=== PATIENT | male | born 1945 | race Caucasian/White ===

== ENCOUNTER 2020-03-17 19:06 | Inpatient (IN) | payer MEDICARE ==
[~2020-03-17] VITALS: Ht 172.7 cm; Wt 95.3 kg
[2020-03-17 19:00] VITALS: BP 131/84
[2020-03-17] MEDS ORDERED: HEPARIN for IV BOLUS 10,000 UNIT/10 ML VIAL. IV PRN ×2 (20:45→21:00)
[2020-03-17] MEDS ORDERED: 0.9 % SODIUM CHLORIDE 10 ML DISP.SYRIN. IV PRN (21:00)
[2020-03-17] MEDS: HEPARIN 25,000UTS/250ML PREMIX 250 ML IV PRN (21:04)
[2020-03-17 22:27] VITALS: BP 148/68
--- NOTE | 2020-03-17 22:38 | PDOC1 ---
History and Physical Date of Admission Date of Admission DATE: 03/17/20 TIME: 22:10 Identification/Chief Complaint Chief Complaint AMS Source Source: Chart review History of Present Illness History of Present Illness Patient is a 74-year-old male who presents as a transfer from [facility] for altered mental status and NSTEMI. Apparently he did not present to work today and police were contacted to perform a wellness visit. Upon arrival he was found in his recliner surrounded by several bottles of beer. Patient reportedly stated to EMS that he had not been feeling well for the past 24 hours, but did not report any symptoms besides generalized fatigue. He denies any fever, chest pain, shortness of breath, cough, sick contacts, or known COVID-19 exposure. His initial troponin at [facility] was noted to be 0.933, with repeat 1.475. He was placed on BiPAP due to acute respiratory failure, and heparin drip. He was transferred to [facility] for cardiology consultation and further medical management. Upon arrival to [facility] several runs of A. fib were noted on telemetry, and according to patient's family they deny any known knowledge of history of atrial fibrillation. Past Medical History Past Medical History Denies pertinent past medical history Past Surgical History Past Surgical History Unable to obtain at this time due to clinical condition Family History Family History Unable to obtain at this time due to clinical condition Social History Drugs: Other (Unable to obtain at this time due to clinical condition) Current Medications Current Medications Current Medications Heparin Sodium (Porcine) (Heparin Sodium) 2,200 unit PRN Q6HRS PRN IV FOR UFH LEVEL LESS THAN 0.2; Start 03/17/20 at 20:45; Status UNV Heparin Sodium/ Dextrose 250 ml @ 0 mls/hr CONT PRN IV PER PROTOCOL Last admi nistered on 03/17/20at 21:04; Start 03/17/20 at 21:00; Status UNV Heparin Sodium (Porcine) (Heparin Sodium) 2,200 unit PRN Q6HRS PRN IV FOR UFH LEVEL LESS THAN 0.2; Start 03/17/20 at 21:00; Stop 03/17/20 at 20:57; Status DC Sodium Chloride (Normal Saline Flush) 3 ml PRN DAILY PRN IV AFTER MEDS AND BLOOD DRAWS; Start 03/17/20 at 21:00; Status UNV ROS Review of System Unable to obtain at this time due to clinical condition Physical Exam Physical Exam General: Lethargic, No acute distress HEENT: PERRLA, EOMI Lungs: Currently breathing on BiPAP, decreased breath sounds, Normal air movement. Heart: Irregularly irregular, no murmurs Cardiovascular: S1, S2 Abdomen: Normal bowel sounds, Soft, No tenderness Extremities: No clubbing, No cyanosis Skin: No rashes, No significant lesion Neuro: Normal tone Psych/Mental Status: Somnolent Vitals Vitals Vital Signs Date Time Temp Pulse Resp B/P (MAP) Pulse Ox O2 Delivery O2 Flow Rate FiO2 03/17/20 19:59 97 BiPAP/CPAP 03/17/20 19:00 98.3 81 20 131/84 (100) 98.3 Labs Labs Laboratory Tests Test 03/17/20 21:00 Heparin Anti-Xa Act, Unfractionated 0.17 IU/mL (0.30-0.70) Troponin I Quantitative 1.447 ng/mL (0.000-0.055) Laboratory Tests Test 03/17/20 21:00 Heparin Anti-Xa Act, Unfractionated 0.17 IU/mL (0.30-0.70) Troponin I Quantitative 1.447 ng/mL (0.000-0.055) VTE Prophylaxis Ordered VTE Prophylaxis Devices: No VTE Pharmacological Prophylaxi: Yes Assessment/Plan Assessment/Plan NSTEMI Acute hypoxic respiratory failure New onset atrial fibrillation COVID-19 PUI Malnutrition Plan: Consultations placed to cardiology Continue heparin drip COVID-19 pending; Patient is currently breathing on BiPAP Anticipate ischemic cardiac work-up when his COVID-19 results are negative Chest x-ray obtained at [facility] showed multifocal ill-defined opacities bilaterally, concerning for viral pneumonia. If COVID-19 positive we will treat patient with steroids and remdesivir FEN - Cardiac diet PPX - Heparin FULL CODE Dispo - inpatient for above Justifications for Admission General Conditions Poss tachycardia?: No Altered mental status?: Yes Other Justification RICK FLOREZ MD Mar 17, 2020 22:38
[2020-03-17] MEDS ORDERED: ONDANSETRON PF 4 MG/2 ML VIAL. IVP PRN (22:45)
[2020-03-17] MEDS ORDERED: MAG HYDROX/ALUMINUM HYD/SIMETH 30 ML ORAL.SUSP PO PRN (22:45)
[2020-03-17] MEDS ORDERED: traMADol 50 MG TABLET PO PRN (22:45)
[2020-03-17] MEDS ORDERED: MAGNESIUM HYDROXIDE 2,400 MG/30 ML ORAL.SUSP. PO PRN (22:45)
[2020-03-17] MEDS ORDERED: MORPHINE SULFATE 2 MG/ML VIAL. IV PRN (22:45)
[2020-03-17] MEDS ORDERED: BISACODYL 10 MG SUPP.RECT. PR PRN (22:45)
[2020-03-17] MEDS ORDERED: CALCIUM CARBONATE 500 MG TAB.CHEW PO PRN (22:45)
[2020-03-18] VITALS (11 sets, daily range): BP systolic 100–150; BP diastolic 62–86
[2020-03-18] MEDS: HEPARIN 25,000UTS/250ML PREMIX 250 ML IV PRN (06:19)
[2020-03-18 07:59] LABS: BASO % 0 % (0-3); EOS % 0 % (0-3); HEMATOCRIT 46.9 % (39.0-53.0); HEMOGLOBIN 16.1 g/dL (13.0-17.5); LYMPH # 1.3 x10^3/uL (1.0-4.8); LYMPH % 13 % (24-48); MEAN CORPUSCULAR HEMOGLOBIN 31 pg (25-35); MEAN CORPUSCULAR HGB CONC 34 g/dL (31-37); MEAN CORPUSCULAR VOLUME 91 fL (79-100); MONO # 0.8 x10^3/uL (0.0-1.1); MONO % 8 % (0-9); NEUT % 79 % (31-73); PLATELET COUNT 218 x10^3/uL (140-400); RED BLOOD COUNT 5.16 x10^6/uL (4.30-5.70); RED CELL DISTRIBUTION WIDTH 13.1 % (11.5-14.5); WHITE BLOOD COUNT 10.1 x10^3/uL (4.0-11.0)
[2020-03-18 08:11] LABS: BASE EXCESS ABG 2 mmol/L (-3-3); HCO3 ABG 26 mmol/L (21-28); PCO2 ABG 39 mmHg (35-46); PO2 ABG 74 mmHg (65-108); SAT O2 ABG 95 % (92-99)
[2020-03-18 08:20] LABS: FIO2 ABG 100% BIPAP
[2020-03-18 08:36] LABS: ALBUMIN 2.4 g/dL (3.4-5.0); ALBUMIN/GLOBULIN RATIO 0.6 (1.0-1.7); CREATININE 0.8 mg/dL (0.7-1.3); GFR 94.5; POTASSIUM 3.9 mmol/L (3.5-5.1); TOTAL PROTEIN 6.5 g/dL (6.4-8.2)
--- NOTE | 2020-03-18 08:45 | PDOC2 ---
SOULEYMANE BARRAZA HAND MOLDER MEAT 03/18/20 0845: CARDIAC CONSULT DATE OF CONSULT Date of Consult DATE: 03/18/20 TIME: 08:30 REASON FOR CONSULT Reason for Consult: Elevated troponin REFERRING PHYSICIAN Referring Physician: Leonardo SOURCE Source: Chart review, Patient HISTORY OF PRESENT ILLNESS HISTORY OF PRESENT ILLNESS This is a 74 yo male admitted for complains of shortness of breath in about 2-3 days now. Denies any chest pain. He has been struggling to breath. Denies rpiro exposure to covid-19. Reports no diarrhea or nausea or vomiiting. He was initially at [facility] and transferred here for further treatment with noted NSTEMI as well. Denies any prior hx of CAD DM2, COPD, arrhythmias, VTE. Denies any routine home medications. Based on prior clinic visits with primary care providers he has been receptive with further medical treatments in the past. No known prior stress test. PAST MEDICAL HISTORY Cardiovascular: AFIB (?), HTN (on losartan 50 mg) Pulmonary: No pertinent hx CENTRAL NERVOUS SYSTEM: Other (No pertinent history) Heme/Onc: No pertinent hx Hepatobiliary: No pertinent hx Psych: No pertinent hx Musculoskeletal: Osteoarthritis Infectious disease: Herpes zoster (was on acyclovir), Other (Leg cellulitis) ENT: Other (cataract) Renal/: Benign prostatic enlarg. Dermatology: Rash PAST SURGICAL HISTORY Past Surgical History: Other (right hand and left foot surgery) FAMILY HISTORY Family History noncontributory SOCIAL HISTORY Smoke: Quit ALCOHOL: none Drugs: None Lives: Alone CURRENT MEDICATIONS CURRENT MEDICATIONS Current Medications Medications (Trade) Dose Ordered Sig/Brissa Route PRN Reason Start Time Stop Time Status Last Admin Dose Admin Heparin Sodium (Porcine) (Heparin Sodium) 2,200 unit PRN Q6HRS PRN IV FOR UFH LEVEL LESS THAN 0.2 03/17/20 20:45 03/17/20 23:12 Heparin Sodium/ Dextrose 250 ml @ 0 mls/hr CONT PRN IV PER PROTOCOL 03/17/20 21:00 03/18/20 06:19 Tramadol HCl (Ultram) 50 mg PRN Q6HRS PRN PO PAIN 03/17/20 22:45 03/18/20 02:41 ALLERGIES ALLERGIES: Coded Allergies: No Known Drug Allergies (Unverified , 03/17/20) ROS Review of System 14 point ROS evaluated with pertinent positives noted per HPI PHYSICAL EXAM General: Alert, Oriented X3, Cooperative, moderate distress HEENT: Atraumatic, Mucous membr. moist/pink Lungs: Other (diminished) Heart: Regular rate (SR), Normal S1, Normal S2, No murmurs Abdomen: Soft, Other (truncal obesity) Extremities: No cyanosis, No edema Skin: No breakdown, Other (dirty hands with black stains) Neuro: Normal speech, Sensation intact Psych/Mental Status: Mental status NL, Mood NL MUSCULOSKELETAL: Osteoarthritic changes both hands VITALS/I&O VITALS/I&O: Vital Signs Date Time Temp Pulse Resp B/P (MAP) Pulse Ox O2 Delivery O2 Flow Rate FiO2 03/18/20 08:14 97 BiPAP/CPAP 03/18/20 02:13 98.4 81 24 150/86 (107) 98.4 I & O 03/17/20 03/17/20 03/18/20 15:00 23:00 07:00 Output Total 200 ml 400 ml Balance -200 ml -400 ml LABS Lab: Laboratory Tests Test 03/17/20 21:00 03/18/20 06:45 03/18/20 08:00 Heparin Anti-Xa Act, Unfractionated 0.17 IU/mL (0.30-0.70) L Troponin I Quantitative 1.447 ng/mL (0.000-0.055) White Blood Count 10.1 x10^3/uL (4.0-11.0) Red Blood Count 5.16 x10^6/uL (4.30-5.70) Hemoglobin 16.1 g/dL (13.0-17.5) Hematocrit 46.9 % (39.0-53.0) Mean Corpuscular Volume 91 fL (79-100) Mean Corpuscular Hemoglobin 31 pg (25-35) Mean Corpuscular Hemoglobin Concent 34 g/dL (31-37) Red Cell Distribution Width 13.1 % (11.5-14.5) Platelet Count 218 x10^3/uL (140-400) Neutrophils (%) (Auto) 79 % (31-73) H Lymphocytes (%) (Auto) 13 % (24-48) L Monocytes (%) (Auto) 8 % (0-9) Eosinophils (%) (Auto) 0 % (0-3) Basophils (%) (Auto) 0 % (0-3) Neutrophils # (Auto) 8.0 x10^3/uL (1.8-7.7) H Lymphocytes # (Auto) 1.3 x10^3/uL (1.0-4.8) Monocytes # (Auto) 0.8 x10^3/uL (0.0-1.1) Eosinophils # (Auto) 0.0 x10^3/uL (0.0-0.7) Basophils # (Auto) 0.0 x10^3/uL (0.0-0.2) O2 Saturation 95 % (92-99) Arterial Blood pH 7.45 (7.35-7.45) Arterial Blood pCO2 at Patient Temp 39 mmHg (35-46) Arterial Blood pO2 at Patient Temp 74 mmHg (65-108) Arterial Blood HCO3 26 mmol/L (21-28) Arterial Blood Base Excess 2 mmol/L (-3-3) FiO2 100% bipap Laboratory Tests 03/18/20 06:45 ASSESSMENT/PLAN ASSESSMENT/PLAN 1. Acute hypoxic respiratory failure with covid-19 pneumonia 2. NSTEMI: Peaked at 1.4 no acute EKG changes, suspect demand mediated with associated covid. no CP 3. Hypokalemia: replaced 4. Mild rhabdomyolysis 5. Urinary retention with prostamegaly 6. Anion gap metabolic acidosis with dehydration: resolved 7. Poor self care Recommendations Heparin drip, may change to lovenox ASA, Resume losartan if able to take PO, Check lipids Covid treatment to commence Lung optimization per pulmonary Bipap TTE and outpt ischemic workup as an outpt Supportive care CANDELARIA DEJESUS MD 03/18/20 1439: CARDIAC CONSULT ASSESSMENT/PLAN ASSESSMENT/PLAN Patient seen and examined. Agree with [facility]'s assessment and plan. Acute hypoxic respiratory failure secondary to Covid pneumonia. Continue treatment per pulmonary team. Non-STEMI most probably demand ischemia. Patient denied any chest pain. Plan for 2D echo and ischemic evaluation once he recovers from Covid, possibly as an outpatient. Thank you for your consultation SOULEYMANE BARRAZA APRN Mar 18, 2020 08:45 CANDELARIA DEJESUS MD Mar 18, 2020 14:39
[2020-03-18] MEDS ORDERED: FUROSEMIDE 40 MG/4 ML VIAL. IVP ONE (09:00)
[2020-03-18] MEDS: ASPIRIN ENTERIC COATED 81 MG TABLET.DR. PO SCH (09:03)
--- NOTE | 2020-03-18 09:11 | RAD ---
EXAM: Chest, single view. HISTORY: Shortness of breath. COMPARISON: 03/17/2020 FINDINGS: A frontal view of the chest is obtained. There has been no stable change in diffuse mixed i nterstitial and alveolar infiltrate superimposed on suspected chronic interstitial changes. There is a stable region of lucency along the lateral left mid thorax likely due to focal atelectasis change o r scarring. No convincing pneumothorax is seen. There is no pleural effusion. The heart is stable in size. IMPRESSION: Stable diffuse infiltrate superimposed on chronic interstitial changes. Electronically signed by: Devika Kendrick MD (03/18/2020 9:08 AM) [id number]
[2020-03-18 09:18] LABS: MAGNESIUM 2.3 mg/dL (1.8-2.4)
[2020-03-18 09:19] LABS: CHOLESTEROL/HDL RATIO 8.1
--- NOTE | 2020-03-18 09:23 | CONS ---
DATE OF CONSULTATION: PULMONARY CONSULTATION ATTENDING PHYSICIAN: Clyde Patterson MD REASON FOR CONSULTATION: Respiratory failure. HISTORY OF PRESENT ILLNESS: The patient is a 74-year-old male who was transferred from [facility] where he presented with altered mental status and non-STEMI. The patient did not present to work. He was found in his recliner surrounded by several bottles of beer. He reportedly was not feeling well for 24 hours prior to his hospitalization. No obvious fever, chest pain or cough or shortness of breath or COVID exposures were reported. His initial troponin level was 0.9 at [facility] and repeat was 1.4. He is currently on BiPAP at 100% FiO2. His ABG showed a pH of 7.45, pCO2 of 39 and a pO2 of 74 on 100% BiPAP. He is not in any distress. His chest x-ray was reviewed and it shows diffuse patchy interstitial infiltrates. I have been asked to see him for further evaluation. PAST MEDICAL HISTORY: Significant for history of alcoholism. Unable to obtain any detailed history. PAST SURGICAL HISTORY: Unknown. SOCIAL HISTORY: Unable to obtain from the patient. ALLERGIES: None. MEDICATIONS: Reviewed as listed in the MRAD. REVIEW OF SYSTEMS: Unable to obtain from the patient due to his being on BiPAP. PHYSICAL EXAMINATION: VITAL SIGNS: Reviewed. Blood pressure stable, pulse ox 97% on 100% FiO2 with BiPAP. HEENT: Visual exam done due to COVID suspicion. No obvious respiratory distress. EXTREMITIES: No leg edema. SKIN: No skin rash. LABORATORY DATA: Reviewed. ABGs showed a pH of 7.45, pCO2 of 39, pO2 of 74. BUN is 21, creatinine 0.8, AST 80, ALT 47, albumin 2.4. IMPRESSION: 1. Acute hypoxic respiratory failure, requiring 100% FiO2 with BiPAP. The etiology could be multifactorial. He has AFib and possibility of diastolic congestive heart failure is in the differential diagnosis; however, COVID-19 viral pneumonia is also strongly suspected. 2. Kew-VC-mwwlbzlmh myocardial infarction 3. History of alcoholism. 4. Moderate to severe protein-calorie malnutrition. 5. Abnormal troponin with non-ST myocardial infarction. RECOMMENDATIONS: 1. Continue present BiPAP at 100% FiO2. 2. Trial of diuresis. 3. Rule out COVID. 4. Heparin per protocol per Cardiology. 5. Follow cardiology recommendations. 6. We may transfer the patient to the ICU for close monitoring. 7. Discussed with RN. We will follow along with you. Critical care time 35 minutes. IRVIN STOUT MD DR: CHANEL/gabriel JOB#: [id number] / [id number]
--- NOTE | 2020-03-18 10:10 | PDOC ---
[employer] PROGRESS NOTE Date of Service DOS: DATE: 03/18/20 TIME: 09:58 Chief Complaint Chief Complaint NSTEMI Acute hypoxic respiratory failure New onset atrial fibrillation COVID-19 PUI Malnutrition Plan: Consultations placed to cardiology Continue heparin drip COVID-19 pending; Patient is currently breathing on BiPAP Anticipate ischemic cardiac work-up when his COVID-19 results are negative Chest x-ray obtained at [facility] showed multifocal ill-defined opacities bilaterally, concerning for viral pneumonia. If COVID-19 positive we will treat patient with steroids and remdesivir FEN - Cardiac diet PPX - Heparin FULL CODE History of Present Illness History of Present Illness Patient is a 74-year-old male who presents as a transfer from [facility] for altered mental status and NSTEMI. Apparently he did not present to work today and police were contacted to perform a wellness visit. Upon arrival he was found in his recliner surrounded by several bottles of beer. Patient reportedly stated to EMS that he had not been feeling well for the past 24 hours, but did not report any symptoms besides generalized fatigue. He denies any fever, chest pain, shortness of breath, cough, sick contacts, or known COVID-19 exposure. His initial troponin at [facility] was noted to be 0.933, with repeat 1.475. He was placed on BiPAP due to acute respiratory failure, and heparin drip. He was transferred to [facility] for cardiology consultation and further medical management. Upon arrival to [facility] several runs of A. fib were noted on telemetry, and according to patient's family they deny any known knowledge of history of atrial fibrillation. 03/18: Patient seen and evaluated. Afebrile, breathing on BiPAP at FiO2 100%. ABG obtained today shows pH 7.45, PO2 74, PCO2 39. WBC 10.1. Pro Tani elevated at 4.22. Repeat chest x-ray still stable bilateral diffuse infiltrates. COVID- 19 pending. Provide antibiotic coverage with Rocephin and doxycycline. Pulmonology has been consulted due to respiratory distress on BiPAP. Vitals/I&O Vitals/I&O: Vital Signs Date Time Temp Pulse Resp B/P (MAP) Pulse Ox O2 Delivery O2 Flow Rate FiO2 03/18/20 08:14 97 BiPAP/CPAP 03/18/20 07:00 96.9 98 26 134/81 (98) 96.9 I & O 03/17/20 03/17/20 03/18/20 15:00 23:00 07:00 Output Total 200 ml 400 ml Balance -200 ml -400 ml Physical Exam General: Other (Mild distress) Heart: Regular rate Lungs: Other (Decreased breath sounds) Abdomen: Soft, Other (Nondistended) Extremities: No clubbing, No cyanosis, No edema Skin: No rashes, No breakdown Labs Labs: Laboratory Tests Test 03/17/20 21:00 03/18/20 06:45 03/18/20 08:00 Heparin Anti-Xa Act, Unfractionated 0.17 IU/mL (0.30-0.70) Troponin I Quantitative 1.447 ng/mL (0.000-0.055) White Blood Count 10.1 x10^3/uL (4.0-11.0) Red Blood Count 5.16 x10^6/uL (4.30-5.70) Hemoglobin 16.1 g/dL (13.0-17.5) Hematocrit 46.9 % (39.0-53.0) Mean Corpuscular Volume 91 fL (79-100) Mean Corpuscular Hemoglobin 31 pg (25-35) Mean Corpuscular Hemoglobin Concent 34 g/dL (31-37) Red Cell Distribution Width 13.1 % (11.5-14.5) Platelet Count 218 x10^3/uL (140-400) Neutrophils (%) (Auto) 79 % (31-73) Lymphocytes (%) (Auto) 13 % (24-48) Monocytes (%) (Auto) 8 % (0-9) Eosinophils (%) (Auto) 0 % (0-3) Basophils (%) (Auto) 0 % (0-3) Neutrophils # (Auto) 8.0 x10^3/uL (1.8-7.7) Lymphocytes # (Auto) 1.3 x10^3/uL (1.0-4.8) Monocytes # (Auto) 0.8 x10^3/uL (0.0-1.1) Eosinophils # (Auto) 0.0 x10^3/uL (0.0-0.7) Basophils # (Auto) 0.0 x10^3/uL (0.0-0.2) Sodium Level 137 mmol/L (136-145) Potassium Level 3.9 mmol/L (3.5-5.1) Chloride Level 100 mmol/L (98-107) Carbon Dioxide Level 26 mmol/L (21-32) Anion Gap 11 (6-14) Blood Urea Nitrogen 21 mg/dL (8-26) Creatinine 0.8 mg/dL (0.7-1.3) Estimated GFR (Cockcroft-Gault) 94.5 BUN/Creatinine Ratio 26 (6-20) Glucose Level 119 mg/dL (70-99) Calcium Level 8.0 mg/dL (8.5-10.1) Magnesium Level 2.3 mg/dL (1.8-2.4) Total Bilirubin 1.0 mg/dL (0.2-1.0) Aspartate Amino Transf (AST/SGOT) 80 U/L (15-37) Alanine Aminotransferase (ALT/SGPT) 47 U/L (16-63) Alkaline Phosphatase 93 U/L (46-116) Total Protein 6.5 g/dL (6.4-8.2) Albumin 2.4 g/dL (3.4-5.0) Albumin/Globulin Ratio 0.6 (1.0-1.7) Triglycerides Level 212 mg/dL (0-150) Cholesterol Level 162 mg/dL (0-200) LDL Cholesterol, Calculated 100 mg/dL (0-100) VLDL Cholesterol, Calculated 42 mg/dL (0-40) Non-HDL Cholesterol Calculated 142 mg/dL (0-129) HDL Cholesterol 20 mg/dL (40-60) Cholesterol/HDL Ratio 8.1 Procalcitonin 4.22 ng/mL (0.00-0.10) O2 Saturation 95 % (92-99) Arterial Blood pH 7.45 (7.35-7.45) Arterial Blood pCO2 at Patient Temp 39 mmHg (35-46) Arterial Blood pO2 at Patient Temp 74 mmHg (65-108) Arterial Blood HCO3 26 mmol/L (21-28) Arterial Blood Base Excess 2 mmol/L (-3-3) FiO2 100% bipap Comment Review of Relevant I have reviewed the following items ángela (where applicable) has been applied. Medications: Current Medications Medications (Trade) Dose Ordered Sig/Brissa Route PRN Reason Start Time Stop Time Status Last Admin Dose Admin Heparin Sodium (Porcine) (Heparin Sodium) 2,200 unit PRN Q6HRS PRN IV FOR UFH LEVEL LESS THAN 0.2 03/17/20 20:45 03/17/20 23:12 Heparin Sodium/ Dextrose 250 ml @ 0 mls/hr CONT PRN IV PER PROTOCOL 03/17/20 21:00 03/18/20 06:19 Tramadol HCl (Ultram) 50 mg PRN Q6HRS PRN PO PAIN 03/17/20 22:45 03/18/20 02:41 Aspirin (Ecotrin) 81 mg [id number] PO 03/18/20 09:00 03/18/20 09:03 Furosemide (Lasix) 40 mg 1X ONCE IVP 03/18/20 09:00 03/18/20 09:01 DC 03/18/20 09:02 Justifications for Admission General Conditions Poss tachycardia?: No Altered mental status?: Yes Other Justification NSTEMI, new onset A. fib, respiratory failure with hypoxia RICK FLOREZ MD Mar 18, 2020 10:10
[2020-03-18] MEDS: cefTRIAXone IV Push 1 GM VIAL. IVP SCH (11:14)
[2020-03-18] MEDS: DOXYCYCLINE HYCLATE 100 MG in IV DEXTROSE 5% 100ML 100 ML IV SCH ×2 (11:14→20:05)
[2020-03-18] MEDS ORDERED: DEXTROSE 50% 25 GM / 50ML DISP.SYRIN. IV PRN (12:15)
--- NOTE | 2020-03-18 12:19 | PDOC ---
[employer] PROGRESS NOTE Date of Service DOS: DATE: 03/18/20 TIME: 11:58 Chief Complaint Chief Complaint NSTEMI Acute hypoxic respiratory failure New onset atrial fibrillation COVID-19 PUI Malnutrition Plan: Consultations placed to cardiology Continue heparin drip COVID-19 pending; Patient is currently breathing on BiPAP Anticipate ischemic cardiac work-up when his COVID-19 results are negative Chest x-ray obtained at [facility] showed multifocal ill-defined opacities bilaterally, concerning for viral pneumonia. If COVID-19 positive we will treat patient with steroids and remdesivir FEN - Cardiac diet PPX - Heparin FULL CODE History of Present Illness History of Present Illness Patient is a 74-year-old male who presents as a transfer from [facility] for altered mental status and NSTEMI. Apparently he did not present to work today and police were contacted to perform a wellness visit. Upon arrival he was found in his recliner surrounded by several bottles of beer. Patient reportedly stated to EMS that he had not been feeling well for the past 24 hours, but did not report any symptoms besides generalized fatigue. He denies any fever, chest pain, shortness of breath, cough, sick contacts, or known COVID-19 exposure. His initial troponin at [facility] was noted to be 0.933, with repeat 1.475. He was placed on BiPAP due to acute respiratory failure, and heparin drip. He was transferred to [facility] for cardiology consultation and further medical management. Upon arrival to [facility] several runs of A. fib were noted on telemetry, and according to patient's family they deny any known knowledge of history of atrial fibrillation. 03/18: Patient seen and evaluated. Lab results taken at [facility] showing he is COVID-19 positive. Afebrile, breathing on BiPAP at FiO2 100%. ABG obtained today shows pH 7.45, PO2 74, PCO2 39. WBC 10.1. Pro Tani elevated at 4.22. Repeat chest x-ray still stable bilateral diffuse infiltrates. Provide antibiotic coverage with Rocephin and doxycycline. Pulmonology has been consulted due to respiratory distress on BiPAP. Will initiate steroids, remdesivir. Continue supportive care. Vitals/I&O Vitals/I&O: Vital Signs Date Time Temp Pulse Resp B/P (MAP) Pulse Ox O2 Delivery O2 Flow Rate FiO2 1/8/21 11:00 98.7 88 20 129/81 (97) 94 BiPAP/CPAP 98.7 I & O 03/17/20 03/17/20 03/18/20 15:00 23:00 07:00 Output Total 200 ml 400 ml Balance -200 ml -400 ml Physical Exam General: Other (Mild distress) Heart: Regular rate Lungs: Other (Decreased breath sounds) Abdomen: Soft, Other (Nondistended) Extremities: No clubbing, No cyanosis, No edema Skin: No rashes, No breakdown Labs Labs: Laboratory Tests Test 03/17/20 21:00 03/18/20 06:45 03/18/20 08:00 03/18/20 08:45 Heparin Anti-Xa Act, Unfractionated 0.17 IU/mL (0.30-0.70) > 1.10 IU/mL (0.30-0.70) Troponin I Quantitative 1.447 ng/mL (0.000-0.055) White Blood Count 10.1 x10^3/uL (4.0-11.0) Red Blood Count 5.16 x10^6/uL (4.30-5.70) Hemoglobin 16.1 g/dL (13.0-17.5) Hematocrit 46.9 % (39.0-53.0) Mean Corpuscular Volume 91 fL (79-100) Mean Corpuscular Hemoglobin 31 pg (25-35) Mean Corpuscular Hemoglobin Concent 34 g/dL (31-37) Red Cell Distribution Width 13.1 % (11.5-14.5) Platelet Count 218 x10^3/uL (140-400) Neutrophils (%) (Auto) 79 % (31-73) Lymphocytes (%) (Auto) 13 % (24-48) Monocytes (%) (Auto) 8 % (0-9) Eosinophils (%) (Auto) 0 % (0-3) Basophils (%) (Auto) 0 % (0-3) Neutrophils # (Auto) 8.0 x10^3/uL (1.8-7.7) Lymphocytes # (Auto) 1.3 x10^3/uL (1.0-4.8) Monocytes # (Auto) 0.8 x10^3/uL (0.0-1.1) Eosinophils # (Auto) 0.0 x10^3/uL (0.0-0.7) Basophils # (Auto) 0.0 x10^3/uL (0.0-0.2) Sodium Level 137 mmol/L (136-145) Potassium Level 3.9 mmol/L (3.5-5.1) Chloride Level 100 mmol/L (98-107) Carbon Dioxide Level 26 mmol/L (21-32) Anion Gap 11 (6-14) Blood Urea Nitrogen 21 mg/dL (8-26) Creatinine 0.8 mg/dL (0.7-1.3) Estimated GFR (Cockcroft-Gault) 94.5 BUN/Creatinine Ratio 26 (6-20) Glucose Level 119 mg/dL (70-99) Calcium Level 8.0 mg/dL (8.5-10.1) Magnesium Level 2.3 mg/dL (1.8-2.4) Total Bilirubin 1.0 mg/dL (0.2-1.0) Aspartate Amino Transf (AST/SGOT) 80 U/L (15-37) Alanine Aminotransferase (ALT/SGPT) 47 U/L (16-63) Alkaline Phosphatase 93 U/L (46-116) Total Protein 6.5 g/dL (6.4-8.2) Albumin 2.4 g/dL (3.4-5.0) Albumin/Globulin Ratio 0.6 (1.0-1.7) Triglycerides Level 212 mg/dL (0-150) Cholesterol Level 162 mg/dL (0-200) LDL Cholesterol, Calculated 100 mg/dL (0-100) VLDL Cholesterol, Calculated 42 mg/dL (0-40) Non-HDL Cholesterol Calculated 142 mg/dL (0-129) HDL Cholesterol 20 mg/dL (40-60) Cholesterol/HDL Ratio 8.1 Procalcitonin 4.22 ng/mL (0.00-0.10) O2 Saturation 95 % (92-99) Arterial Blood pH 7.45 (7.35-7.45) Arterial Blood pCO2 at Patient Temp 39 mmHg (35-46) Arterial Blood pO2 at Patient Temp 74 mmHg (65-108) Arterial Blood HCO3 26 mmol/L (21-28) Arterial Blood Base Excess 2 mmol/L (-3-3) FiO2 100% bipap Comment Review of Relevant I have reviewed the following items ángela (where applicable) has been applied. Medications: Current Medications Medications (Trade) Dose Ordered Sig/Brissa Route PRN Reason Start Time Stop Time Status Last Admin Dose Admin Heparin Sodium (Porcine) (Heparin Sodium) 2,200 unit PRN Q6HRS PRN IV FOR UFH LEVEL LESS THAN 0.2 03/17/20 20:45 03/17/20 23:12 Heparin Sodium/ Dextrose 250 ml @ 0 mls/hr CONT PRN IV PER PROTOCOL 03/17/20 21:00 03/18/20 06:19 Tramadol HCl (Ultram) 50 mg PRN Q6HRS PRN PO PAIN 03/17/20 22:45 03/18/20 02:41 Aspirin (Ecotrin) 81 mg DAILYWBKFT PO 03/18/20 09:00 03/18/20 09:03 Furosemide (Lasix) 40 mg 1X ONCE IVP 03/18/20 09:00 03/18/20 09:01 DC 03/18/20 09:02 Ceftriaxone Sodium (Rocephin) 1 gm Q24H IVP 03/18/20 11:00 03/18/20 11:14 Doxycycline Hyclate 100 mg/ Dextrose 100 ml @ 50 mls/hr Q12HR IV 03/18/20 11:00 03/18/20 11:14 Justifications for Admission General Conditions Poss tachycardia?: No Altered mental status?: Yes Other Justification NSTEMI, new onset A. fib, respiratory failure with hypoxia RICK FLOREZ MD Mar 18, 2020 12:19
[2020-03-18] MEDS: ASCORBIC ACID 500 MG TABLET PO SCH ×3 (12:51→23:48)
[2020-03-18] MEDS: CHOLECALCIFEROL (VITAMIN D3) 5,000 UNIT CAPSULE PO SCH (12:51)
[2020-03-18] MEDS ORDERED: REMDESIVIR LOAD in IV NORMAL SALINE 250ML TV IV ONE (13:00)
[2020-03-18] MEDS ORDERED: ENOXAPARIN 40 MG/0.4 ML SYRINGE. SQ SCH (13:00)
[2020-03-18] MEDS ORDERED: DEXAMETHASONE SOD PHOS 4 MG/ML VIAL IVP ONE (13:00)
--- NOTE | 2020-03-18 13:41 | NUR ---
SS following for discharge planning. SS reviewed pt chart and discussed with pt RN. Pt is from home and is currently on the BIPAP at 100%. COVID19 positive. Pt on IV Remdesivir, IV Doxycycline, and IV Rocephin. Not stable. SS will continue to follow for discharge planning.
[2020-03-18] MEDS: INSULIN LISPRO 300 UNITS/3 ML VIAL. SQ SCH (17:00)
[2020-03-18] MEDS: ATORVASTATIN CALCIUM 10 MG TABLET. PO SCH (20:05)
[2020-03-19] VITALS (23 sets, daily range): BP systolic 95–137; BP diastolic 62–84
[2020-03-19] MEDS ORDERED: STERILE WATER for RESP 1,000 ML BAG. INH PRN
[2020-03-19 05:27] LABS: BASO % 0 % (0-3); EOS % 0 % (0-3); HEMATOCRIT 43.6 % (39.0-53.0); HEMOGLOBIN 14.9 g/dL (13.0-17.5); LYMPH # 0.7 x10^3/uL (1.0-4.8); LYMPH % 8 % (24-48); MEAN CORPUSCULAR HEMOGLOBIN 31 pg (25-35); MEAN CORPUSCULAR HGB CONC 34 g/dL (31-37); MEAN CORPUSCULAR VOLUME 91 fL (79-100); MONO # 0.9 x10^3/uL (0.0-1.1); MONO % 11 % (0-9); NEUT # 7.1 x10^3/uL (1.8-7.7); NEUT % 81 % (31-73); PLATELET COUNT 254 x10^3/uL (140-400); RED BLOOD COUNT 4.82 x10^6/uL (4.30-5.70); WHITE BLOOD COUNT 8.8 x10^3/uL (4.0-11.0)
[2020-03-19] MEDS: ASCORBIC ACID 500 MG TABLET PO SCH ×4 (05:27→23:54)
[2020-03-19 05:31] LABS: CALCIUM 8.1 mg/dL (8.5-10.1); CREATININE 0.9 mg/dL (0.7-1.3); GFR 82.5; POTASSIUM 3.5 mmol/L (3.5-5.1)
[2020-03-19] MEDS: INSULIN LISPRO 300 UNITS/3 ML VIAL. SQ SCH ×3 (08:00→17:00)
[2020-03-19] MEDS: ASPIRIN ENTERIC COATED 81 MG TABLET.DR. PO SCH (08:08)
[2020-03-19] MEDS: DOXYCYCLINE HYCLATE 100 MG in IV DEXTROSE 5% 100ML 100 ML IV SCH ×2 (08:08→20:53)
[2020-03-19] MEDS: DEXAMETHASONE SOD PHOS 4 MG/ML VIAL IVP SCH (08:09)
[2020-03-19] MEDS: CHOLECALCIFEROL (VITAMIN D3) 5,000 UNIT CAPSULE PO SCH (08:09)
[2020-03-19 08:53] LABS: BASE EXCESS ABG 4 mmol/L (-3-3); HCO3 ABG 27 mmol/L (21-28); PCO2 ABG 36 mmHg (35-46); PO2 ABG 51 mmHg (65-108); SAT O2 ABG 89 % (92-99)
--- NOTE | 2020-03-19 09:03 | PDOC ---
[employer] PROGRESS NOTE Date of Service DOS: DATE: 03/19/20 TIME: 08:56 Chief Complaint Chief Complaint NSTEMI Acute hypoxic respiratory failure New onset atrial fibrillation COVID-19 PUI Malnutrition Plan: Consultations placed to cardiology Continue heparin drip COVID-19 pending; Patient is currently breathing on BiPAP Anticipate ischemic cardiac work-up when his COVID-19 results are negative Chest x-ray obtained at [facility] showed multifocal ill-defined opacities bilaterally, concerning for viral pneumonia. If COVID-19 positive we will treat patient with steroids and remdesivir FEN - Cardiac diet PPX - Heparin FULL CODE History of Present Illness History of Present Illness Patient is a 74-year-old male who presents as a transfer from [facility] for altered mental status and NSTEMI. Apparently he did not present to work today and police were contacted to perform a wellness visit. Upon arrival he was found in his recliner surrounded by several bottles of beer. Patient reportedly stated to EMS that he had not been feeling well for the past 24 hours, but did not report any symptoms besides generalized fatigue. He denies any fever, chest pain, shortness of breath, cough, sick contacts, or known COVID-19 exposure. His initial troponin at [facility] was noted to be 0.933, with repeat 1.475. He was placed on BiPAP due to acute respiratory failure, and heparin drip. He was transferred to [facility] for cardiology consultation and further medical management. Upon arrival to [facility] several runs of A. fib were noted on telemetry, and according to patient's family they deny any known knowledge of history of atrial fibrillation. 03/19: Moved into the ICU overnight due to concern of worsening shortness of breath. Currently breathing on 40 L Vapotherm. He is afebrile, denies chest pain. Continue with steroids, antibiotics, remdesivir day 2/5. Discussed with RN. 03/18: Patient seen and evaluated. Lab results taken at [facility] showing he is COVID-19 positive. Afebrile, breathing on BiPAP at FiO2 100%. ABG obtained today shows pH 7.45, PO2 74, PCO2 39. WBC 10.1. Pro Tani elevated at 4.22. Repeat chest x-ray still stable bilateral diffuse infiltrates. Provide antibiotic coverage with Rocephin and doxycycline. Pulmonology has been consulted due to respiratory distress on BiPAP. Will initiate steroids, remdesivir. Continue supportive care. Vitals/I&O Vitals/I&O: Vital Signs Date Time Temp Pulse Resp B/P (MAP) Pulse Ox O2 Delivery O2 Flow Rate FiO2 03/19/20 08:00 97.7 85 23 121/73 (89) 89 Vapotherm + non rebreather 40.0 97.7 I & O 03/18/20 03/18/20 03/19/20 15:00 23:00 07:00 Intake Total 0 ml 200 ml 100 ml Output Total 1300 ml 300 ml 650 ml Balance -1300 ml -100 ml -550 ml Physical Exam General: Alert, Oriented X3, Cooperative, mild distress Heart: Regular rate (SR), Normal S1, Normal S2, No murmurs Lungs: Other (Decreased breath sounds) Abdomen: Soft Extremities: No clubbing, No cyanosis, No edema Skin: No rashes, No breakdown Labs Labs: Laboratory Tests Test 03/18/20 15:10 03/18/20 17:34 03/19/20 05:00 Heparin Anti-Xa Act, Unfractionated 0.42 IU/mL (0.30-0.70) Glucose (Fingerstick) 143 mg/dL (70-99) White Blood Count 8.8 x10^3/uL (4.0-11.0) Red Blood Count 4.82 x10^6/uL (4.30-5.70) Hemoglobin 14.9 g/dL (13.0-17.5) Hematocrit 43.6 % (39.0-53.0) Mean Corpuscular Volume 91 fL (79-100) Mean Corpuscular Hemoglobin 31 pg (25-35) Mean Corpuscular Hemoglobin Concent 34 g/dL (31-37) Red Cell Distribution Width 13.0 % (11.5-14.5) Platelet Count 254 x10^3/uL (140-400) Neutrophils (%) (Auto) 81 % (31-73) Lymphocytes (%) (Auto) 8 % (24-48) Monocytes (%) (Auto) 11 % (0-9) Eosinophils (%) (Auto) 0 % (0-3) Basophils (%) (Auto) 0 % (0-3) Neutrophils # (Auto) 7.1 x10^3/uL (1.8-7.7) Lymphocytes # (Auto) 0.7 x10^3/uL (1.0-4.8) Monocytes # (Auto) 0.9 x10^3/uL (0.0-1.1) Eosinophils # (Auto) 0.0 x10^3/uL (0.0-0.7) Basophils # (Auto) 0.0 x10^3/uL (0.0-0.2) Sodium Level 136 mmol/L (136-145) Potassium Level 3.5 mmol/L (3.5-5.1) Chloride Level 100 mmol/L (98-107) Carbon Dioxide Level 29 mmol/L (21-32) Anion Gap 7 (6-14) Blood Urea Nitrogen 23 mg/dL (8-26) Creatinine 0.9 mg/dL (0.7-1.3) Estimated GFR (Cockcroft-Gault) 82.5 Glucose Level 139 mg/dL (70-99) Calcium Level 8.1 mg/dL (8.5-10.1) Comment Review of Relevant I have reviewed the following items ángela (where applicable) has been applied. Medications: Current Medications Medications (Trade) Dose Ordered Sig/Brissa Route PRN Reason Start Time Stop Time Status Last Admin Dose Admin Aspirin (Ecotrin) 81 mg DAILYWBKFT PO 03/18/20 09:00 03/19/20 08:08 Furosemide (Lasix) 40 mg 1X ONCE IVP 03/18/20 09:00 03/18/20 09:01 DC 03/18/20 09:02 Ceftriaxone Sodium (Rocephin) 1 gm Q24H IVP 03/18/20 11:00 03/18/20 11:14 Doxycycline Hyclate 100 mg/ Dextrose 100 ml @ 50 mls/hr Q12HR IV 03/18/20 11:00 03/19/20 08:08 Dexamethasone Sodium Phosphate (Decadron) 6 mg DAILY IVP 03/19/20 09:00 03/19/20 08:09 Dexamethasone Sodium Phosphate (Decadron) 6 mg 1X ONCE IVP 03/18/20 13:00 03/18/20 13:01 DC 03/18/20 12:49 Ascorbic Acid (Vitamin C) 500 mg Q6HRS PO 03/18/20 13:00 03/19/20 05:27 Vitamin D (Vitamin D3) 5,000 unit DAILY PO 03/18/20 13:00 03/19/20 08:09 Remdesivir 200 mg/ Sodium Chloride 210 ml @ 210 mls/hr 1X ONCE IV 03/18/20 13:00 03/18/20 13:59 DC 03/18/20 13:42 Enoxaparin Sodium (Lovenox 40mg Syringe) 40 mg Q24H SQ 03/18/20 13:00 03/18/20 12:51 Atorvastatin Calcium (Lipitor) 10 mg QHS PO 03/18/20 21:00 03/18/20 20:05 Sterile Water (WATER for RESP) 1,000 ml CONT PRN INH VIA VAPOTHERM DEVICE 03/19/20 00:00 03/19/20 00:00 Justifications for Admission General Conditions Poss tachycardia?: No Altered mental status?: Yes Other Justification NSTEMI, new onset A. fib, respiratory failure with hypoxia RICK FLOREZ MD Mar 19, 2020 09:03
[2020-03-19 09:06] LABS: FIO2 ABG 100/VAPO+NRB
--- NOTE | 2020-03-19 09:26 | PDOC ---
PULMONARY PROGRESS NOTES DATE: 03/19/20 TIME: 09:20 Subjective PT. is on !00% Vapotherm and 40 liters W/ 100% NRB mask hypoxic on exam afebrile Vitals Vital Signs Date Time Temp Pulse Resp B/P (MAP) Pulse Ox O2 Delivery O2 Flow Rate FiO2 03/19/20 09:00 77 22 114/68 (83) 85 Vapotherm + non rebreather 40.0 03/19/20 08:00 97.7 97.7 ROS: No Nausea, No Chest Pain, No Abdominal Pain, No Increase Cough General: Alert Lungs: Other (Decreased breath sounds) Cardiovascular: S1 Abdomen: Soft, Non-tender Neuro Exam: Alert Extremities: No Edema Skin: Warm Labs Laboratory Tests Test 03/17/20 21:00 03/18/20 06:45 03/18/20 08:00 03/18/20 08:45 Heparin Anti-Xa Act, Unfractionated 0.17 IU/mL (0.30-0.70) > 1.10 IU/mL (0.30-0.70) Troponin I Quantitative 1.447 ng/mL (0.000-0.055) White Blood Count 10.1 x10^3/uL (4.0-11.0) Red Blood Count 5.16 x10^6/uL (4.30-5.70) Hemoglobin 16.1 g/dL (13.0-17.5) Hematocrit 46.9 % (39.0-53.0) Mean Corpuscular Volume 91 fL (79-100) Mean Corpuscular Hemoglobin 31 pg (25-35) Mean Corpuscular Hemoglobin Concent 34 g/dL (31-37) Red Cell Distribution Width 13.1 % (11.5-14.5) Platelet Count 218 x10^3/uL (140-400) Neutrophils (%) (Auto) 79 % (31-73) Lymphocytes (%) (Auto) 13 % (24-48) Monocytes (%) (Auto) 8 % (0-9) Eosinophils (%) (Auto) 0 % (0-3) Basophils (%) (Auto) 0 % (0-3) Neutrophils # (Auto) 8.0 x10^3/uL (1.8-7.7) Lymphocytes # (Auto) 1.3 x10^3/uL (1.0-4.8) Monocytes # (Auto) 0.8 x10^3/uL (0.0-1.1) Eosinophils # (Auto) 0.0 x10^3/uL (0.0-0.7) Basophils # (Auto) 0.0 x10^3/uL (0.0-0.2) Sodium Level 137 mmol/L (136-145) Potassium Level 3.9 mmol/L (3.5-5.1) Chloride Level 100 mmol/L (98-107) Carbon Dioxide Level 26 mmol/L (21-32) Anion Gap 11 (6-14) Blood Urea Nitrogen 21 mg/dL (8-26) Creatinine 0.8 mg/dL (0.7-1.3) Estimated GFR (Cockcroft-Gault) 94.5 BUN/Creatinine Ratio 26 (6-20) Glucose Level 119 mg/dL (70-99) Calcium Level 8.0 mg/dL (8.5-10.1) Magnesium Level 2.3 mg/dL (1.8-2.4) Total Bilirubin 1.0 mg/dL (0.2-1.0) Aspartate Amino Transf (AST/SGOT) 80 U/L (15-37) Alanine Aminotransferase (ALT/SGPT) 47 U/L (16-63) Alkaline Phosphatase 93 U/L (46-116) Total Protein 6.5 g/dL (6.4-8.2) Albumin 2.4 g/dL (3.4-5.0) Albumin/Globulin Ratio 0.6 (1.0-1.7) Triglycerides Level 212 mg/dL (0-150) Cholesterol Level 162 mg/dL (0-200) LDL Cholesterol, Calculated 100 mg/dL (0-100) VLDL Cholesterol, Calculated 42 mg/dL (0-40) Non-HDL Cholesterol Calculated 142 mg/dL (0-129) HDL Cholesterol 20 mg/dL (40-60) Cholesterol/HDL Ratio 8.1 Procalcitonin 4.22 ng/mL (0.00-0.10) O2 Saturation 95 % (92-99) Arterial Blood pH 7.45 (7.35-7.45) Arterial Blood pCO2 at Patient Temp 39 mmHg (35-46) Arterial Blood pO2 at Patient Temp 74 mmHg (65-108) Arterial Blood HCO3 26 mmol/L (21-28) Arterial Blood Base Excess 2 mmol/L (-3-3) FiO2 100% bipap Test 03/18/20 15:10 03/18/20 17:34 03/19/20 05:00 03/19/20 08:00 Heparin Anti-Xa Act, Unfractionated 0.42 IU/mL (0.30-0.70) Glucose (Fingerstick) 143 mg/dL (70-99) White Blood Count 8.8 x10^3/uL (4.0-11.0) Red Blood Count 4.82 x10^6/uL (4.30-5.70) Hemoglobin 14.9 g/dL (13.0-17.5) Hematocrit 43.6 % (39.0-53.0) Mean Corpuscular Volume 91 fL (79-100) Mean Corpuscular Hemoglobin 31 pg (25-35) Mean Corpuscular Hemoglobin Concent 34 g/dL (31-37) Red Cell Distribution Width 13.0 % (11.5-14.5) Platelet Count 254 x10^3/uL (140-400) Neutrophils (%) (Auto) 81 % (31-73) Lymphocytes (%) (Auto) 8 % (24-48) Monocytes (%) (Auto) 11 % (0-9) Eosinophils (%) (Auto) 0 % (0-3) Basophils (%) (Auto) 0 % (0-3) Neutrophils # (Auto) 7.1 x10^3/uL (1.8-7.7) Lymphocytes # (Auto) 0.7 x10^3/uL (1.0-4.8) Monocytes # (Auto) 0.9 x10^3/uL (0.0-1.1) Eosinophils # (Auto) 0.0 x10^3/uL (0.0-0.7) Basophils # (Auto) 0.0 x10^3/uL (0.0-0.2) Sodium Level 136 mmol/L (136-145) Potassium Level 3.5 mmol/L (3.5-5.1) Chloride Level 100 mmol/L (98-107) Carbon Dioxide Level 29 mmol/L (21-32) Anion Gap 7 (6-14) Blood Urea Nitrogen 23 mg/dL (8-26) Creatinine 0.9 mg/dL (0.7-1.3) Estimated GFR (Cockcroft-Gault) 82.5 Glucose Level 139 mg/dL (70-99) Calcium Level 8.1 mg/dL (8.5-10.1) O2 Saturation 89 % (92-99) Arterial Blood pH 7.49 (7.35-7.45) Arterial Blood pCO2 at Patient Temp 36 mmHg (35-46) Arterial Blood pO2 at Patient Temp 51 mmHg (65-108) Arterial Blood HCO3 27 mmol/L (21-28) Arterial Blood Base Excess 4 mmol/L (-3-3) FiO2 100/vapo+nrb Laboratory Tests Test 03/18/20 15:10 03/18/20 17:34 03/19/20 05:00 03/19/20 08:00 Heparin Anti-Xa Act, Unfractionated 0.42 IU/mL (0.30-0.70) Glucose (Fingerstick) 143 mg/dL (70-99) White Blood Count 8.8 x10^3/uL (4.0-11.0) Red Blood Count 4.82 x10^6/uL (4.30-5.70) Hemoglobin 14.9 g/dL (13.0-17.5) Hematocrit 43.6 % (39.0-53.0) Mean Corpuscular Volume 91 fL (79-100) Mean Corpuscular Hemoglobin 31 pg (25-35) Mean Corpuscular Hemoglobin Concent 34 g/dL (31-37) Red Cell Distribution Width 13.0 % (11.5-14.5) Platelet Count 254 x10^3/uL (140-400) Neutrophils (%) (Auto) 81 % (31-73) Lymphocytes (%) (Auto) 8 % (24-48) Monocytes (%) (Auto) 11 % (0-9) Eosinophils (%) (Auto) 0 % (0-3) Basophils (%) (Auto) 0 % (0-3) Neutrophils # (Auto) 7.1 x10^3/uL (1.8-7.7) Lymphocytes # (Auto) 0.7 x10^3/uL (1.0-4.8) Monocytes # (Auto) 0.9 x10^3/uL (0.0-1.1) Eosinophils # (Auto) 0.0 x10^3/uL (0.0-0.7) Basophils # (Auto) 0.0 x10^3/uL (0.0-0.2) Sodium Level 136 mmol/L (136-145) Potassium Level 3.5 mmol/L (3.5-5.1) Chloride Level 100 mmol/L (98-107) Carbon Dioxide Level 29 mmol/L (21-32) Anion Gap 7 (6-14) Blood Urea Nitrogen 23 mg/dL (8-26) Creatinine 0.9 mg/dL (0.7-1.3) Estimated GFR (Cockcroft-Gault) 82.5 Glucose Level 139 mg/dL (70-99) Calcium Level 8.1 mg/dL (8.5-10.1) O2 Saturation 89 % (92-99) Arterial Blood pH 7.49 (7.35-7.45) Arterial Blood pCO2 at Patient Temp 36 mmHg (35-46) Arterial Blood pO2 at Patient Temp 51 mmHg (65-108) Arterial Blood HCO3 27 mmol/L (21-28) Arterial Blood Base Excess 4 mmol/L (-3-3) FiO2 100/vapo+nrb Comments CXR IMPRESSION: Stable diffuse infiltrate superimposed on chronic interstitial changes. Impression . IMPRESSION: 1. Acute hypoxic respiratory failure, requiring 100% FiO2 with BiPAP. Main etiology is COVID-19 viral pneumonia/ ARDS/ALI. He also has AFib and possibility of diastolic congestive heart failure is in the differential diagnosis; 2. [id number] myocardial infarction 3. History of alcoholism. 4. Moderate to severe protein-calorie malnutrition. 5. Abnormal troponin with non-ST myocardial infarction. 6. COVID- positive Plan . RECOMMENDATIONS: Continue Supplemental oxygen, vapotherm 100 % and 40 liters, place back on BIPAP 100% Monitor respiratory status and need for intubation COVID-19 positive Continue full 10 day course of steroids Continue full course of remdesivir Continue abx, doxy and rocpehin Follow cardiology recs start PPN for nutritional support DVT/GI PPX D/W RN and RT IRVIN STOUT MD Mar 19, 2020 09:26
[2020-03-19] MEDS: AMINO AC 3%/ELECTROLYTE/GLYCER 1,000 ML IV SCH ×2 (11:05→23:54)
[2020-03-19] MEDS: cefTRIAXone IV Push 1 GM VIAL. IVP SCH (11:05)
[2020-03-19] MEDS: ENOXAPARIN 40 MG/0.4 ML SYRINGE. SQ SCH ×2 (11:05→20:55)
[2020-03-19 12:36] LABS: MAGNESIUM 2.3 mg/dL (1.8-2.4)
[2020-03-19] MEDS: REMDESIVIR 100mg in NORMAL SALINE 250ML X 4 DAYS IV SCH (13:14)
[2020-03-19] MEDS ORDERED: IV NORMAL SALINE 500ML BAG 500 ML IV PRN (13:30)
[2020-03-19] MEDS ORDERED: ATROPINE 0.5 MG/5 ML DISP.SYRINGE. IV PRN (13:30)
[2020-03-19] MEDS: DEXMEDETOMIDINE 400 MCG in IV NORMAL SALINE 100ML 96 ML IV PRN (13:46)
[2020-03-19] MEDS: ATORVASTATIN CALCIUM 10 MG TABLET. PO SCH (20:55)
[2020-03-19] MEDS: LACTOBACILLUS RHAMNOSUS GG 1 CAPSULE. PO SCH (20:55)
[2020-03-19] MEDS: guaiFENesin DM 600/30MG 1 TAB TAB.ER.12H PO SCH (22:07)
[2020-03-20] VITALS (24 sets, daily range): BP systolic 96–115; BP diastolic 60–94
--- NOTE | 2020-03-20 00:13 | NUR ---
Pt complained of increased coughing this shift, which caused the pts oxygen saturation to drop to 82-85% even while on Bipap with 100% FiO2. Pt requested PRN cough medication. Call placed to Dr. Isbell. Received order for Mucinex DM BID. Order implemented; pt stated this was somewhat effective. Will pass on and continue to monitor.
[2020-03-20 05:37] LABS: CALCIUM 8.4 mg/dL (8.5-10.1); CREATININE 0.8 mg/dL (0.7-1.3); GFR 94.5; POTASSIUM 3.9 mmol/L (3.5-5.1)
[2020-03-20 05:48] LABS: BASO % 0 % (0-3); EOS % 0 % (0-3); HEMATOCRIT 43.9 % (39.0-53.0); LYMPH # 0.8 x10^3/uL (1.0-4.8); LYMPH % 7 % (24-48); MEAN CORPUSCULAR HEMOGLOBIN 31 pg (25-35); MEAN CORPUSCULAR HGB CONC 34 g/dL (31-37); MEAN CORPUSCULAR VOLUME 91 fL (79-100); MONO # 1.1 x10^3/uL (0.0-1.1); MONO % 10 % (0-9); NEUT # 9.7 x10^3/uL (1.8-7.7); NEUT % 84 % (31-73); PLATELET COUNT 260 x10^3/uL (140-400); RED BLOOD COUNT 4.85 x10^6/uL (4.30-5.70); RED CELL DISTRIBUTION WIDTH 12.8 % (11.5-14.5); WHITE BLOOD COUNT 11.5 x10^3/uL (4.0-11.0)
[2020-03-20] MEDS: ASCORBIC ACID 500 MG TABLET PO SCH ×4 (06:00→23:52)
[2020-03-20] MEDS: DEXMEDETOMIDINE 400 MCG in IV NORMAL SALINE 100ML 96 ML IV PRN (06:23)
[2020-03-20] MEDS: INSULIN LISPRO 300 UNITS/3 ML VIAL. SQ SCH ×3 (07:13→16:59)
[2020-03-20] MEDS: ENOXAPARIN 40 MG/0.4 ML SYRINGE. SQ SCH ×2 (07:22→20:38)
[2020-03-20] MEDS: guaiFENesin DM 600/30MG 1 TAB TAB.ER.12H PO SCH ×2 (07:23→20:38)
[2020-03-20] MEDS: LACTOBACILLUS RHAMNOSUS GG 1 CAPSULE. PO SCH ×2 (07:23→20:38)
[2020-03-20] MEDS: ASPIRIN ENTERIC COATED 81 MG TABLET.DR. PO SCH (07:23)
[2020-03-20] MEDS: DEXAMETHASONE SOD PHOS 4 MG/ML VIAL IVP SCH (07:23)
[2020-03-20] MEDS: CHOLECALCIFEROL (VITAMIN D3) 5,000 UNIT CAPSULE PO SCH (07:23)
[2020-03-20] MEDS: DOXYCYCLINE HYCLATE 100 MG in IV DEXTROSE 5% 100ML 100 ML IV SCH ×2 (07:23→20:38)
[2020-03-20 08:03] LABS: BASE EXCESS ABG 3 mmol/L (-3-3); HCO3 ABG 27 mmol/L (21-28); PCO2 ABG 36 mmHg (35-46); PO2 ABG 63 mmHg (65-108); SAT O2 ABG 93 % (92-99)
[2020-03-20 08:22] LABS: FIO2 ABG 100/BIPAP
--- NOTE | 2020-03-20 09:55 | PDOC ---
PULMONARY PROGRESS NOTES DATE: 03/20/20 TIME: 09:51 Subjective Pt. in 100% BIPAP afebrile no overnight concerns Vitals Vital Signs Date Time Temp Pulse Resp B/P (MAP) Pulse Ox O2 Delivery O2 Flow Rate FiO2 03/20/20 09:00 54 20 103/71 (82) 92 BiPAP/CPAP 03/20/20 08:00 96.7 40.0 96.7 ROS: No Nausea, No Chest Pain, No Abdominal Pain, No Increase Cough General: Alert Lungs: Clear Cardiovascular: S1 Abdomen: Soft, Non-tender Neuro Exam: Alert Extremities: No Edema Skin: Warm Labs Laboratory Tests Test 03/18/20 15:10 03/18/20 17:34 03/19/20 05:00 03/19/20 08:00 Heparin Anti-Xa Act, Unfractionated 0.42 IU/mL (0.30-0.70) Glucose (Fingerstick) 143 mg/dL (70-99) White Blood Count 8.8 x10^3/uL (4.0-11.0) Red Blood Count 4.82 x10^6/uL (4.30-5.70) Hemoglobin 14.9 g/dL (13.0-17.5) Hematocrit 43.6 % (39.0-53.0) Mean Corpuscular Volume 91 fL (79-100) Mean Corpuscular Hemoglobin 31 pg (25-35) Mean Corpuscular Hemoglobin Concent 34 g/dL (31-37) Red Cell Distribution Width 13.0 % (11.5-14.5) Platelet Count 254 x10^3/uL (140-400) Neutrophils (%) (Auto) 81 % (31-73) Lymphocytes (%) (Auto) 8 % (24-48) Monocytes (%) (Auto) 11 % (0-9) Eosinophils (%) (Auto) 0 % (0-3) Basophils (%) (Auto) 0 % (0-3) Neutrophils # (Auto) 7.1 x10^3/uL (1.8-7.7) Lymphocytes # (Auto) 0.7 x10^3/uL (1.0-4.8) Monocytes # (Auto) 0.9 x10^3/uL (0.0-1.1) Eosinophils # (Auto) 0.0 x10^3/uL (0.0-0.7) Basophils # (Auto) 0.0 x10^3/uL (0.0-0.2) Sodium Level 136 mmol/L (136-145) Potassium Level 3.5 mmol/L (3.5-5.1) Chloride Level 100 mmol/L (98-107) Carbon Dioxide Level 29 mmol/L (21-32) Anion Gap 7 (6-14) Blood Urea Nitrogen 23 mg/dL (8-26) Creatinine 0.9 mg/dL (0.7-1.3) Estimated GFR (Cockcroft-Gault) 82.5 Glucose Level 139 mg/dL (70-99) Calcium Level 8.1 mg/dL (8.5-10.1) O2 Saturation 89 % (92-99) Arterial Blood pH 7.49 (7.35-7.45) Arterial Blood pCO2 at Patient Temp 36 mmHg (35-46) Arterial Blood pO2 at Patient Temp 51 mmHg (65-108) Arterial Blood HCO3 27 mmol/L (21-28) Arterial Blood Base Excess 4 mmol/L (-3-3) FiO2 100/vapo+nrb Test 03/19/20 11:00 03/20/20 05:00 03/20/20 07:50 D-Dimer (Nadia) 0.64 ug/mlFEU (0.00-0.50) Magnesium Level 2.3 mg/dL (1.8-2.4) Ferritin 2341 ng/mL (26-388) Lactate Dehydrogenase 576 U/L (85-227) Creatine Kinase 450 U/L (39-308) CV-Dnq-L-Type Natriuretic Peptide 77 pg/mL (0-124) White Blood Count 11.5 x10^3/uL (4.0-11.0) Red Blood Count 4.85 x10^6/uL (4.30-5.70) Hemoglobin 15.0 g/dL (13.0-17.5) Hematocrit 43.9 % (39.0-53.0) Mean Corpuscular Volume 91 fL (79-100) Mean Corpuscular Hemoglobin 31 pg (25-35) Mean Corpuscular Hemoglobin Concent 34 g/dL (31-37) Red Cell Distribution Width 12.8 % (11.5-14.5) Platelet Count 260 x10^3/uL (140-400) Neutrophils (%) (Auto) 84 % (31-73) Lymphocytes (%) (Auto) 7 % (24-48) Monocytes (%) (Auto) 10 % (0-9) Eosinophils (%) (Auto) 0 % (0-3) Basophils (%) (Auto) 0 % (0-3) Neutrophils # (Auto) 9.7 x10^3/uL (1.8-7.7) Lymphocytes # (Auto) 0.8 x10^3/uL (1.0-4.8) Monocytes # (Auto) 1.1 x10^3/uL (0.0-1.1) Eosinophils # (Auto) 0.0 x10^3/uL (0.0-0.7) Basophils # (Auto) 0.0 x10^3/uL (0.0-0.2) Sodium Level 134 mmol/L (136-145) Potassium Level 3.9 mmol/L (3.5-5.1) Chloride Level 102 mmol/L (98-107) Carbon Dioxide Level 24 mmol/L (21-32) Anion Gap 8 (6-14) Blood Urea Nitrogen 27 mg/dL (8-26) Creatinine 0.8 mg/dL (0.7-1.3) Estimated GFR (Cockcroft-Gault) 94.5 Glucose Level 154 mg/dL (70-99) Calcium Level 8.4 mg/dL (8.5-10.1) O2 Saturation 93 % (92-99) Arterial Blood pH 7.48 (7.35-7.45) Arterial Blood pCO2 at Patient Temp 36 mmHg (35-46) Arterial Blood pO2 at Patient Temp 63 mmHg (65-108) Arterial Blood HCO3 27 mmol/L (21-28) Arterial Blood Base Excess 3 mmol/L (-3-3) FiO2 100/bipap Laboratory Tests Test 03/19/20 11:00 03/20/20 05:00 03/20/20 07:50 D-Dimer (Nadia) 0.64 ug/mlFEU (0.00-0.50) Magnesium Level 2.3 mg/dL (1.8-2.4) Ferritin 2341 ng/mL (26-388) Lactate Dehydrogenase 576 U/L (85-227) Creatine Kinase 450 U/L (39-308) ZH-Kjq-F-Type Natriuretic Peptide 77 pg/mL (0-124) White Blood Count 11.5 x10^3/uL (4.0-11.0) Red Blood Count 4.85 x10^6/uL (4.30-5.70) Hemoglobin 15.0 g/dL (13.0-17.5) Hematocrit 43.9 % (39.0-53.0) Mean Corpuscular Volume 91 fL (79-100) Mean Corpuscular Hemoglobin 31 pg (25-35) Mean Corpuscular Hemoglobin Concent 34 g/dL (31-37) Red Cell Distribution Width 12.8 % (11.5-14.5) Platelet Count 260 x10^3/uL (140-400) Neutrophils (%) (Auto) 84 % (31-73) Lymphocytes (%) (Auto) 7 % (24-48) Monocytes (%) (Auto) 10 % (0-9) Eosinophils (%) (Auto) 0 % (0-3) Basophils (%) (Auto) 0 % (0-3) Neutrophils # (Auto) 9.7 x10^3/uL (1.8-7.7) Lymphocytes # (Auto) 0.8 x10^3/uL (1.0-4.8) Monocytes # (Auto) 1.1 x10^3/uL (0.0-1.1) Eosinophils # (Auto) 0.0 x10^3/uL (0.0-0.7) Basophils # (Auto) 0.0 x10^3/uL (0.0-0.2) Sodium Level 134 mmol/L (136-145) Potassium Level 3.9 mmol/L (3.5-5.1) Chloride Level 102 mmol/L (98-107) Carbon Dioxide Level 24 mmol/L (21-32) Anion Gap 8 (6-14) Blood Urea Nitrogen 27 mg/dL (8-26) Creatinine 0.8 mg/dL (0.7-1.3) Estimated GFR (Cockcroft-Gault) 94.5 Glucose Level 154 mg/dL (70-99) Calcium Level 8.4 mg/dL (8.5-10.1) O2 Saturation 93 % (92-99) Arterial Blood pH 7.48 (7.35-7.45) Arterial Blood pCO2 at Patient Temp 36 mmHg (35-46) Arterial Blood pO2 at Patient Temp 63 mmHg (65-108) Arterial Blood HCO3 27 mmol/L (21-28) Arterial Blood Base Excess 3 mmol/L (-3-3) FiO2 100/bipap Comments CXR IMPRESSION: Stable diffuse infiltrate superimposed on chronic interstitial changes. Impression . IMPRESSION: 1. Acute hypoxic respiratory failure, requiring 100% FiO2 with BiPAP. Main etiology is COVID-19 viral pneumonia/ ARDS/ALI. He also has AFib and possibility of diastolic congestive heart failure is in the differential diagnosis; 2. Spx-IQ-myhtfeybt myocardial infarction 3. History of alcoholism. 4. Moderate to severe protein-calorie malnutrition. 5. Abnormal troponin with non-ST myocardial infarction. 6. COVID- positive Plan . RECOMMENDATIONS: Continue Supplemental oxygen, with BIPAP 100% Monitor respiratory status and need for intubation COVID-19 positive Continue full 10 day course of steroids Continue full course of remdesivir Continue abx, doxy and rocpehin Follow cardiology recs Continue PPN for nutritional support DVT/GI PPX D/W RN and RT Critical Care Time [id number] IRVIN CHIN MD Mar 20, 2020 09:55
--- NOTE | 2020-03-20 10:00 | PDOC ---
[employer] PROGRESS NOTE Date of Service DOS: DATE: 03/20/20 TIME: 09:59 Chief Complaint Chief Complaint NSTEMI Acute hypoxic respiratory failure New onset atrial fibrillation COVID-19 PUI Malnutrition Plan: Consultations placed to cardiology Continue heparin drip COVID-19 pending; Patient is currently breathing on BiPAP Anticipate ischemic cardiac work-up when his COVID-19 results are negative Chest x-ray obtained at [facility] showed multifocal ill-defined opacities bilaterally, concerning for viral pneumonia. If COVID-19 positive we will treat patient with steroids and remdesivir FEN - Cardiac diet PPX - Heparin FULL CODE History of Present Illness History of Present Illness Patient is a 74-year-old male who presents as a transfer from [facility] for altered mental status and NSTEMI. Apparently he did not present to work today and police were contacted to perform a wellness visit. Upon arrival he was found in his recliner surrounded by several bottles of beer. Patient reportedly stated to EMS that he had not been feeling well for the past 24 hours, but did not report any symptoms besides generalized fatigue. He denies any fever, chest pain, shortness of breath, cough, sick contacts, or known COVID-19 exposure. His initial troponin at [facility] was noted to be 0.933, with repeat 1.475. He was placed on BiPAP due to acute respiratory failure, and heparin drip. He was transferred to [facility] for cardiology consultation and further medical management. Upon arrival to [facility] several runs of A. fib were noted on telemetry, and according to patient's family they deny any known knowledge of history of atrial fibrillation. 03/20: Seen in COVID-19 ICU. Currently breathing on BiPAP, FiO2 100%. He is afebrile, denies chest pain. No other complaints today. Continue with steroids, antibiotics, remdesivir day 3/5. 03/19: Moved into the ICU overnight due to concern of worsening shortness of breath. Currently breathing on 40 L Vapotherm. He is afebrile, denies chest pain. Continue with steroids, antibiotics, remdesivir day 2/5. Discussed with RN. 03/18: Patient seen and evaluated. Lab results taken at [facility] showing he is COVID-19 positive. Afebrile, breathing on BiPAP at FiO2 100%. ABG obtained today shows pH 7.45, PO2 74, PCO2 39. WBC 10.1. Pro Tani elevated at 4.22. Repeat chest x-ray still stable bilateral diffuse infiltrates. Provide antibiotic coverage with Rocephin and doxycycline. Pulmonology has been consulted due to respiratory distress on BiPAP. Will initiate steroids, remde sivir. Continue supportive care. Vitals/I&O Vitals/I&O: Vital Signs Date Time Temp Pulse Resp B/P (MAP) Pulse Ox O2 Delivery O2 Flow Rate FiO2 03/20/20 09:00 54 20 103/71 (82) 92 BiPAP/CPAP 03/20/20 08:00 96.7 40.0 96.7 I & O 03/19/20 03/19/20 03/20/20 15:00 23:00 07:00 Intake Total 70 ml 1103 ml 1227 ml Output Total 450 ml 315 ml 575 ml Balance -380 ml 788 ml 652 ml Physical Exam General: Alert, Oriented X3, Cooperative, No acute distress Heart: Regular rate (SR), Normal S1, Normal S2, No murmurs Lungs: Clear Abdomen: Soft Extremities: No clubbing, No cyanosis, No edema Skin: No rashes, No breakdown Labs Labs: Laboratory Tests Test 03/19/20 11:00 03/20/20 05:00 03/20/20 07:50 D-Dimer (Nadia) 0.64 ug/mlFEU (0.00-0.50) Magnesium Level 2.3 mg/dL (1.8-2.4) Ferritin 2341 ng/mL (26-388) Lactate Dehydrogenase 576 U/L (85-227) Creatine Kinase 450 U/L (39-308) IX-Cpp-M-Type Natriuretic Peptide 77 pg/mL (0-124) White Blood Count 11.5 x10^3/uL (4.0-11.0) Red Blood Count 4.85 x10^6/uL (4.30-5.70) Hemoglobin 15.0 g/dL (13.0-17.5) Hematocrit 43.9 % (39.0-53.0) Mean Corpuscular Volume 91 fL (79-100) Mean Corpuscular Hemoglobin 31 pg (25-35) Mean Corpuscular Hemoglobin Concent 34 g/dL (31-37) Red Cell Distribution Width 12.8 % (11.5-14.5) Platelet Count 260 x10^3/uL (140-400) Neutrophils (%) (Auto) 84 % (31-73) Lymphocytes (%) (Auto) 7 % (24-48) Monocytes (%) (Auto) 10 % (0-9) Eosinophils (%) (Auto) 0 % (0-3) Basophils (%) (Auto) 0 % (0-3) Neutrophils # (Auto) 9.7 x10^3/uL (1.8-7.7) Lymphocytes # (Auto) 0.8 x10^3/uL (1.0-4.8) Monocytes # (Auto) 1.1 x10^3/uL (0.0-1.1) Eosinophils # (Auto) 0.0 x10^3/uL (0.0-0.7) Basophils # (Auto) 0.0 x10^3/uL (0.0-0.2) Sodium Level 134 mmol/L (136-145) Potassium Level 3.9 mmol/L (3.5-5.1) Chloride Level 102 mmol/L (98-107) Carbon Dioxide Level 24 mmol/L (21-32) Anion Gap 8 (6-14) Blood Urea Nitrogen 27 mg/dL (8-26) Creatinine 0.8 mg/dL (0.7-1.3) Estimated GFR (Cockcroft-Gault) 94.5 Glucose Level 154 mg/dL (70-99) Calcium Level 8.4 mg/dL (8.5-10.1) O2 Saturation 93 % (92-99) Arterial Blood pH 7.48 (7.35-7.45) Arterial Blood pCO2 at Patient Temp 36 mmHg (35-46) Arterial Blood pO2 at Patient Temp 63 mmHg (65-108) Arterial Blood HCO3 27 mmol/L (21-28) Arterial Blood Base Excess 3 mmol/L (-3-3) FiO2 100/bipap Comment Review of Relevant I have reviewed the following items ángela (where applicable) has been applied. Medications: Current Medications Medications (Trade) Dose Ordered Sig/Brissa Route PRN Reason Start Time Stop Time Status Last Admin Dose Admin Remdesivir 100 mg/ Sodium Chloride 230 ml @ 460 mls/hr Q24H IV 03/19/20 13:00 03/22/20 13:29 03/19/20 13:14 Dexmedetomidine HCl 400 mcg/ Sodium Chloride 100 ml @ 4.46 mls/hr CONT PRN IV PER PROTOCOL 03/19/20 13:30 03/20/20 06:23 Lactobacillus Rhamnosus (Culturelle) 1 cap BID PO 03/19/20 21:00 03/20/20 07:23 Guaifenesin (MUCINEX ER with DM) 1 tab BID PO 03/19/20 22:00 03/20/20 07:23 Justifications for Admission General Conditions Poss tachycardia?: No Altered mental status?: Yes Other Justification NSTEMI, new onset A. fib, respiratory failure with hypoxia RICK FLOREZ MD Mar 20, 2020 10:00
[2020-03-20] MEDS: cefTRIAXone IV Push 1 GM VIAL. IVP SCH (10:37)
[2020-03-20] MEDS: AMINO AC 3%/ELECTROLYTE/GLYCER 1,000 ML IV SCH (11:10)
[2020-03-20] MEDS: REMDESIVIR 100mg in NORMAL SALINE 250ML X 4 DAYS IV SCH (13:16)
[2020-03-20] MEDS: ATORVASTATIN CALCIUM 10 MG TABLET. PO SCH (20:38)
[2020-03-20] MEDS ORDERED: BENZONATATE 100 MG CAPSULE. PO PRN (23:45)
[2020-03-20] MEDS: guaiFENesin ORAL 200 MG/10 ML LIQUID. PO PRN (23:52)
[2020-03-21] VITALS (24 sets, daily range): BP systolic 104–162; BP diastolic 64–87
[2020-03-21] MEDS: AMINO AC 3%/ELECTROLYTE/GLYCER 1,000 ML IV SCH ×3 (00:52→23:00)
[2020-03-21] MEDS: DEXMEDETOMIDINE 400 MCG in IV NORMAL SALINE 100ML 96 ML IV PRN ×4 (02:28→20:01)
--- NOTE | 2020-03-21 04:55 | NUR ---
Pt once again complained of increased cough this shift. Pt stated intermittent coughing was "causing pain" to his throat and chest. Pts oxygen saturation also appeared to decrease on the monitor during coughing episodes. Pt requested a cough syrup or some equivalent. Call placed to Dr. Head. Received orders for PRN Robitussin and PRN Tessalon Perles. Orders entered into system. PRN Robitussin administered this shift. No further complaints of coughing since administration. Will pass on and continue to monitor.
[2020-03-21] MEDS: ASCORBIC ACID 500 MG TABLET PO SCH ×2 (06:00→12:00)
[2020-03-21] MEDS: ASPIRIN ENTERIC COATED 81 MG TABLET.DR. PO SCH (07:56)
[2020-03-21] MEDS: guaiFENesin DM 600/30MG 1 TAB TAB.ER.12H PO SCH ×2 (07:56→21:00)
[2020-03-21] MEDS: CHOLECALCIFEROL (VITAMIN D3) 5,000 UNIT CAPSULE PO SCH (07:56)
[2020-03-21] MEDS: LACTOBACILLUS RHAMNOSUS GG 1 CAPSULE. PO SCH ×2 (07:56→20:22)
[2020-03-21] MEDS: DOXYCYCLINE HYCLATE 100 MG in IV DEXTROSE 5% 100ML 100 ML IV SCH ×2 (07:58→21:16)
[2020-03-21] MEDS: guaiFENesin ORAL 200 MG/10 ML LIQUID. PO PRN ×2 (07:58→12:53)
[2020-03-21] MEDS: DEXAMETHASONE SOD PHOS 4 MG/ML VIAL IVP SCH (07:58)
[2020-03-21] MEDS: ENOXAPARIN 40 MG/0.4 ML SYRINGE. SQ SCH ×2 (07:59→21:17)
[2020-03-21] MEDS: INSULIN LISPRO 300 UNITS/3 ML VIAL. SQ SCH (08:00)
--- NOTE | 2020-03-21 08:59 | RAD ---
XR CHEST 1V INDICATION: Reason: resp. failure ICU#114 / Spl. Instructions: / History: . COMPARISON STUDY: 03/18/2020. FINDINGS: Lungs: Normal lung volume. Slightly improved bilateral perihilar and basilar opacities. Pleura: No pleural effusion or pneumothorax. Heart and Mediastinum: Stable cardiomediastinal silhouette and great vessels. IMPRESSION: Slightly improved bilateral perihilar and basilar opacities. Electronically signed by: Anand Medina MD (03/21/2020 8:42 AM) [id number]
[2020-03-21 09:27] LABS: BASO % 0 % (0-3); EOS % 0 % (0-3); HEMOGLOBIN 15.9 g/dL (13.0-17.5); LYMPH # 0.7 x10^3/uL (1.0-4.8); LYMPH % 4 % (24-48); MEAN CORPUSCULAR HEMOGLOBIN 31 pg (25-35); MEAN CORPUSCULAR HGB CONC 35 g/dL (31-37); MEAN CORPUSCULAR VOLUME 91 fL (79-100); MONO # 1.4 x10^3/uL (0.0-1.1); MONO % 9 % (0-9); NEUT # 13.9 x10^3/uL (1.8-7.7); NEUT % 87 % (31-73); PLATELET COUNT 306 x10^3/uL (140-400); RED BLOOD COUNT 5.08 x10^6/uL (4.30-5.70); RED CELL DISTRIBUTION WIDTH 12.6 % (11.5-14.5)
[2020-03-21 09:34] LABS: CALCIUM 8.3 mg/dL (8.5-10.1); CREATININE 0.8 mg/dL (0.7-1.3); GFR 94.5; POTASSIUM 4.4 mmol/L (3.5-5.1)
--- NOTE | 2020-03-21 10:02 | PDOC ---
PULMONARY PROGRESS NOTES DATE: 03/21/20 TIME: 09:59 Subjective Pt. in 100% BIPAP afebrile no overnight concerns Vitals Vital Signs Date Time Temp Pulse Resp B/P (MAP) Pulse Ox O2 Delivery O2 Flow Rate FiO2 03/21/20 09:00 87 31 129/75 (93) 91 BiPAP/CPAP 03/21/20 08:00 98.3 98.3 03/20/20 18:06 40.0 Comments visual exam done due to COVID-19 on BIPAP, no resp distress no leg edema General: Alert Labs Laboratory Tests Test 03/19/20 11:00 03/20/20 05:00 03/20/20 07:50 03/21/20 09:00 D-Dimer (Nadia) 0.64 ug/mlFEU (0.00-0.50) Magnesium Level 2.3 mg/dL (1.8-2.4) Ferritin 2341 ng/mL (26-388) Lactate Dehydrogenase 576 U/L (85-227) Creatine Kinase 450 U/L (39-308) CV-Uzs-D-Type Natriuretic Peptide 77 pg/mL (0-124) 366 pg/mL (0-124) White Blood Count 11.5 x10^3/uL (4.0-11.0) 16.0 x10^3/uL (4.0-11.0) Red Blood Count 4.85 x10^6/uL (4.30-5.70) 5.08 x10^6/uL (4.30-5.70) Hemoglobin 15.0 g/dL (13.0-17.5) 15.9 g/dL (13.0-17.5) Hematocrit 43.9 % (39.0-53.0) 46.0 % (39.0-53.0) Mean Corpuscular Volume 91 fL (79-100) 91 fL (79-100) Mean Corpuscular Hemoglobin 31 pg (25-35) 31 pg (25-35) Mean Corpuscular Hemoglobin Concent 34 g/dL (31-37) 35 g/dL (31-37) Red Cell Distribution Width 12.8 % (11.5-14.5) 12.6 % (11.5-14.5) Platelet Count 260 x10^3/uL (140-400) 306 x10^3/uL (140-400) Neutrophils (%) (Auto) 84 % (31-73) 87 % (31-73) Lymphocytes (%) (Auto) 7 % (24-48) 4 % (24-48) Monocytes (%) (Auto) 10 % (0-9) 9 % (0-9) Eosinophils (%) (Auto) 0 % (0-3) 0 % (0-3) Basophils (%) (Auto) 0 % (0-3) 0 % (0-3) Neutrophils # (Auto) 9.7 x10^3/uL (1.8-7.7) 13.9 x10^3/uL (1.8-7.7) Lymphocytes # (Auto) 0.8 x10^3/uL (1.0-4.8) 0.7 x10^3/uL (1.0-4.8) Monocytes # (Auto) 1.1 x10^3/uL (0.0-1.1) 1.4 x10^3/uL (0.0-1.1) Eosinophils # (Auto) 0.0 x10^3/uL (0.0-0.7) 0.0 x10^3/uL (0.0-0.7) Basophils # (Auto) 0.0 x10^3/uL (0.0-0.2) 0.0 x10^3/uL (0.0-0.2) Sodium Level 134 mmol/L (136-145) 141 mmol/L (136-145) Potassium Level 3.9 mmol/L (3.5-5.1) 4.4 mmol/L (3.5-5.1) Chloride Level 102 mmol/L (98-107) 105 mmol/L (98-107) Carbon Dioxide Level 24 mmol/L (21-32) 27 mmol/L (21-32) Anion Gap 8 (6-14) 9 (6-14) Blood Urea Nitrogen 27 mg/dL (8-26) 27 mg/dL (8-26) Creatinine 0.8 mg/dL (0.7-1.3) 0.8 mg/dL (0.7-1.3) Estimated GFR (Cockcroft-Gault) 94.5 94.5 Glucose Level 154 mg/dL (70-99) 117 mg/dL (70-99) Calcium Level 8.4 mg/dL (8.5-10.1) 8.3 mg/dL (8.5-10.1) O2 Saturation 93 % (92-99) Arterial Blood pH 7.48 (7.35-7.45) Arterial Blood pCO2 at Patient Temp 36 mmHg (35-46) Arterial Blood pO2 at Patient Temp 63 mmHg (65-108) Arterial Blood HCO3 27 mmol/L (21-28) Arterial Blood Base Excess 3 mmol/L (-3-3) FiO2 100/bipap Laboratory Tests Test 03/21/20 09:00 White Blood Count 16.0 x10^3/uL (4.0-11.0) Red Blood Count 5.08 x10^6/uL (4.30-5.70) Hemoglobin 15.9 g/dL (13.0-17.5) Hematocrit 46.0 % (39.0-53.0) Mean Corpuscular Volume 91 fL (79-100) Mean Corpuscular Hemoglobin 31 pg (25-35) Mean Corpuscular Hemoglobin Concent 35 g/dL (31-37) Red Cell Distribution Width 12.6 % (11.5-14.5) Platelet Count 306 x10^3/uL (140-400) Neutrophils (%) (Auto) 87 % (31-73) Lymphocytes (%) (Auto) 4 % (24-48) Monocytes (%) (Auto) 9 % (0-9) Eosinophils (%) (Auto) 0 % (0-3) Basophils (%) (Auto) 0 % (0-3) Neutrophils # (Auto) 13.9 x10^3/uL (1.8-7.7) Lymphocytes # (Auto) 0.7 x10^3/uL (1.0-4.8) Monocytes # (Auto) 1.4 x10^3/uL (0.0-1.1) Eosinophils # (Auto) 0.0 x10^3/uL (0.0-0.7) Basophils # (Auto) 0.0 x10^3/uL (0.0-0.2) Sodium Level 141 mmol/L (136-145) Potassium Level 4.4 mmol/L (3.5-5.1) Chloride Level 105 mmol/L (98-107) Carbon Dioxide Level 27 mmol/L (21-32) Anion Gap 9 (6-14) Blood Urea Nitrogen 27 mg/dL (8-26) Creatinine 0.8 mg/dL (0.7-1.3) Estimated GFR (Cockcroft-Gault) 94.5 Glucose Level 117 mg/dL (70-99) Calcium Level 8.3 mg/dL (8.5-10.1) LG-Cqk-B-Type Natriuretic Peptide 366 pg/mL (0-124) Comments CXR 03/21 IMPRESSION: Stable diffuse interstitial infiltrates Impression . IMPRESSION: 1. Acute hypoxic respiratory failure, requiring 100% FiO2 with BiPAP. Main etiology is COVID-19 viral pneumonia/ ARDS/ALI. He also has AFib and possibility of superimposed diastolic congestive heart failure is in the differential diagnosis; 2. Czi-RP-hvvtcelhf myocardial infarction 3. History of alcoholism. 4. Moderate to severe protein-calorie malnutrition. 5. Abnormal troponin with non-ST myocardial infarction. 6. COVID- positive Plan . RECOMMENDATIONS: Continue Supplemental oxygen, with BIPAP 100% Monitor respiratory status and need for intubation COVID-19 positive Continue full 10 day course of steroids Continue full course of remdesivir Continue abx, doxy and rocpehin Follow cardiology recs Continue PPN for nutritional support DVT/GI PPX D/W RN and RT message left for dori Guerra Critical Care Time [id number] IRVIN CHIN MD Mar 21, 2020 10:02
--- NOTE | 2020-03-21 10:51 | NUR ---
SS following up with discharge planning. SS reviewed pt chart and discussed with pt RN. Pt is currently on BIPAP at 100%. COVID19 positive. Pt on IV Doxycycline, IV Rocephin, PPN, and IV Remdesivir. Not stable. Pt requesting his daughter, Mari Shrestha, , be Healthcare DPOA. Healthcare DPOA form completed and notarized. SS will continue to follow for discharge planning.
[2020-03-21] MEDS: cefTRIAXone IV Push 1 GM VIAL. IVP SCH (11:22)
--- NOTE | 2020-03-21 11:29 | PDOC ---
[employer] PROGRESS NOTE Date of Service DOS: DATE: 03/21/20 TIME: 11:26 Chief Complaint Chief Complaint NSTEMI COVID-19 Acute hypoxic respiratory failure New onset atrial fibrillation Malnutrition History of Present Illness History of Present Illness 03/21/2020 Patient seen and examined on the [place] [address] unit ICU He is on BiPAP with 100% oxygen Sedated with DEX Getting IV TPN On IV doxycycline Discussed with RN Chart reviewed He remains critically ill Patient is a 74-year-old male who presents as a transfer from [facility] for altered mental status and NSTEMI. Apparently he did not present to work today and police were contacted to perform a wellness visit. Upon arrival he was found in his recliner surrounded by several bottles of beer. Patient reportedly stated to EMS that he had not been feeling well for the past 24 hours, but did not report any symptoms besides generalized fatigue. He denies any fever, chest pain, shortness of breath, cough, sick contacts, or known COVID-19 exposure. His initial troponin at [facility] was noted to be 0.933, with repeat 1.475. He was placed on BiPAP due to acute respiratory failure, and heparin drip. He was transferred to [facility] for cardiology consultation and further medical management. Upon arrival to [facility] several runs of A. fib were noted on telemetry, and according to patient's family they deny any known knowledge of history of atrial fibrillation. 03/20: Seen in [place] [address] ICU. Currently breathing on BiPAP, FiO2 100%. He is afebrile, denies chest pain. No other complaints today. Continue with steroids, antibiotics, remdesivir day 3/5. 03/19: Moved into the ICU overnight due to concern of worsening shortness of breath. Currently breathing on 40 L Vapotherm. He is afebrile, denies chest pain. Continue with steroids, antibiotics, remdesivir day 2/5. Discussed with RN. 03/18: Patient seen and evaluated. Lab results taken at [facility] showing he is COVID-19 positive. Afebrile, breathing on BiPAP at FiO2 100%. ABG obtained today shows pH 7.45, PO2 74, PCO2 39. WBC 10.1. Pro Tani elevated at 4.22. Repeat chest x-ray still stable bilateral diffuse infiltrates. Provide antibiotic coverage with Rocephin and doxycycline. Pulmonology has been consulted due to respiratory distress on BiPAP. Will initiate steroids, remdesivir. Continue supportive care. Vitals/I&O Vitals/I&O: Vital Signs Date Time Temp Pulse Resp B/P (MAP) Pulse Ox O2 Delivery O2 Flow Rate FiO2 03/21/20 11:00 65 22 122/72 (89) 93 BiPAP/CPAP 03/21/20 08:00 98.3 98.3 03/20/20 18:06 40.0 I & O 03/20/20 03/20/20 03/21/20 15:00 23:00 07:00 Intake Total 650 ml 200 ml 2080 ml Output Total 810 ml 425 ml 550 ml Balance -160 ml -225 ml 1530 ml Physical Exam General: mild distress, Other (On BiPAP) Heart: Regular rate (SR), No murmurs, Other (Tachycardic) Lungs: Wheezing, Crackles Abdomen: Soft Extremities: No clubbing, No cyanosis, No edema Skin: No rashes, No breakdown Labs Labs: Laboratory Tests Test 03/21/20 09:00 White Blood Count 16.0 x10^3/uL (4.0-11.0) Red Blood Count 5.08 x10^6/uL (4.30-5.70) Hemoglobin 15.9 g/dL (13.0-17.5) Hematocrit 46.0 % (39.0-53.0) Mean Corpuscular Volume 91 fL (79-100) Mean Corpuscular Hemoglobin 31 pg (25-35) Mean Corpuscular Hemoglobin Concent 35 g/dL (31-37) Red Cell Distribution Width 12.6 % (11.5-14.5) Platelet Count 306 x10^3/uL (140-400) Neutrophils (%) (Auto) 87 % (31-73) Lymphocytes (%) (Auto) 4 % (24-48) Monocytes (%) (Auto) 9 % (0-9) Eosinophils (%) (Auto) 0 % (0-3) Basophils (%) (Auto) 0 % (0-3) Neutrophils # (Auto) 13.9 x10^3/uL (1.8-7.7) Lymphocytes # (Auto) 0.7 x10^3/uL (1.0-4.8) Monocytes # (Auto) 1.4 x10^3/uL (0.0-1.1) Eosinophils # (Auto) 0.0 x10^3/uL (0.0-0.7) Basophils # (Auto) 0.0 x10^3/uL (0.0-0.2) D-Dimer (Nadia) 3.60 ug/mlFEU (0.00-0.50) Sodium Level 141 mmol/L (136-145) Potassium Level 4.4 mmol/L (3.5-5.1) Chloride Level 105 mmol/L (98-107) Carbon Dioxide Level 27 mmol/L (21-32) Anion Gap 9 (6-14) Blood Urea Nitrogen 27 mg/dL (8-26) Creatinine 0.8 mg/dL (0.7-1.3) Estimated GFR (Cockcroft-Gault) 94.5 Glucose Level 117 mg/dL (70-99) Calcium Level 8.3 mg/dL (8.5-10.1) Magnesium Level 2.0 mg/dL (1.8-2.4) Ferritin 1571 ng/mL (26-388) Lactate Dehydrogenase 574 U/L (85-227) Creatine Kinase 100 U/L (39-308) OT-Ruq-R-Type Natriuretic Peptide 366 pg/mL (0-124) Assessment and Plan Assessmemt and Plan NSTEMI Acute hypoxic respiratory failure New onset atrial fibrillation COVID-19 PUI Malnutrition Plan: ICU monitoring Covid protocol Consultations placed to cardiology Continue heparin drip BiPAP Anticipate ischemic cardiac work-up when his COVID-19 results are negative Chest x-ray obtained at [facility] showed multifocal ill-defined opacities bilaterally, concerning for viral pneumonia. FEN - Cardiac diet PPX - Heparin FULL CODE Prognosis guarded Appreciate subspecialist input CC time 31-minute Comment Review of Relevant I have reviewed the following items ángela (where applicable) has been applied. Medications: Current Medications Medications (Trade) Dose Ordered Sig/Brissa Route PRN Reason Start Time Stop Time Status Last Admin Dose Admin Guaifenesin (Robitussin) 200 mg PRN Q6HRS PRN PO COUGH 03/20/20 23:45 03/21/20 07:58 Justifications for Admission General Conditions Poss tachycardia?: No Altered mental status?: Yes Other Justification NSTEMI, new onset A. fib, respiratory failure with hypoxia VAL WOOD III DO Mar 21, 2020 11:29
[2020-03-21 12:50] LABS: % BANDS 4 % (0-9); % LYMPHS 6 % (24-48); % MONOS 5 % (0-10); % SEGS 85 % (35-66); PLT ESTIMATE ADEQUATE (ADEQUATE)
--- NOTE | 2020-03-21 13:15 | PDOC ---
ANNA BOO ROLL ON WORKER 03/21/20 1315: CARDIO Progress Notes Date and Time Date of Service 03/21/20 Time of Evaluation 1310 Subjective Subjective: Other (on BiPAP) Vitals Vitals Vital Signs Date Time Temp Pulse Resp B/P (MAP) Pulse Ox O2 Delivery O2 Flow Rate FiO2 03/21/20 12:00 98.2 65 20 125/72 (89) 93 BiPAP/CPAP 98.2 03/20/20 18:06 40.0 Weight Weight [ ] Input and Output Intake and Output l Intake and Output 03/21/20 07:00 Intake Total 2930 ml Output Total 1785 ml Balance 1145 ml Intake Oral 700 ml IV Total 2230 ml Output Urine Total 1785 ml Laboratory Labs Laboratory Tests Test 03/21/20 09:00 White Blood Count 16.0 x10^3/uL (4.0-11.0) Red Blood Count 5.08 x10^6/uL (4.30-5.70) Hemoglobin 15.9 g/dL (13.0-17.5) Hematocrit 46.0 % (39.0-53.0) Mean Corpuscular Volume 91 fL (79-100) Mean Corpuscular Hemoglobin 31 pg (25-35) Mean Corpuscular Hemoglobin Concent 35 g/dL (31-37) Red Cell Distribution Width 12.6 % (11.5-14.5) Platelet Count 306 x10^3/uL (140-400) Neutrophils (%) (Auto) 87 % (31-73) Lymphocytes (%) (Auto) 4 % (24-48) Monocytes (%) (Auto) 9 % (0-9) Eosinophils (%) (Auto) 0 % (0-3) Basophils (%) (Auto) 0 % (0-3) Neutrophils # (Auto) 13.9 x10^3/uL (1.8-7.7) Lymphocytes # (Auto) 0.7 x10^3/uL (1.0-4.8) Monocytes # (Auto) 1.4 x10^3/uL (0.0-1.1) Eosinophils # (Auto) 0.0 x10^3/uL (0.0-0.7) Basophils # (Auto) 0.0 x10^3/uL (0.0-0.2) Segmented Neutrophils % 85 % (35-66) Band Neutrophils % 4 % (0-9) Lymphocytes % 6 % (24-48) Monocytes % 5 % (0-10) Platelet Estimate Adequate (ADEQUATE) D-Dimer (Nadia) 3.60 ug/mlFEU (0.00-0.50) Sodium Level 141 mmol/L (136-145) Potassium Level 4.4 mmol/L (3.5-5.1) Chloride Level 105 mmol/L (98-107) Carbon Dioxide Level 27 mmol/L (21-32) Anion Gap 9 (6-14) Blood Urea Nitrogen 27 mg/dL (8-26) Creatinine 0.8 mg/dL (0.7-1.3) Estimated GFR (Cockcroft-Gault) 94.5 Glucose Level 117 mg/dL (70-99) Calcium Level 8.3 mg/dL (8.5-10.1) Magnesium Level 2.0 mg/dL (1.8-2.4) Ferritin 1571 ng/mL (26-388) Lactate Dehydrogenase 574 U/L (85-227) Creatine Kinase 100 U/L (39-308) FL-Epx-N-Type Natriuretic Peptide 366 pg/mL (0-124) Physical Exam HEENT: Neck Supple W Full Motion Chest: Symmetric LUNGS: Other (BiPAP) Heart: RRR Abdomen: Other (nondistended ) Extremities: No Edema Neurology: alert, follow commands Assessment Assessment 1. Acute hypoxic respiratory failure with covid-19 pneumonia. Remains on BiPAP 2. NSTEMI: Peaked at 1.4 no acute EKG changes, suspect demand mediated with associated covid. CP free 3. Mild rhabdomyolysis; improved 4. Urinary retention 5. PAFIB; maintaining SR 6. Metabolic acidosis with dehydration: resolved Recommendations ASA BiPAP Support Ongoing lung optimization, treatment of COVID as per pulmonary TTE and outpt ischemic workup as an outpt pending course of hospitalization Supportive care Justicifation of Admission Dx: Justifications for Admission: Justification of Admission Dx: Yes Comments: Acute respiratory failure COVID PNA CANDELARIA DEJESUS MD 03/21/20 6735: CARDIO Progress Notes Assessment Assessment Agree with COMMISSIONED SECURITY OFFICER's assessment and plan. Acute hypoxic respiratory failure secondary to Covid pneumonia. Patient continues to need BiPAP. Continue treatment per pulmonary team. Non-STEMI most probably demand ischemia. Patient denied any chest pain. Plan for 2D echo and ischemic evaluation once he recovers from Covid, possibly as an outpatient. ANNA BOO APRN Mar 21, 2020 13:15 CANDELARIA DEJESUS MD Mar 21, 2020 17:34
[2020-03-21] MEDS: REMDESIVIR 100mg in NORMAL SALINE 250ML X 4 DAYS IV SCH (13:27)
[2020-03-21] MEDS: SALIVA STIMULANT AGENT 44ML SPRAY BOTTLE. PO PRN ×2 (16:11→17:36)
[2020-03-21] MEDS: MORPHINE SULFATE 4 MG/ML VIAL. IV PRN (19:20)
[2020-03-21] MEDS: ATORVASTATIN CALCIUM 10 MG TABLET. PO SCH (20:22)
[2020-03-22] VITALS (29 sets, daily range): BP systolic 56–178; BP diastolic 42–91
[2020-03-22] MEDS: MORPHINE SULFATE 4 MG/ML VIAL. IV PRN ×4 (00:15→09:02)
[2020-03-22] MEDS: DEXMEDETOMIDINE 400 MCG in IV NORMAL SALINE 100ML 96 ML IV PRN ×4 (01:26→19:38)
--- NOTE | 2020-03-22 04:30 | NUR ---
Pt has been restless, pulls off Bipap mask, stating "I can't breathe" several times this shift. Continuing to increase Precedex anxiety and give Morphine for air hunger. Notified RT staff that patient isn't tolerating Bipap mask despite medications. ABG obtained. RT staff reports that intubation is not needed at this time. Will continue to monitor/medicate.
[2020-03-22 04:49] LABS: BASE EXCESS ABG -5 mmol/L (-3-3); HCO3 ABG 20 mmol/L (21-28); PCO2 ABG 37 mmHg (35-46); PO2 ABG 52 mmHg (65-108); SAT O2 ABG 85 % (92-99)
[2020-03-22 05:16] LABS: FIO2 ABG 100
[2020-03-22 08:42] LABS: BASO % 0 % (0-3); EOS % 0 % (0-3); HEMATOCRIT 47.6 % (39.0-53.0); HEMOGLOBIN 15.8 g/dL (13.0-17.5); LYMPH # 0.6 x10^3/uL (1.0-4.8); LYMPH % 2 % (24-48); MEAN CORPUSCULAR HEMOGLOBIN 31 pg (25-35); MEAN CORPUSCULAR HGB CONC 33 g/dL (31-37); MEAN CORPUSCULAR VOLUME 92 fL (79-100); MONO # 1.8 x10^3/uL (0.0-1.1); MONO % 7 % (0-9); NEUT # 22.1 x10^3/uL (1.8-7.7); NEUT % 90 % (31-73); PLATELET COUNT 281 x10^3/uL (140-400); RED BLOOD COUNT 5.16 x10^6/uL (4.30-5.70); RED CELL DISTRIBUTION WIDTH 12.9 % (11.5-14.5); WHITE BLOOD COUNT 24.5 x10^3/uL (4.0-11.0)
[2020-03-22 08:57] LABS: CALCIUM 8.6 mg/dL (8.5-10.1); POTASSIUM 4.6 mmol/L (3.5-5.1)
[2020-03-22] MEDS: guaiFENesin DM 600/30MG 1 TAB TAB.ER.12H PO SCH (09:00)
[2020-03-22 09:14] LABS: BASE EXCESS ABG -2 mmol/L (-3-3); HCO3 ABG 22 mmol/L (21-28); PCO2 ABG 35 mmHg (35-46); SAT O2 ABG 82 % (92-99)
[2020-03-22 09:32] LABS: PO2 ABG 46 mmHg (65-108)
[2020-03-22 09:33] LABS: FIO2 ABG 100
[2020-03-22] MEDS ORDERED: PROPOFOL 10 MG/ML (100ML) VIAL. IV ONE (10:00)
[2020-03-22] MEDS ORDERED: PROPOFOL 0 ML IV ONE (10:01)
[2020-03-22] MEDS ORDERED: SUCCINYLCHOLINE 200 MG/10 ML VIAL. ONE (10:01)
[2020-03-22] MEDS ORDERED: ETOMIDATE 20 MG/10 ML VIAL. IV ONE ×2 (10:03→10:15)
[2020-03-22] MEDS ORDERED: MIDAZOLAM HCL/PF 5 MG/5 ML VIAL. IV ONE (10:15)
[2020-03-22] MEDS ORDERED: VECURONIUM BOLUS 10 MG VIAL. IV ONE ×2 (10:15→10:49)
[2020-03-22] MEDS ORDERED: PROPOFOL 100 ML IV PRN (10:15)
[2020-03-22] MEDS ORDERED: SUCCINYLCHOLINE 200 MG/10 ML VIAL. IV ONE (10:15)
[2020-03-22] MEDS: MIDAZOLAM 100mg/100ml NS BAG 100 ML IV PRN ×2 (10:24→16:24)
--- NOTE | 2020-03-22 10:27 | PDOC ---
Provider Note Date of Service: DATE: 03/22/20 called for intubation. covid positive with resp failure. etomidate 20mg and suc 100mg ivp. TIME: 10:23 OETT with use of glide scope, 24 cm at teeth, positive etco2. chest xray pending Justifications for Admission General Conditions Poss tachycardia?: No Altered mental status?: Yes Other Justification NSTEMI, new onset A. fib, respiratory failure with hypoxia SHAR CROW CRNA Mar 22, 2020 10:27
[2020-03-22] MEDS: DEXAMETHASONE SOD PHOS 4 MG/ML VIAL IVP SCH (10:51)
[2020-03-22] MEDS: DOXYCYCLINE HYCLATE 100 MG in IV DEXTROSE 5% 100ML 100 ML IV SCH ×2 (10:52→20:45)
--- NOTE | 2020-03-22 10:59 | PDOC ---
[employer] PROGRESS NOTE Date of Service DOS: DATE: 03/22/20 TIME: 10:57 Chief Complaint Chief Complaint NSTEMI COVID-19 Acute hypoxic respiratory failure New onset atrial fibrillation Malnutrition History of Present Illness History of Present Illness 03/22/2020 Patient seen and examined in the [place] [address] ICU He is on BiPAP with 100% FiO2 but barely satting in the mid 80s Appears to be wearing down Has crackles in all lung renee Sedated with a little bit of Dex Discussed with RN Chart reviewed He is critically ill suspect he might need to be intubated possibly? 03/21/2020 Patient seen and examined on the [place] [address] unit ICU He is on BiPAP with 100% oxygen Sedated with DEX Getting IV TPN On IV doxycycline Discussed with RN Chart reviewed He remains critically ill Patient is a 74-year-old male who presents as a transfer from [facility] for altered mental status and NSTEMI. Apparently he did not present to work today and police were contacted to perform a wellness visit. Upon arrival he was found in his recliner surrounded by several bottles of beer. Patient reportedly stated to EMS that he had not been feeling well for the past 24 hours, but did n ot report any symptoms besides generalized fatigue. He denies any fever, chest pain, shortness of breath, cough, sick contacts, or known COVID-19 exposure. His initial troponin at [facility] was noted to be 0.933, with repeat 1.475. He was placed on BiPAP due to acute respiratory failure, and heparin drip. He was transferred to [facility] for cardiology consultation and further medical management. Upon arrival to [facility] several runs of A. fib were noted on telemetry, and according to patient's family they deny any known knowledge of history of atrial fibrillation. 03/20: Seen in [place] [address] ICU. Currently breathing on BiPAP, FiO2 100%. He is afebrile, denies chest pain. No other complaints today. Continue with steroids, antibiotics, remdesivir day 3/5. 03/19: Moved into the ICU overnight due to concern of worsening shortness of breath. Currently breathing on 40 L Vapotherm. He is afebrile, denies chest pain. Continue with steroids, antibiotics, remdesivir day 2/5. Discussed with RN. 03/18: Patient seen and evaluated. Lab results taken at [facility] showing he is COVID-19 positive. Afebrile, breathing on BiPAP at FiO2 100%. ABG obtained today shows pH 7.45, PO2 74, PCO2 39. WBC 10.1. Pro Tani elevated at 4.22. Repeat chest x-ray still stable bilateral diffuse infiltrates. Provide antibiotic coverage with Rocephin and doxycycline. Pulmonology has been consulted due to respiratory distress on BiPAP. Will initiate steroids, remdesivir. Continue supportive care. Vitals/I&O Vitals/I&O: Vital Signs Date Time Temp Pulse Resp B/P (MAP) Pulse Ox O2 Delivery O2 Flow Rate FiO2 03/22/20 10:30 114 22 155/91 (112) 52 03/22/20 09:36 BiPAP/CPAP 03/22/20 08:00 40.0 03/22/20 08:00 98.3 98.3 I & O 03/21/20 03/21/20 03/22/20 15:00 23:00 07:00 Intake Total 325 ml 1226 ml 1443.5 ml Output Total 760 ml 1080 ml 475 ml Balance -435 ml 146 ml 968.5 ml Physical Exam General: moderate distress, Other (On BiPAP) Heart: Regular rate (SR), No murmurs, Other (Tachycardic) Lungs: Wheezing, Crackles Abdomen: Soft Extremities: No clubbing, No cyanosis, No edema Skin: No rashes, No breakdown Labs Labs: Laboratory Tests Test 03/22/20 04:45 03/22/20 08:15 03/22/20 09:00 O2 Saturation 85 % (92-99) 82 % (92-99) Arterial Blood pH 7.36 (7.35-7.45) 7.42 (7.35-7.45) Arterial Blood pCO2 at Patient Temp 37 mmHg (35-46) 35 mmHg (35-46) Arterial Blood pO2 at Patient Temp 52 mmHg (65-108) 46 mmHg (65-108) Arterial Blood HCO3 20 mmol/L (21-28) 22 mmol/L (21-28) Arterial Blood Base Excess -5 mmol/L (-3-3) -2 mmol/L (-3-3) FiO2 100 100 White Blood Count 24.5 x10^3/uL (4.0-11.0) Red Blood Count 5.16 x10^6/uL (4.30-5.70) Hemoglobin 15.8 g/dL (13.0-17.5) Hematocrit 47.6 % (39.0-53.0) Mean Corpuscular Volume 92 fL (79-100) Mean Corpuscular Hemoglobin 31 pg (25-35) Mean Corpuscular Hemoglobin Concent 33 g/dL (31-37) Red Cell Distribution Width 12.9 % (11.5-14.5) Platelet Count 281 x10^3/uL (140-400) Neutrophils (%) (Auto) 90 % (31-73) Lymphocytes (%) (Auto) 2 % (24-48) Monocytes (%) (Auto) 7 % (0-9) Eosinophils (%) (Auto) 0 % (0-3) Basophils (%) (Auto) 0 % (0-3) Neutrophils # (Auto) 22.1 x10^3/uL (1.8-7.7) Lymphocytes # (Auto) 0.6 x10^3/uL (1.0-4.8) Monocytes # (Auto) 1.8 x10^3/uL (0.0-1.1) Eosinophils # (Auto) 0.0 x10^3/uL (0.0-0.7) Basophils # (Auto) 0.0 x10^3/uL (0.0-0.2) Sodium Level 142 mmol/L (136-145) Potassium Level 4.6 mmol/L (3.5-5.1) Chloride Level 107 mmol/L (98-107) Carbon Dioxide Level 23 mmol/L (21-32) Anion Gap 12 (6-14) Blood Urea Nitrogen 27 mg/dL (8-26) Creatinine 1.0 mg/dL (0.7-1.3) Estimated GFR (Cockcroft-Gault) 73.0 Glucose Level 111 mg/dL (70-99) Calcium Level 8.6 mg/dL (8.5-10.1) Assessment and Plan Assessmemt and Plan NSTEMI Acute hypoxic respiratory failure New onset atrial fibrillation COVID-19 PUI Malnutrition Plan: ICU monitoring He might need to be intubated? Await further pulmonary input Covid protocol Cardiology following Continue heparin drip BiPAP Anticipate ischemic cardiac work-up when his COVID-19 results are negative Chest x-ray obtained at [facility] showed multifocal ill-defined opacities bilaterally, concerning for viral pneumonia. FEN - Cardiac diet PPX - Heparin FULL CODE Prognosis guarded Appreciate subspecialist input CC time 33-minute Comment Review of Relevant I have reviewed the following items ángela (where applicable) has been applied. Medications: Current Medications Medications (Trade) Dose Ordered Sig/Brissa Route PRN Reason Start Time Stop Time Status Last Admin Dose Admin Saliva Substitute (Biotene Moisturizing Mouth) 2 spray PRN Q15MIN PRN PO DRY MOUTH 03/21/20 16:00 03/21/20 17:36 Succinylcholine Chloride (Anectine) 100 mg 1X ONCE IV 03/22/20 10:15 03/22/20 10:16 DC 03/22/20 10:18 Etomidate (Amidate) 12 mg 1X ONCE IV 03/22/20 10:15 03/22/20 10:16 DC 03/22/20 10:19 Fentanyl Citrate 30 ml @ 0 mls/hr CONT PRN IV SEE PROTOCOL 03/22/20 10:15 03/22/20 10:25 Midazolam HCl 100 ml @ 0 mls/hr CONT PRN IV SEE PROTOCOL 03/22/20 10:15 03/22/20 10:24 Midazolam HCl (Versed) 5 mg 1X ONCE IV 03/22/20 10:15 03/22/20 10:16 DC 03/22/20 10:19 Justifications for Admission General Conditions Poss tachycardia?: No Altered mental status?: Yes Other Justification NSTEMI, new onset A. fib, respiratory failure with hypoxia VAL WOOD III DO Mar 22, 2020 10:58
[2020-03-22 11:19] LABS: BASE EXCESS COOX -8 mmol/L (-3-3); HCO3 COOX 24 mmol/L (21-28); METHEMOGLOBIN 0.2 % (0.0-1.9); OXYHEMOGLOBIN 68.9 %
--- NOTE | 2020-03-22 11:20 | RAD ---
Single AP view of the chest. Comparison: 03/21/2019. Indication: Endotracheal tube placement Findings: Endotracheal tube is in good position 4.7 cm above the deep. Nasogastric tube is seen with the tip in the body the stomach. The heart is at the upper limits of normal but stable. There is no pneumoth orax or effusion. Bilateral patchy interstitial opacities of the lung bases are reidentified. Impression: 1. Endotracheal tube is in good position. Nasogastric tube is identified. 2. Patchy interstitial opacities persist may be pulmonary edema versus atypical viral infection. Electronically signed by: Chato Reed MD (03/22/2020 11:18 AM) [id number]
[2020-03-22 11:22] LABS: PCO2 COOX 71 mmHg (35-46); PO2 COOX 46 mmHg (65-108)
--- NOTE | 2020-03-22 11:25 | NUR ---
PT very lethargic this morning, ABG results called to Aníbal Luna NP, new orders received to intubate pt at 0950. Pt intubated at 1010 with a 7.5 ET tube, sats remain in the 60-70% range with 100 FiO2 and [address] English here to assess pt. Mari WOOD notified of pt condition and current POC. Telephone consent obtained for a PICC line as well.
--- NOTE | 2020-03-22 11:43 | PDOC ---
PULMONARY PROGRESS NOTES DATE: 03/22/20 TIME: 11:38 Subjective increased respiratory distress,hypoxia now S/P intubation 03/22/20 Vitals Vital Signs Date Time Temp Pulse Resp B/P (MAP) Pulse Ox O2 Delivery O2 Flow Rate FiO2 03/22/20 10:30 114 22 155/91 (112) 52 03/22/20 09:36 BiPAP/CPAP 03/22/20 08:00 40.0 03/22/20 08:00 98.3 98.3 Comments visual exam done due to COVID-19 resp. distress hypoxia intubated/sedated no leg edema Lungs: Crackles Labs Laboratory Tests Test 03/21/20 09:00 03/22/20 04:45 03/22/20 08:15 03/22/20 09:00 White Blood Count 16.0 x10^3/uL (4.0-11.0) 24.5 x10^3/uL (4.0-11.0) Red Blood Count 5.08 x10^6/uL (4.30-5.70) 5.16 x10^6/uL (4.30-5.70) Hemoglobin 15.9 g/dL (13.0-17.5) 15.8 g/dL (13.0-17.5) Hematocrit 46.0 % (39.0-53.0) 47.6 % (39.0-53.0) Mean Corpuscular Volume 91 fL (79-100) 92 fL (79-100) Mean Corpuscular Hemoglobin 31 pg (25-35) 31 pg (25-35) Mean Corpuscular Hemoglobin Concent 35 g/dL (31-37) 33 g/dL (31-37) Red Cell Distribution Width 12.6 % (11.5-14.5) 12.9 % (11.5-14.5) Platelet Count 306 x10^3/uL (140-400) 281 x10^3/uL (140-400) Neutrophils (%) (Auto) 87 % (31-73) 90 % (31-73) Lymphocytes (%) (Auto) 4 % (24-48) 2 % (24-48) Monocytes (%) (Auto) 9 % (0-9) 7 % (0-9) Eosinophils (%) (Auto) 0 % (0-3) 0 % (0-3) Basophils (%) (Auto) 0 % (0-3) 0 % (0-3) Neutrophils # (Auto) 13.9 x10^3/uL (1.8-7.7) 22.1 x10^3/uL (1.8-7.7) Lymphocytes # (Auto) 0.7 x10^3/uL (1.0-4.8) 0.6 x10^3/uL (1.0-4.8) Monocytes # (Auto) 1.4 x10^3/uL (0.0-1.1) 1.8 x10^3/uL (0.0-1.1) Eosinophils # (Auto) 0.0 x10^3/uL (0.0-0.7) 0.0 x10^3/uL (0.0-0.7) Basophils # (Auto) 0.0 x10^3/uL (0.0-0.2) 0.0 x10^3/uL (0.0-0.2) Segmented Neutrophils % 85 % (35-66) Band Neutrophils % 4 % (0-9) Lymphocytes % 6 % (24-48) Monocytes % 5 % (0-10) Platelet Estimate Adequate (ADEQUATE) D-Dimer (Nadia) 3.60 ug/mlFEU (0.00-0.50) Sodium Level 141 mmol/L (136-145) 142 mmol/L (136-145) Potassium Level 4.4 mmol/L (3.5-5.1) 4.6 mmol/L (3.5-5.1) Chloride Level 105 mmol/L (98-107) 107 mmol/L (98-107) Carbon Dioxide Level 27 mmol/L (21-32) 23 mmol/L (21-32) Anion Gap 9 (6-14) 12 (6-14) Blood Urea Nitrogen 27 mg/dL (8-26) 27 mg/dL (8-26) Creatinine 0.8 mg/dL (0.7-1.3) 1.0 mg/dL (0.7-1.3) Estimated GFR (Cockcroft-Gault) 94.5 73.0 Glucose Level 117 mg/dL (70-99) 111 mg/dL (70-99) Calcium Level 8.3 mg/dL (8.5-10.1) 8.6 mg/dL (8.5-10.1) Magnesium Level 2.0 mg/dL (1.8-2.4) Ferritin 1571 ng/mL (26-388) Lactate Dehydrogenase 574 U/L (85-227) Creatine Kinase 100 U/L (39-308) BJ-Utu-R-Type Natriuretic Peptide 366 pg/mL (0-124) O2 Saturation 85 % (92-99) 82 % (92-99) Arterial Blood pH 7.36 (7.35-7.45) 7.42 (7.35-7.45) Arterial Blood pCO2 at Patient Temp 37 mmHg (35-46) 35 mmHg (35-46) Arterial Blood pO2 at Patient Temp 52 mmHg (65-108) 46 mmHg (65-108) Arterial Blood HCO3 20 mmol/L (21-28) 22 mmol/L (21-28) Arterial Blood Base Excess -5 mmol/L (-3-3) -2 mmol/L (-3-3) FiO2 100 100 Test 03/22/20 11:00 O2 Saturation 69 % (92-99) Arterial Blood pH 7.14 (7.35-7.45) Arterial Blood pCO2 at Patient Temp 71 mmHg (35-46) Arterial Blood pO2 at Patient Temp 46 mmHg (65-108) Arterial Blood HCO3 24 mmol/L (21-28) Arterial Blood Base Excess -8 mmol/L (-3-3) Oxyhemoglobin 68.9 % Methemoglobin 0.2 % (0.0-1.9) Carbon Monoxide, Quantitative 0.4 % (0.0-1.9) Laboratory Tests Test 03/22/20 04:45 03/22/20 08:15 03/22/20 09:00 03/22/20 11:00 O2 Saturation 85 % (92-99) 82 % (92-99) 69 % (92-99) Arterial Blood pH 7.36 (7.35-7.45) 7.42 (7.35-7.45) 7.14 (7.35-7.45) Arterial Blood pCO2 at Patient Temp 37 mmHg (35-46) 35 mmHg (35-46) 71 mmHg (35-46) Arterial Blood pO2 at Patient Temp 52 mmHg (65-108) 46 mmHg (65-108) 46 mmHg (65-108) Arterial Blood HCO3 20 mmol/L (21-28) 22 mmol/L (21-28) 24 mmol/L (21-28) Arterial Blood Base Excess -5 mmol/L (-3-3) -2 mmol/L (-3-3) -8 mmol/L (-3-3) FiO2 100 100 White Blood Count 24.5 x10^3/uL (4.0-11.0) Red Blood Count 5.16 x10^6/uL (4.30-5.70) Hemoglobin 15.8 g/dL (13.0-17.5) Hematocrit 47.6 % (39.0-53.0) Mean Corpuscular Volume 92 fL (79-100) Mean Corpuscular Hemoglobin 31 pg (25-35) Mean Corpuscular Hemoglobin Concent 33 g/dL (31-37) Red Cell Distribution Width 12.9 % (11.5-14.5) Platelet Count 281 x10^3/uL (140-400) Neutrophils (%) (Auto) 90 % (31-73) Lymphocytes (%) (Auto) 2 % (24-48) Monocytes (%) (Auto) 7 % (0-9) Eosinophils (%) (Auto) 0 % (0-3) Basophils (%) (Auto) 0 % (0-3) Neutrophils # (Auto) 22.1 x10^3/uL (1.8-7.7) Lymphocytes # (Auto) 0.6 x10^3/uL (1.0-4.8) Monocytes # (Auto) 1.8 x10^3/uL (0.0-1.1) Eosinophils # (Auto) 0.0 x10^3/uL (0.0-0.7) Basophils # (Auto) 0.0 x10^3/uL (0.0-0.2) Sodium Level 142 mmol/L (136-145) Potassium Level 4.6 mmol/L (3.5-5.1) Chloride Level 107 mmol/L (98-107) Carbon Dioxide Level 23 mmol/L (21-32) Anion Gap 12 (6-14) Blood Urea Nitrogen 27 mg/dL (8-26) Creatinine 1.0 mg/dL (0.7-1.3) Estimated GFR (Cockcroft-Gault) 73.0 Glucose Level 111 mg/dL (70-99) Calcium Level 8.6 mg/dL (8.5-10.1) Oxyhemoglobin 68.9 % Methemoglobin 0.2 % (0.0-1.9) Carbon Monoxide, Quantitative 0.4 % (0.0-1.9) Comments CXR 03/21 IMPRESSION: Stable diffuse interstitial infiltrates Impression . IMPRESSION: 1. Acute hypoxic respiratory failure, requiring 100% FiO2 with BiPAP. Main etiology is COVID-19 viral pneumonia/ ARDS/ALI. -- worsening now intubated He also has AFib and possibility of superimposed diastolic congestive heart failure is in the differential diagnosis; 2. Ywi-PD-adczpohqx myocardial infarction 3. History of alcoholism. 4. Moderate to severe protein-calorie malnutrition. 5. Abnormal troponin with non-ST myocardial infarction. 6. COVID- positive Plan . RECOMMENDATIONS: Continue current vent support A/C mode, intubated on 03/22/20-- Fi02 100% PEEP 10 Follow CXR/ABG -- lasxi X1 today, increase rate to 28 and PEEP to 12 COVID-19 positive Continue full 10 day course of steroids Continue full course of remdesivir Continue abx, Doxy and D/C rocpehin and start zosyn Follow cardiology recs Contsult safety and occupational health manager for TF recs DVT/GI PPX D/W RN and RT Critical Care Time [id number] IRVIN CHIN MD Mar 22, 2020 11:43
[2020-03-22] MEDS ORDERED: FUROSEMIDE 40 MG/4 ML VIAL. IVP ONE (11:45)
[2020-03-22] MEDS ORDERED: SODIUM BICARB ADULT 8.4% 50 MEQ/50 ML DISP.SYRIN. IV ONE (11:45)
[2020-03-22] MEDS ORDERED: PIP/TAZO PER PHARMACY MC PRN (11:45)
[2020-03-22] MEDS: PIPERACILLIN/TAZOBACTAM 4.5 GM in IV NORMAL SALINE 100ML 100 ML IV SCH ×3 (12:19→23:53)
[2020-03-22] MEDS: CHOLECALCIFEROL (VITAMIN D3) 5,000 UNIT CAPSULE PO SCH (12:23)
[2020-03-22] MEDS: ASPIRIN ENTERIC COATED 81 MG TABLET.DR. PO SCH (12:23)
[2020-03-22] MEDS: ENOXAPARIN 40 MG/0.4 ML SYRINGE. SQ SCH ×2 (12:23→20:44)
[2020-03-22] MEDS: LACTOBACILLUS RHAMNOSUS GG 1 CAPSULE. PO SCH ×2 (12:23→20:44)
[2020-03-22] MEDS: ASCORBIC ACID 500 MG TABLET PO SCH (12:23)
[2020-03-22] MEDS: REMDESIVIR 100mg in NORMAL SALINE 250ML X 4 DAYS IV SCH (14:05)
--- NOTE | 2020-03-22 15:09 | NUR ---
SS following up with discharge planning. SS reviewed pt chart and discussed with pt RN. Pt intubated today. Pt now on the vent at 100%. COVID19 positive. Pt on IV Zosyn and IV Doxycycline. Not stable. SS will continue to follow for discharge planning.
[2020-03-22] MEDS: VECURONIUM BOLUS 10 MG VIAL. IV PRN ×2 (16:24→20:29)
--- NOTE | 2020-03-22 16:27 | RAD ---
XR CHEST 1V History: Reason: S/P PICC placement / Spl. Instructions: / History: Comparison: March 22, 2020. 10:16 AM Findings: Interval placement left PICC with tip projecting over the cavoatrial junction. Diffuse interstitial a nd alveolar opacities, decreased compared to prior. No pleural effusion. No pneumothorax. Unchanged h eart size. Stable endotracheal tube. Stable enteric tube with tip projecting over the proximal stomach and side port within the distal eso phagus. Impression: 1. Interval placement left PICC. 2. Enteric tube with tip projecting over the proximal stomach and side port within the distal esopha raheel. Consider advancement. 3. Diffuse interstitial and alveolar opacities, decreased compared to prior. Electronically signed by: David Martinez DO (03/22/2020 4:24 PM) [facility]
[2020-03-22 16:29] LABS: BASE EXCESS ABG -5 mmol/L (-3-3); HCO3 ABG 23 mmol/L (21-28); PCO2 ABG 58 mmHg (35-46); PO2 ABG 76 mmHg (65-108); SAT O2 ABG 93 % (92-99)
[2020-03-22 16:31] LABS: FIO2 ABG 100
[2020-03-22] MEDS: NOREPINEPHRINE VIAL 8 MG in IV DEXTROSE 5% 250 ML IV PRN (17:12)
[2020-03-22] MEDS: ATORVASTATIN CALCIUM 10 MG TABLET. PO SCH (20:44)
[2020-03-23] VITALS (27 sets, daily range): BP systolic 108–162; BP diastolic 50–80
[2020-03-23] MEDS: ACETAMINOPHEN 325 MG TABLET. PO PRN ×2 (00:16→21:06)
[2020-03-23] MEDS: DEXMEDETOMIDINE 400 MCG in IV NORMAL SALINE 100ML 96 ML IV PRN ×6 (00:40→21:51)
--- NOTE | 2020-03-23 01:33 | NUR ---
Notified Dr. Thorpe of temperature of 103.0 at midnight with Tylenol given. No new orders at this time.
[2020-03-23] MEDS: NOREPINEPHRINE VIAL 8 MG in IV DEXTROSE 5% 250 ML IV PRN ×2 (01:43→18:38)
[2020-03-23] MEDS: MIDAZOLAM 100mg/100ml NS BAG 100 ML IV PRN ×2 (01:44→12:31)
[2020-03-23] MEDS: VECURONIUM BOLUS 10 MG VIAL. IV PRN (02:45)
[2020-03-23] MEDS: PIPERACILLIN/TAZOBACTAM 4.5 GM in IV NORMAL SALINE 100ML 100 ML IV SCH ×4 (06:11→23:38)
[2020-03-23 06:52] LABS: CALCIUM 7.7 mg/dL (8.5-10.1); CREATININE 1.4 mg/dL (0.7-1.3); GFR 49.5
[2020-03-23 06:58] LABS: MAGNESIUM 2.4 mg/dL (1.8-2.4)
[2020-03-23 07:00] LABS: POTASSIUM 5.3 mmol/L (3.5-5.1)
[2020-03-23 08:26] LABS: BASE EXCESS ABG -5 mmol/L (-3-3); HCO3 ABG 24 mmol/L (21-28); PO2 ABG 186 mmHg (65-108); SAT O2 ABG 99 % (92-99)
[2020-03-23 08:31] LABS: FIO2 ABG 100; PCO2 ABG 62 mmHg (35-46)
[2020-03-23] MEDS: LACTOBACILLUS RHAMNOSUS GG 1 CAPSULE. PO SCH ×2 (08:52→20:34)
[2020-03-23] MEDS: ENOXAPARIN 40 MG/0.4 ML SYRINGE. SQ SCH (08:52)
[2020-03-23] MEDS: CHOLECALCIFEROL (VITAMIN D3) 5,000 UNIT CAPSULE PO SCH (08:52)
[2020-03-23] MEDS: ASPIRIN ENTERIC COATED 81 MG TABLET.DR. PO SCH (08:52)
[2020-03-23] MEDS: DEXAMETHASONE SOD PHOS 4 MG/ML VIAL IVP SCH (08:53)
[2020-03-23] MEDS: ASCORBIC ACID 500 MG TABLET PO SCH (08:53)
[2020-03-23] MEDS: DOXYCYCLINE HYCLATE 100 MG in IV DEXTROSE 5% 100ML 100 ML IV SCH ×2 (08:59→20:35)
--- NOTE | 2020-03-23 09:02 | PDOC ---
[employer] PROGRESS NOTE Date of Service DOS: DATE: 03/23/20 TIME: 09:01 Chief Complaint Chief Complaint NSTEMI COVID-19 Acute hypoxic respiratory failure New onset atrial fibrillation Malnutrition History of Present Illness History of Present Illness 03/23/2020 Patient seen and examined in the [place] [address] ICU Discussed with RN Chart reviewed He had to be intubated yesterday Assist-control//500/1 100% FiO2 with 12 of PEEP His D-dimer is greater than 20 I suspect this is Covid 19 related He had a temperature last night of 103 is down this morning On Levophed and Zosyn Sedated with fentanyl Versed and Dex He is extremely critically ill 03/22/2020 Patient seen and examined in the [place] [address] ICU He is on BiPAP with 100% FiO2 but barely satting in the mid 80s Appears to be wearing down Has crackles in all lung renee Sedated with a little bit of Dex Discussed with RN Chart reviewed He is critically ill suspect he might need to be intubated possibly? 03/21/2020 Patient seen and examined on the [place] [address] unit ICU He is on BiPAP with 100% oxygen Sedated with DEX Getting IV TPN On IV doxycycline Discussed with RN Chart reviewed He remains critically ill Patient is a 74-year-old male who presents as a transfer from [facility] for altered mental status and NSTEMI. Apparently he did not present to work today and police were contacted to perform a wellness visit. Upon arrival he was found in his recliner surrounded by several bottles of beer. Patient reportedly stated to EMS that he had not been feeling well for the past 24 hours, but did not report any symptoms besides generalized fatigue. He denies any fever, chest pain, shortness of breath, cough, sick contacts, or known COVID-19 exposure. His initial troponin at [facility] was noted to be 0.933, with repeat 1.475. He was placed on BiPAP due to acute respiratory failure, and heparin drip. He was transferred to [facility] for cardiology consultation and further medical management. Upon arrival to [facility] several runs of A. fib were noted on telemetry, and according to patient's family they deny any known knowledge of history of atrial fibrillation. 03/20: Seen in [place] [address] ICU. Currently breathing on BiPAP, FiO2 100%. He is afebrile, denies chest pain. No other complaints today. Continue with stero ids, antibiotics, remdesivir day 3. 03/19: Moved into the ICU overnight due to concern of worsening shortness of breath. Currently breathing on 40 L Vapotherm. He is afebrile, denies chest pain. Continue with steroids, antibiotics, remdesivir day 2. Discussed with RN. 03/18: Patient seen and evaluated. Lab results taken at [facility] showing he is COVID-19 positive. Afebrile, breathing on BiPAP at FiO2 100%. ABG obtained today shows pH 7.45, PO2 74, PCO2 39. WBC 10.1. Pro Tani elevated at 4.22. Rep eat chest x-ray still stable bilateral diffuse infiltrates. Provide antibiotic coverage with Rocephin and doxycycline. Pulmonology has been consulted due to respiratory distress on BiPAP. Will initiate steroids, remdesivir. Continue supportive care. Vitals/I&O Vitals/I&O: Vital Signs Date Time Temp Pulse Resp B/P (MAP) Pulse Ox O2 Delivery O2 Flow Rate FiO2 03/23/20 05:45 99.3 110 28 138/68 (91) 100 Ventilator 99.3 03/22/20 08:00 40.0 I & O 03/22/20 03/22/20 03/23/20 15:00 23:00 07:00 Intake Total 430 ml 1520 ml 1250.7 ml Output Total 255 ml 350 ml 825 ml Balance 175 ml 1170 ml 425.7 ml Physical Exam General: moderate distress, Other (On BiPAP) Heart: Regular rate (SR), No murmurs, Other (Tachycardic) Lungs: Crackles Abdomen: Soft Extremities: No clubbing, No cyanosis, No edema Skin: No rashes, No breakdown Labs Labs: Laboratory Tests Test 03/22/20 11:00 03/22/20 16:15 03/23/20 05:40 03/23/20 06:30 O2 Saturation 69 % (92-99) 93 % (92-99) Arterial Blood pH 7.14 (7.35-7.45) 7.22 (7.35-7.45) Arterial Blood pCO2 at Patient Temp 71 mmHg (35-46) 58 mmHg (35-46) Arterial Blood pO2 at Patient Temp 46 mmHg (65-108) 76 mmHg (65-108) Arterial Blood HCO3 24 mmol/L (21-28) 23 mmol/L (21-28) Arterial Blood Base Excess -8 mmol/L (-3-3) -5 mmol/L (-3-3) Oxyhemoglobin 68.9 % Methemoglobin 0.2 % (0.0-1.9) Carbon Monoxide, Quantitative 0.4 % (0.0-1.9) FiO2 100 D-Dimer (Nadia) > 20.00 ug/mlFEU Magnesium Level 2.4 mg/dL (1.8-2.4) Ferritin 2249 ng/mL (26-388) Lactate Dehydrogenase 556 U/L (85-227) Creatine Kinase 1180 U/L (39-308) NY-Vhq-G-Type Natriuretic Peptide 1747 pg/mL (0-124) Sodium Level 141 mmol/L (136-145) Potassium Level 5.3 mmol/L (3.5-5.1) Chloride Level 109 mmol/L (98-107) Carbon Dioxide Level 26 mmol/L (21-32) Anion Gap 6 (6-14) Blood Urea Nitrogen 40 mg/dL (8-26) Creatinine 1.4 mg/dL (0.7-1.3) Estimated GFR (Cockcroft-Gault) 49.5 Glucose Level 227 mg/dL (70-99) Calcium Level 7.7 mg/dL (8.5-10.1) Test 03/23/20 08:15 O2 Saturation 99 % (92-99) Arterial Blood pH 7.21 (7.35-7.45) Arterial Blood pCO2 at Patient Temp 62 mmHg (35-46) Arterial Blood pO2 at Patient Temp 186 mmHg (65-108) Arterial Blood HCO3 24 mmol/L (21-28) Arterial Blood Base Excess -5 mmol/L (-3-3) FiO2 100 Assessment and Plan Assessmemt and Plan NSTEMI Acute hypoxic respiratory failure New onset atrial fibrillation COVID-19 PUI Malnutrition Plan: ICU monitoring Vent weaning IV antibiotics Continue sedation with Versed fentanyl and Dex Await further pulmonary input Covid protocol Cardiology following Continue heparin drip BiPAP Anticipate ischemic cardiac work-up when his COVID-19 results are negative Chest x-ray obtained at [facility] showed multifocal ill-defined opacities bilaterally, concerning for viral pneumonia. FEN - Cardiac diet PPX - Heparin FULL CODE Prognosis guarded possibly terminal? Appreciate subspecialist input CC time 32-minute Comment Review of Relevant I have reviewed the following items ángela (where applicable) has been applied. Medications: Current Medications Medications (Trade) Dose Ordered Sig/Brissa Route PRN Reason Start Time Stop Time Status Last Admin Dose Admin Succinylcholine Chloride (Anectine) 100 mg 1X ONCE IV 03/22/20 10:15 03/22/20 10:16 DC 03/22/20 10:18 Etomidate (Amidate) 12 mg 1X ONCE IV 03/22/20 10:15 03/22/20 10:16 DC 03/22/20 10:19 Fentanyl Citrate 30 ml @ 0 mls/hr CONT PRN IV SEE PROTOCOL 03/22/20 10:15 03/23/20 01:44 Midazolam HCl 100 ml @ 0 mls/hr CONT PRN IV SEE PROTOCOL 03/22/20 10:15 03/23/20 01:44 Midazolam HCl (Versed) 5 mg 1X ONCE IV 03/22/20 10:15 03/22/20 10:16 DC 03/22/20 10:19 Vecuronium Hurricane (Norcuron Bolus) 6 mg 1X ONCE IV 03/22/20 10:15 03/22/20 10:53 DC 03/22/20 11:20 Vecuronium Hurricane (Norcuron Bolus) 10 mg PRN Q4HRS PRN IV NEEDED FOR SEDATION 03/22/20 11:00 03/23/20 02:45 Furosemide (Lasix) 40 mg 1X ONCE IVP 03/22/20 11:45 03/22/20 11:48 DC 03/22/20 12:24 Sodium Bicarbonate (Sodium Bicarb Adult 8.4% Syr) 50 meq 1X ONCE IV 03/22/20 11:45 03/22/20 11:50 DC 03/22/20 12:23 Piperacillin Sod/ Tazobactam Sod 4.5 gm/Sodium Chloride 100 ml @ 200 mls/hr Q6HRS IV 03/22/20 12:00 03/23/20 06:11 Norepinephrine Bitartrate 8 mg/ Dextrose 258 ml @ 18.015 mls/ hr CONT PRN IV PER PROTOCOL 03/22/20 16:30 03/23/20 01:43 Justifications for Admission General Conditions Poss tachycardia?: No Altered mental status?: Yes Other Justification NSTEMI, new onset A. fib, respiratory failure with hypoxia VAL WOOD III DO Mar 23, 2020 09:02
[2020-03-23 09:06] LABS: SAT O2 COOX 69 % (92-99)
[2020-03-23] MEDS ORDERED: SODIUM BICARB ADULT 8.4% 50 MEQ/50 ML DISP.SYRIN. IV ONE (10:45)
--- NOTE | 2020-03-23 11:02 | PDOC ---
PULMONARY PROGRESS NOTES DATE: 03/23/20 TIME: 11:01 Subjective Intubated 03/22 with worsening respiratory distress,hypoxia now in shock, multi-system organ failure, markedly elevated D-dIMER AC MODE Vitals Vital Signs Date Time Temp Pulse Resp B/P (MAP) Pulse Ox O2 Delivery O2 Flow Rate FiO2 03/23/20 08:15 100 Ventilator 03/23/20 05:45 99.3 110 28 138/68 (91) 99.3 03/22/20 08:00 40.0 Comments visual exam done due to COVID-19 resp. distress hypoxia intubated/sedated no leg edema Labs Laboratory Tests Test 03/22/20 04:45 03/22/20 08:15 03/22/20 09:00 03/22/20 11:00 O2 Saturation 85 % (92-99) 82 % (92-99) 69 % (92-99) Arterial Blood pH 7.36 (7.35-7.45) 7.42 (7.35-7.45) 7.14 (7.35-7.45) Arterial Blood pCO2 at Patient Temp 37 mmHg (35-46) 35 mmHg (35-46) 71 mmHg (35-46) Arterial Blood pO2 at Patient Temp 52 mmHg (65-108) 46 mmHg (65-108) 46 mmHg (65-108) Arterial Blood HCO3 20 mmol/L (21-28) 22 mmol/L (21-28) 24 mmol/L (21-28) Arterial Blood Base Excess -5 mmol/L (-3-3) -2 mmol/L (-3-3) -8 mmol/L (-3-3) FiO2 100 100 White Blood Count 24.5 x10^3/uL (4.0-11.0) Red Blood Count 5.16 x10^6/uL (4.30-5.70) Hemoglobin 15.8 g/dL (13.0-17.5) Hematocrit 47.6 % (39.0-53.0) Mean Corpuscular Volume 92 fL (79-100) Mean Corpuscular Hemoglobin 31 pg (25-35) Mean Corpuscular Hemoglobin Concent 33 g/dL (31-37) Red Cell Distribution Width 12.9 % (11.5-14.5) Platelet Count 281 x10^3/uL (140-400) Neutrophils (%) (Auto) 90 % (31-73) Lymphocytes (%) (Auto) 2 % (24-48) Monocytes (%) (Auto) 7 % (0-9) Eosinophils (%) (Auto) 0 % (0-3) Basophils (%) (Auto) 0 % (0-3) Neutrophils # (Auto) 22.1 x10^3/uL (1.8-7.7) Lymphocytes # (Auto) 0.6 x10^3/uL (1.0-4.8) Monocytes # (Auto) 1.8 x10^3/uL (0.0-1.1) Eosinophils # (Auto) 0.0 x10^3/uL (0.0-0.7) Basophils # (Auto) 0.0 x10^3/uL (0.0-0.2) Sodium Level 142 mmol/L (136-145) Potassium Level 4.6 mmol/L (3.5-5.1) Chloride Level 107 mmol/L (98-107) Carbon Dioxide Level 23 mmol/L (21-32) Anion Gap 12 (6-14) Blood Urea Nitrogen 27 mg/dL (8-26) Creatinine 1.0 mg/dL (0.7-1.3) Estimated GFR (Cockcroft-Gault) 73.0 Glucose Level 111 mg/dL (70-99) Calcium Level 8.6 mg/dL (8.5-10.1) Oxyhemoglobin 68.9 % Methemoglobin 0.2 % (0.0-1.9) Carbon Monoxide, Quantitative 0.4 % (0.0-1.9) Test 03/22/20 16:15 03/23/20 05:40 03/23/20 06:30 03/23/20 08:15 O2 Saturation 93 % (92-99) 99 % (92-99) Arterial Blood pH 7.22 (7.35-7.45) 7.21 (7.35-7.45) Arterial Blood pCO2 at Patient Temp 58 mmHg (35-46) 62 mmHg (35-46) Arterial Blood pO2 at Patient Temp 76 mmHg (65-108) 186 mmHg (65-108) Arterial Blood HCO3 23 mmol/L (21-28) 24 mmol/L (21-28) Arterial Blood Base Excess -5 mmol/L (-3-3) -5 mmol/L (-3-3) FiO2 100 100 D-Dimer (Nadia) > 20.00 ug/mlFEU Magnesium Level 2.4 mg/dL (1.8-2.4) Ferritin 2249 ng/mL (26-388) Lactate Dehydrogenase 556 U/L (85-227) Creatine Kinase 1180 U/L (39-308) WW-Cll-O-Type Natriuretic Peptide 1747 pg/mL (0-124) Sodium Level 141 mmol/L (136-145) Potassium Level 5.3 mmol/L (3.5-5.1) Chloride Level 109 mmol/L (98-107) Carbon Dioxide Level 26 mmol/L (21-32) Anion Gap 6 (6-14) Blood Urea Nitrogen 40 mg/dL (8-26) Creatinine 1.4 mg/dL (0.7-1.3) Estimated GFR (Cockcroft-Gault) 49.5 Glucose Level 227 mg/dL (70-99) Calcium Level 7.7 mg/dL (8.5-10.1) Laboratory Tests Test 03/22/20 16:15 03/23/20 05:40 03/23/20 06:30 03/23/20 08:15 O2 Saturation 93 % (92-99) 99 % (92-99) Arterial Blood pH 7.22 (7.35-7.45) 7.21 (7.35-7.45) Arterial Blood pCO2 at Patient Temp 58 mmHg (35-46) 62 mmHg (35-46) Arterial Blood pO2 at Patient Temp 76 mmHg (65-108) 186 mmHg (65-108) Arterial Blood HCO3 23 mmol/L (21-28) 24 mmol/L (21-28) Arterial Blood Base Excess -5 mmol/L (-3-3) -5 mmol/L (-3-3) FiO2 100 100 D-Dimer (Nadia) > 20.00 ug/mlFEU Magnesium Level 2.4 mg/dL (1.8-2.4) Ferritin 2249 ng/mL (26-388) Lactate Dehydrogenase 556 U/L (85-227) Creatine Kinase 1180 U/L (39-308) VV-Vve-X-Type Natriuretic Peptide 1747 pg/mL (0-124) Sodium Level 141 mmol/L (136-145) Potassium Level 5.3 mmol/L (3.5-5.1) Chloride Level 109 mmol/L (98-107) Carbon Dioxide Level 26 mmol/L (21-32) Anion Gap 6 (6-14) Blood Urea Nitrogen 40 mg/dL (8-26) Creatinine 1.4 mg/dL (0.7-1.3) Estimated GFR (Cockcroft-Gault) 49.5 Glucose Level 227 mg/dL (70-99) Calcium Level 7.7 mg/dL (8.5-10.1) Comments CXR 03/22 IMPRESSION: diffuse interstitial infiltrates Impression . IMPRESSION: 1. Acute hypoxic respiratory failure due to COVID-19 viral pneumonia/ ARDS/ALI. -Intubated 03/22 with worsening respiratory distress,hypoxia now in shock, multi-system organ failure, markedly elevated D-dIMER 2. [id number] myocardial infarction/ Afib 3. History of alcoholism. 4. Moderate to severe protein-calorie malnutrition. 5. Abnormal troponin with non-ST myocardial infarction. 6. COVID- positive 7. Shock, viral sepsis 8. MICHAEL due to shock/ COVID -19 9. Markedly elevated D-Dimer. need to fully anti-coagulate due to high risk for VTE Plan . RECOMMENDATIONS: Continue current vent support A/C mode, intubated on 03/22/20--wean FIO2/PEEP Follow CXR/ABG -- COVID-19 positive Continue full 10 day course of steroids Continue full course of remdesivir Continue abx, Follow cardiology recs full dose heparin TF wean vasopressors bicarb IV prn Renal rec DVT/GI PPX D/W RN and RT d/w daughter. Prognosis explained. Full code Critical Care Time [id number] AM IRVIN STOUT MD Mar 23, 2020 11:02
[2020-03-23] MEDS ORDERED: HEPARIN for IV BOLUS 10,000 UNIT/10 ML VIAL. IV PRN ×2 (11:15)
[2020-03-23] MEDS: HEPARIN 25,000UTS/250ML PREMIX 250 ML IV PRN (12:34)
[2020-03-23] MEDS ORDERED: ANTI-COAG MONITOR BY PHARMACY. MC PRN (12:45)
--- NOTE | 2020-03-23 17:07 | PDOC2 ---
CONSULT Date of Consult Date of Consult DATE: 03/23/20 TIME: 16:56 Reason for Consult Reason for Consult: MICHAEL Referring Physician Referring Physician: ISRAEL Identification/Chief Complaint Chief Complaint THIS IS A 74 YR OLD WITH CONFUSION. NOTED TO HAVE AN NSTEMI AND TRANSFERRED HERE TO [facility] ICU. ALSO NOTED TO BE IN RESP FAILURE AND ON THE VENT NOW. TROPONIN LEVELS HAVE BEEN UP AND CARDIOLOGY EVALUATION IS ONGOING WELL. CURRENTLY ON THE VENT NEEDING 100% FIO2. HAS MICHAEL WITH CR OF 1.4 AND DECREASING UO. NO KNOWN CKD REPORTED. IS NOW POSITIVE FOR COVID 19 PNEUMONIA. Source Source: Chart review History of Present Illness Reason for Visit: ABOVE Past Medical History Cardiovascular: AFIB (?), HTN (on losartan 50 mg) Pulmonary: No pertinent hx CENTRAL NERVOUS SYSTEM: Other (No pertinent history) Heme/Onc: No pertinent hx Hepatobiliary: No pertinent hx Psych: No pertinent hx Musculoskeletal: Osteoarthritis Infectious disease: Herpes zoster (was on acyclovir), Other (Leg cellulitis) ENT: Other (cataract) Renal/: No pertinent hx, Benign prostatic enlarg. Endocrine: No pertinent hx Dermatology: Rash Past Surgical History Past Surgical History: Other (right hand and left foot surgery) Family History Family History UNKNOWN Social History Quit ALCOHOL: none Drugs: None Lives: Alone Current Medications Current Medications Current Medications Heparin Sodium (Porcine) (Heparin Sodium) 2,200 unit PRN Q6HRS PRN IV FOR UFH LEVEL LESS THAN 0.2 Last administered on 03/17/20at 23:12; Start 03/17/20 at 20:45; Stop 03/18/20 at 12:30; Status DC Heparin Sodium/ Dextrose 250 ml @ 0 mls/hr CONT PRN IV PER PROTOCOL Last administered on 03/18/20at 06:19; Start 03/17/20 at 21:00; Stop 03/18/20 at 12:30; Status DC Heparin Sodium (Porcine) (Heparin Sodium) 2,200 unit PRN Q6HRS PRN IV FOR UFH LEVEL LESS THAN 0.2; Start 03/17/20 at 21:00; Stop 03/17/20 at 20:57; Status DC Sodium Chloride (Normal Saline Flush) 3 ml PRN DAILY PRN IV AFTER MEDS AND BLOOD DRAWS; Start 03/17/20 at 21:00 Tramadol HCl (Ultram) 50 mg PRN Q6HRS PRN PO PAIN Last administered on 03/18/20at 02:41; Start 03/17/20 at 22:45 Morphine Sulfate (Morphine Sulfate) 4 mg PRN Q2HR PRN IV MODERATE PAIN, SEVERE PAIN Last administered on 03/22/20at 09:02; Start 03/17/20 at 22:45 Ondansetron HCl (Zofran) 4 mg PRN Q6HRS PRN IVP NAUSEA/VOMITING; Start 03/17/20 at 22:45 Al Hydroxide/Mg Hydroxide (Mylanta Plus Xs) 30 ml PRN Q3HRS PRN PO HEARTBURN / GAS; Start 03/17/20 at 22:45 Calcium Carbonate/ Glycine (Tums) 500 mg PRN Q3HRS PRN PO UPSET STOMACH; Start 03/17/20 at 22:45 Morphine Sulfate (Morphine Sulfate) 2 mg PRN Q1HR PRN IV MILD PAIN 1-3; Start 03/17/20 at 22:45 Acetaminophen (Tylenol) 650 mg PRN Q6HRS PRN PO Headaches, Temp > 101.5F Last administered on 03/23/20at 00:16; Start 03/17/20 at 22:45 Magnesium Hydroxide (Milk Of Magnesia) 2,400 mg PRN Q12HR PRN PO CONSTIPATION; Start 03/17/20 at 22:45 Bisacodyl (Dulcolax Supp) 10 mg PRN DAILY PRN CA CONSTIPATION; Start 03/17/20 at 22:45 Aspirin (Ecotrin) 81 mg DAILYWBKFT PO Last administered on 03/23/20at 08:52; Start 03/18/20 at 09:00 Furosemide (Lasix) 40 mg 1X ONCE IVP Last administered on 03/18/20at 09:02; Start 03/18/20 at 09:00; Stop 03/18/20 at 09:01; Status DC Ceftriaxone Sodium (Rocephin) 1 gm Q24H IVP Last administered on 03/21/20at 11 :22; Start 03/18/20 at 11:00; Stop 03/22/20 at 11:46; Status DC Doxycycline Hyclate 100 mg/ Dextrose 100 ml @ 50 mls/hr Q12HR IV Last administered on 03/23/20at 08:59; Start 03/18/20 at 11:00 Dexamethasone Sodium Phosphate (Decadron) 6 mg DAILY IVP Last administered on 03/23/20at 08:53; Start 03/19/20 at 09:00 Insulin Human Lispro (HumaLOG) 0-9 UNITS TIDWMEALS SQ ; Start 03/18/20 at 17:00; Stop 03/21/20 at 09:00; Status DC Dextrose (Dextrose 50%-Water Syringe) 12.5 gm PRN Q15MIN PRN IV SEE COMMENTS; Start 03/18/20 at 12:15 Dexamethasone Sodium Phosphate (Decadron) 6 mg 1X ONCE IVP Last administered on 03/18/20at 12:49; Start 03/18/20 at 13:00; Stop 03/18/20 at 13:01; Status DC Ascorbic Acid (Vitamin C) 500 mg Q6HRS PO Last administered on 03/20/20at 23:52; Start 03/18/20 at 13:00; Stop 03/21/20 at 12:02; Status DC Vitamin D (Vitamin D3) 5,000 unit DAILY PO Last administered on 03/23/20at 08:52; Start 03/18/20 at 13:00 Remdesivir 200 mg/ Sodium Chloride 210 ml @ 210 mls/hr 1X ONCE IV Last administered on 03/18/20at 13:42; Start 03/18/20 at 13:00; Stop 03/18/20 at 13:59; Status DC Remdesivir 100 mg/ Sodium Chloride 230 ml @ 460 mls/hr Q24H IV Last administered on 03/22/20at 14:05; Start 03/19/20 at 13:00; Stop 03/22/20 at 13:29; Status DC Enoxaparin Sodium (Lovenox 40mg Syringe) 40 mg Q24H SQ Last administered on 03/18/20at 12:51; Start 03/18/20 at 13:00; Stop 03/19/20 at 09:01; Status DC Atorvastatin Calcium (Lipitor) 10 mg QHS PO Last administered on 03/22/20at 20:44; Start 03/18/20 at 21:00 Sterile Water (WATER for RESP) 1,000 ml CONT PRN INH VIA VAPOTHERM DEVICE Last administered on 03/19/20at 00:00; Start 03/19/20 at 00:00 Enoxaparin Sodium (Lovenox 40mg Syringe) 40 mg Q12HR SQ Last administered on 03/23/20at 08:52; Start 03/19/20 at 09:00; Stop 03/23/20 at 11:20; Status DC Amino Acids/ Glycerin/ Electrolytes 1,000 ml @ 80 mls/hr [id number] IV Last administered on 03/21/20at 13:27; Start 03/19/20 at 09:30; Stop 03/22/20 at 13:53; Status DC Dexmedetomidine HCl 400 mcg/ Sodium Chloride 100 ml @ 4.46 mls/hr CONT PRN IV PER PROTOCOL Last administered on 03/23/20at 09:06; Start 03/19/20 at 13:30 Sodium Chloride 500 ml @ 500 mls/hr 1X PRN PRN IV SEE COMMENTS Last administered on 03/23/20at 04:57; Start 03/19/20 at 13:30 Atropine Sulfate (ATROPINE 0.5mg SYRINGE) 0.5 mg PRN Q5MIN PRN IV SEE COMMENTS; Start 03/19/20 at 13:30 Lactobacillus Rhamnosus (Culturelle) 1 cap BID PO Last administered on 03/23/20a t 08:52; Start 03/19/20 at 21:00 Guaifenesin (MUCINEX ER with DM) 1 tab BID PO Last administered on 03/21/20at 07:56; Start 03/19/20 at 22:00; Stop 03/22/20 at 20:47; Status DC Guaifenesin (Robitussin) 200 mg PRN Q6HRS PRN PO COUGH- 1ST CHOICE Last adminis tered on 03/21/20at 12:53; Start 03/20/20 at 23:45 Benzonatate (Tessalon Perle) 100 mg PRN TID PRN PO Cough Last administered on 03/21/20at 12:44; Start 03/20/20 at 23:45 Ascorbic Acid (Vitamin C) 500 mg DAILY PO Last administered on 03/23/20at 08:53; Start 03/22/20 at 09:00 Saliva Substitute (Biotene Moisturizing Mouth) 2 spray PRN Q15MIN PRN PO DRY MOUTH Last administered on 03/21/20at 17:36; Start 03/21/20 at 16:00 Propofol 0 ml @ As Directed STK-MED ONCE IV ; Start 03/22/20 at 10:01; Stop 03/22/20 at 10:01; Status DC Succinylcholine Chloride (Anectine) 200 mg STK-MED ONCE .ROUTE ; Start 03/22/20 at 10:01; Stop 03/22/20 at 10:02; Status DC Etomidate (Amidate) 20 mg STK-MED ONCE IV ; Start 03/22/20 at 10:03; Stop 03/22/20 at 10:03; Status DC Succinylcholine Chloride (Anectine) 100 mg 1X ONCE IV Last administered on 03/22/20at 10:18; Start 03/22/20 at 10:15; Stop 03/22/20 at 10:16; Status DC Etomidate (Amidate) 12 mg 1X ONCE IV Last administered on 03/22/20at 10:19; Start 03/22/20 at 10:15; Stop 03/22/20 at 10:16; Status DC Fentanyl Citrate 30 ml @ 0 mls/hr CONT PRN IV SEE PROTOCOL Last administered on 03/23/20at 12:32; Start 03/22/20 at 10:15 Propofol 100 ml @ 0 mls/hr CONT PRN IV PER PROTOCOL; Start 03/22/20 at 10:15 Midazolam HCl 100 ml @ 0 mls/hr CONT PRN IV SEE PROTOCOL Last administered on 03/23/20at 12:31; Start 03/22/20 at 10:15 Midazolam HCl (Versed) 5 mg 1X ONCE IV Last administered on 03/22/20at 10:19; Start 03/22/20 at 10:15; Stop 03/22/20 at 10:16; Status DC Vecuronium [place] (Norcuron Bolus) 10 mg STK-MED ONCE IV ; Start 03/22/20 at 10:49; Stop 03/22/20 at 10:49; Status DC Vecuronium [place] (Norcuron Bolus) 6 mg 1X ONCE IV Last administered on 03/22/20at 11:20; Start 03/22/20 at 10:15; Stop 03/22/20 at 10:53; Status DC Vecuronium [place] (Norcuron Bolus) 10 mg PRN Q4HRS PRN IV NEEDED FOR SEDATION Last administered on 03/23/20at 02:45; Start 03/22/20 at 11:00 Furosemide (Lasix) 40 mg 1X ONCE IVP Last administered on 03/22/20at 12:24; Start 03/22/20 at 11:45; Stop 03/22/20 at 11:48; Status DC Piperacillin Sod/ Tazobactam Sod (Zosyn Per Pharmacy) 1 each PRN DAILY PRN MC SEE COMMENTS; Start 03/22/20 at 11:45 Sodium Bicarbonate (Sodium Bicarb Adult 8.4% Syr) 50 meq 1X ONCE IV Last administered on 03/22/20at 12:23; Start 03/22/20 at 11:45; Stop 03/22/20 at 11:50; Status DC Piperacillin Sod/ Tazobactam Sod 4.5 gm/Sodium Chloride 100 ml @ 200 mls/hr Q6HRS IV Last administered on 03/23/20at 12:35; Start 03/22/20 at 12:00 Norepinephrine Bitartrate 8 mg/ Dextrose 258 ml @ 18.015 mls/ hr CONT PRN IV PER PROTOCOL Last administered on 03/23/20at 01:43; Start 03/22/20 at 16:30 Sodium Bicarbonate (Sodium Bicarb Adult 8.4% Syr) 50 meq 1X ONCE IV Last administered on 03/23/20at 11:27; Start 03/23/20 at 10:45; Stop 03/23/20 at 10:46; Status DC Heparin Sodium/ Dextrose 250 ml @ 14.896 mls/ hr CONT PRN IV PER PROTOCOL Last administered on 03/23/20at 12:34; Start 03/23/20 at 11:15 Heparin Sodium (Porcine) (Heparin Sodium) 2,800 unit PRN Q6HRS PRN IV FOR UFH LEVEL LESS THAN 0.2 Last administered on 03/23/20at 12:33; Start 03/23/20 at 11:15 Heparin Sodium (Porcine) (Heparin Sodium) 1,400 unit PRN Q6HRS PRN IV FOR UFH LEVEL 0.2 - 0.29; Start 03/23/20 at 11:15 Propofol (Diprivan) 1,000 mg STK-MED ONCE IV ; Start 03/22/20 at 10:00; Stop 03/23/20 at 12:17; Status DC Info (Anti-Coagulation Monitoring By Pharmacy) 1 each PRN DAILY PRN MC SEE COMMENTS Last administered on 03/23/20at 12:34; Start 03/23/20 at 12:45 Famotidine (Pepcid Vial) 20 mg BID IVP ; Start 03/23/20 at 21:00 Allergies Allergies: Coded Allergies: No Known Drug Allergies (Unverified , 03/17/20) ROS Review of System UNABLE TO OBTAIN Physical Exam General: Other (INTUBATED) HEENT: Atraumatic, PERRLA Lungs: Other (DECREASED AIRFLOW THROUGHOUT) Heart: Regular rate Abdomen: Normal bowel sounds, Soft, No tenderness Extremities: No cyanosis Neuro: Other (SEDATED) Psych/Mental Status: Other (SEDATED) MUSCULOSKELETAL: No joint tenderness, No deformity, No swelling Vitals VITALS Vital Signs Date Time Temp Pulse Resp B/P (MAP) Pulse Ox O2 Delivery O2 Flow Rate FiO2 03/23/20 16:35 100 Ventilator 03/23/20 15:00 108 30 143/64 (90) 03/23/20 13:02 40.0 03/23/20 12:00 98.5 98.5 Labs Labs Laboratory Tests Test 03/22/20 04:45 03/22/20 08:15 03/22/20 09:00 03/22/20 11:00 O2 Saturation 85 % (92-99) 82 % (92-99) 69 % (92-99) Arterial Blood pH 7.36 (7.35-7.45) 7.42 (7.35-7.45) 7.14 (7.35-7.45) Arterial Blood pCO2 at Patient Temp 37 mmHg (35-46) 35 mmHg (35-46) 71 mmHg (35-46) Arterial Blood pO2 at Patient Temp 52 mmHg (65-108) 46 mmHg (65-108) 46 mmHg (65-108) Arterial Blood HCO3 20 mmol/L (21-28) 22 mmol/L (21-28) 24 mmol/L (21-28) Arterial Blood Base Excess -5 mmol/L (-3-3) -2 mmol/L (-3-3) -8 mmol/L (-3-3) FiO2 100 100 White Blood Count 24.5 x10^3/uL (4.0-11.0) Red Blood Count 5.16 x10^6/uL (4.30-5.70) Hemoglobin 15.8 g/dL (13.0-17.5) Hematocrit 47.6 % (39.0-53.0) Mean Corpuscular Volume 92 fL (79-100) Mean Corpuscular Hemoglobin 31 pg (25-35) Mean Corpuscular Hemoglobin Concent 33 g/dL (31-37) Red Cell Distribution Width 12.9 % (11.5-14.5) Platelet Count 281 x10^3/uL (140-400) Neutrophils (%) (Auto) 90 % (31-73) Lymphocytes (%) (Auto) 2 % (24-48) Monocytes (%) (Auto) 7 % (0-9) Eosinophils (%) (Auto) 0 % (0-3) Basophils (%) (Auto) 0 % (0-3) Neutrophils # (Auto) 22.1 x10^3/uL (1.8-7.7) Lymphocytes # (Auto) 0.6 x10^3/uL (1.0-4.8) Monocytes # (Auto) 1.8 x10^3/uL (0.0-1.1) Eosinophils # (Auto) 0.0 x10^3/uL (0.0-0.7) Basophils # (Auto) 0.0 x10^3/uL (0.0-0.2) Sodium Level 142 mmol/L (136-145) Potassium Level 4.6 mmol/L (3.5-5.1) Chloride Level 107 mmol/L (98-107) Carbon Dioxide Level 23 mmol/L (21-32) Anion Gap 12 (6-14) Blood Urea Nitrogen 27 mg/dL (8-26) Creatinine 1.0 mg/dL (0.7-1.3) Estimated GFR (Cockcroft-Gault) 73.0 Glucose Level 111 mg/dL (70-99) Calcium Level 8.6 mg/dL (8.5-10.1) Oxyhemoglobin 68.9 % Methemoglobin 0.2 % (0.0-1.9) Carbon Monoxide, Quantitative 0.4 % (0.0-1.9) Test 03/22/20 16:15 03/23/20 05:40 03/23/20 06:30 03/23/20 08:15 O2 Saturation 93 % (92-99) 99 % (92-99) Arterial Blood pH 7.22 (7.35-7.45) 7.21 (7.35-7.45) Arterial Blood pCO2 at Patient Temp 58 mmHg (35-46) 62 mmHg (35-46) Arterial Blood pO2 at Patient Temp 76 mmHg (65-108) 186 mmHg (65-108) Arterial Blood HCO3 23 mmol/L (21-28) 24 mmol/L (21-28) Arterial Blood Base Excess -5 mmol/L (-3-3) -5 mmol/L (-3-3) FiO2 100 100 D-Dimer (Nadia) > 20.00 ug/mlFEU Magnesium Level 2.4 mg/dL (1.8-2.4) Ferritin 2249 ng/mL (26-388) Lactate Dehydrogenase 556 U/L (85-227) Creatine Kinase 1180 U/L (39-308) VH-Myl-Z-Type Natriuretic Peptide 1747 pg/mL (0-124) Sodium Level 141 mmol/L (136-145) Potassium Level 5.3 mmol/L (3.5-5.1) Chloride Level 109 mmol/L (98-107) Carbon Dioxide Level 26 mmol/L (21-32) Anion Gap 6 (6-14) Blood Urea Nitrogen 40 mg/dL (8-26) Creatinine 1.4 mg/dL (0.7-1.3) Estimated GFR (Cockcroft-Gault) 49.5 Glucose Level 227 mg/dL (70-99) Calcium Level 7.7 mg/dL (8.5-10.1) Laboratory Tests Test 03/23/20 05:40 03/23/20 06:30 03/23/20 08:15 D-Dimer (Nadia) > 20.00 ug/mlFEU Magnesium Level 2.4 mg/dL (1.8-2.4) Ferritin 2249 ng/mL (26-388) Lactate Dehydrogenase 556 U/L (85-227) Creatine Kinase 1180 U/L (39-308) XE-Pbh-C-Type Natriuretic Peptide 1747 pg/mL (0-124) Sodium Level 141 mmol/L (136-145) Potassium Level 5.3 mmol/L (3.5-5.1) Chloride Level 109 mmol/L (98-107) Carbon Dioxide Level 26 mmol/L (21-32) Anion Gap 6 (6-14) Blood Urea Nitrogen 40 mg/dL (8-26) Creatinine 1.4 mg/dL (0.7-1.3) Estimated GFR (Cockcroft-Gault) 49.5 Glucose Level 227 mg/dL (70-99) Calcium Level 7.7 mg/dL (8.5-10.1) O2 Saturation 99 % (92-99) Arterial Blood pH 7.21 (7.35-7.45) Arterial Blood pCO2 at Patient Temp 62 mmHg (35-46) Arterial Blood pO2 at Patient Temp 186 mmHg (65-108) Arterial Blood HCO3 24 mmol/L (21-28) Arterial Blood Base Excess -5 mmol/L (-3-3) FiO2 100 Images Images XR CHEST 1V History: Reason: S/P PICC placement / Spl. Instructions: / History: Comparison: March 22, 2020. 10:16 AM Findings: Interval placement left PICC with tip projecting over the cavoatrial junction. Diffuse interstitial and alveolar opacities, decreased compared to prior. No pleural effusion. No pneumothorax. Unchanged heart size. Stable endotracheal tube. Stable enteric tube with tip projecting over the proximal stomach and side port within the distal esophagus. Impression: 1. Interval placement left PICC. 2. Enteric tube with tip projecting over the proximal stomach and side port within the distal esophagus. Consider advancement. 3. Diffuse interstitial and alveolar opacities, decreased compared to prior. Assessment/Plan Assessment/Plan IMP MICHAEL WITH CR OF 1.4 AND OLIGURIA ACUTE RESP FAILURE NSTEMI ETOH ABUSE COVID 19 PNEUMONIA SHOCK SEPSIS THROMBOGENIC STATE HYPERKALEMIA MET AND RESP ACIDOSIS WITH ACIDEMIA HYPERKALEMIA PLAN HYDRATION VENT SUPPORT HCO3 NEEDED PRESSORS NEEDED ANTIBIOTICS POOR PROGNOSIS MAY NEED DIALYSIS ANTICOAGULATION D/W DR STOUT WILL FOLLOW ART DAWKINS MD Mar 23, 2020 17:07
[2020-03-23] MEDS: FAMOTIDINE 20 MG/2 ML VIAL IVP SCH (20:34)
[2020-03-23] MEDS: ATORVASTATIN CALCIUM 10 MG TABLET. PO SCH (20:34)
[2020-03-24] VITALS (26 sets, daily range): BP systolic 94–156; BP diastolic 46–69
[2020-03-24] MEDS: MIDAZOLAM 100mg/100ml NS BAG 100 ML IV PRN ×3 (01:58→20:41)
[2020-03-24] MEDS: DEXMEDETOMIDINE 400 MCG in IV NORMAL SALINE 100ML 96 ML IV PRN ×6 (02:27→22:37)
[2020-03-24] MEDS: ACETAMINOPHEN 325 MG TABLET. PO PRN ×2 (04:29→08:02)
[2020-03-24] MEDS: PIPERACILLIN/TAZOBACTAM 4.5 GM in IV NORMAL SALINE 100ML 100 ML IV SCH ×3 (05:35→17:29)
[2020-03-24] MEDS: LACTOBACILLUS RHAMNOSUS GG 1 CAPSULE. PO SCH ×2 (08:02→20:44)
[2020-03-24] MEDS: CHOLECALCIFEROL (VITAMIN D3) 5,000 UNIT CAPSULE PO SCH (08:02)
[2020-03-24] MEDS: ASPIRIN ENTERIC COATED 81 MG TABLET.DR. PO SCH (08:02)
[2020-03-24] MEDS: DEXAMETHASONE SOD PHOS 4 MG/ML VIAL IVP SCH (08:02)
[2020-03-24] MEDS: ASCORBIC ACID 500 MG TABLET PO SCH (08:02)
[2020-03-24] MEDS: FAMOTIDINE 20 MG/2 ML VIAL IVP SCH (08:03)
[2020-03-24] MEDS: DOXYCYCLINE HYCLATE 100 MG in IV DEXTROSE 5% 100ML 100 ML IV SCH ×2 (08:04→20:44)
--- NOTE | 2020-03-24 08:25 | PDOC ---
PULMONARY PROGRESS NOTES DATE: 03/24/20 TIME: 08:25 Subjective Intubated 03/22 Remains on ventilatory support, FiO2 of 80% and a PEEP of 10 Mild asynchrony on examination Vitals Vital Signs Date Time Temp Pulse Resp B/P (MAP) Pulse Ox O2 Delivery O2 Flow Rate FiO2 03/24/20 07:45 92 Ventilator 03/24/20 06:00 84 34 100/48 (65) 03/24/20 04:00 100.8 100.8 03/23/20 13:02 40.0 Comments visual exam done due to COVID-19 Ventilatory asynchrony hypoxia intubated/sedated no leg edema Labs Laboratory Tests Test 03/22/20 09:00 03/22/20 11:00 03/22/20 16:15 03/23/20 05:40 O2 Saturation 82 % (92-99) 69 % (92-99) 93 % (92-99) Arterial Blood pH 7.42 (7.35-7.45) 7.14 (7.35-7.45) 7.22 (7.35-7.45) Arterial Blood pCO2 at Patient Temp 35 mmHg (35-46) 71 mmHg (35-46) 58 mmHg (35-46) Arterial Blood pO2 at Patient Temp 46 mmHg (65-108) 46 mmHg (65-108) 76 mmHg (65-108) Arterial Blood HCO3 22 mmol/L (21-28) 24 mmol/L (21-28) 23 mmol/L (21-28) Arterial Blood Base Excess -2 mmol/L (-3-3) -8 mmol/L (-3-3) -5 mmol/L (-3-3) FiO2 100 100 Oxyhemoglobin 68.9 % Methemoglobin 0.2 % (0.0-1.9) Carbon Monoxide, Quantitative 0.4 % (0.0-1.9) D-Dimer (Nadia) > 20.00 ug/mlFEU Magnesium Level 2.4 mg/dL (1.8-2.4) Ferritin 2249 ng/mL (26-388) Lactate Dehydrogenase 556 U/L (85-227) Creatine Kinase 1180 U/L (39-308) YF-Rdf-A-Type Natriuretic Peptide 1747 pg/mL (0-124) Test 03/23/20 06:30 03/23/20 08:15 03/23/20 19:05 03/24/20 02:30 Sodium Level 141 mmol/L (136-145) Potassium Level 5.3 mmol/L (3.5-5.1) Chloride Level 109 mmol/L (98-107) Carbon Dioxide Level 26 mmol/L (21-32) Anion Gap 6 (6-14) Blood Urea Nitrogen 40 mg/dL (8-26) Creatinine 1.4 mg/dL (0.7-1.3) Estimated GFR (Cockcroft-Gault) 49.5 Glucose Level 227 mg/dL (70-99) Calcium Level 7.7 mg/dL (8.5-10.1) O2 Saturation 99 % (92-99) Arterial Blood pH 7.21 (7.35-7.45) Arterial Blood pCO2 at Patient Temp 62 mmHg (35-46) Arterial Blood pO2 at Patient Temp 186 mmHg (65-108) Arterial Blood HCO3 24 mmol/L (21-28) Arterial Blood Base Excess -5 mmol/L (-3-3) FiO2 100 Heparin Anti-Xa Act, Unfractionated > 1.10 IU/mL (0.30-0.70) 0.96 IU/mL (0.30-0.70) Laboratory Tests Test 03/23/20 19:05 03/24/20 02:30 Heparin Anti-Xa Act, Unfractionated > 1.10 IU/mL (0.30-0.70) 0.96 IU/mL (0.30-0.70) Comments CXR 03/22 IMPRESSION: diffuse interstitial infiltrates Impression . IMPRESSION: 1. Acute hypoxic respiratory failure due to COVID-19 viral pneumonia/ ARDS/ALI. -Intubated 03/22 with worsening respiratory distress,hypoxia now in shock, multi-system organ failure, markedly elevated D-dIMER 2. [id number]-atjvpysrl myocardial infarction/ Afib 3. History of alcoholism. 4. Moderate to severe protein-calorie malnutrition. 5. Abnormal troponin with non-ST myocardial infarction. 6. COVID- positive 7. Shock, viral sepsis 8. MICHAEL due to shock/ COVID -19 9. Markedly elevated D-Dimer. need to fully anti-coagulate due to high risk for VTE Plan . RECOMMENDATIONS: Continue current vent support A/C mode and one-to-one ratio, intubated on 03/22/20------ FiO2 80% and a PEEP of 10 Follow CXR/ABG --increase FiO2 to 90% COVID-19 positive Continue vasopressors as needed, currently off Follow nephrology recommendations Continue full 10 day course of steroids, started on March 19, 2020 Patient is completed full course of remdesivir Continue abx, Follow cardiology recs Continue full dose heparin Continue tube feeding for nutritional support DVT/GI PPX D/W RN and RT d/w daughter. Prognosis explained. Full code Critical Care Time [id number] AM PRINCE STACY MD Mar 24, 2020 08:25
[2020-03-24 09:06] LABS: BASE EXCESS ABG -4 mmol/L (-3-3); HCO3 ABG 23 mmol/L (21-28); PCO2 ABG 51 mmHg (35-46); SAT O2 ABG 85 % (92-99)
[2020-03-24 09:16] LABS: HEMATOCRIT 37.6 % (39.0-53.0); HEMOGLOBIN 12.5 g/dL (13.0-17.5); RED BLOOD COUNT 4.01 x10^6/uL (4.30-5.70); RED CELL DISTRIBUTION WIDTH 13.2 % (11.5-14.5); WHITE BLOOD COUNT 21.3 x10^3/uL (4.0-11.0)
[2020-03-24 09:51] LABS: FIO2 ABG 80/VENT; PO2 ABG 49 mmHg (65-108)
[2020-03-24 10:10] LABS: ALBUMIN 1.5 g/dL (3.4-5.0); ALBUMIN/GLOBULIN RATIO 0.4 (1.0-1.7); CALCIUM 7.8 mg/dL (8.5-10.1); CREATININE 1.6 mg/dL (0.7-1.3); GFR 42.5; POTASSIUM 5.1 mmol/L (3.5-5.1); TOTAL BILIRUBIN 0.6 mg/dL (0.2-1.0); TOTAL PROTEIN 4.9 g/dL (6.4-8.2)
[2020-03-24] MEDS: HEPARIN 25,000UTS/250ML PREMIX 250 ML IV PRN (10:13)
[2020-03-24] MEDS: VECURONIUM BOLUS 10 MG VIAL. IV PRN ×2 (10:46→13:21)
--- NOTE | 2020-03-24 11:21 | PDOC ---
Renal-Progress Notes Subjective Notes Notes ON THE VENT History of Present Illness Hx of present illness STABLE Vitals Vitals Vital Signs Date Time Temp Pulse Resp B/P (MAP) Pulse Ox O2 Delivery O2 Flow Rate FiO2 03/24/20 09:44 92 40.0 03/24/20 08:00 Mechanical Ventilator 03/24/20 06:00 84 34 100/48 (65) 03/24/20 04:00 100.8 100.8 Weight Weight [ ] I.O. Intake and Output Intake and Output 03/24/20 07:00 Intake Total 4872.7 ml Output Total 1950 ml Balance 2922.7 ml IV Total 2235.7 ml Tube Feeding 2209 ml Other 428 ml Output Urine Total 1950 ml Gastric Drainage Total 0 ml Labs Labs Laboratory Tests Test 03/23/20 19:05 03/24/20 02:30 03/24/20 08:00 03/24/20 09:00 Heparin Anti-Xa Act, Unfractionated > 1.10 IU/mL (0.30-0.70) 0.96 IU/mL (0.30-0.70) 0.60 IU/mL (0.30-0.70) O2 Saturation 85 % (92-99) Arterial Blood pH 7.28 (7.35-7.45) Arterial Blood pCO2 at Patient Temp 51 mmHg (35-46) Arterial Blood pO2 at Patient Temp 49 mmHg (65-108) Arterial Blood HCO3 23 mmol/L (21-28) Arterial Blood Base Excess -4 mmol/L (-3-3) FiO2 80/vent White Blood Count 21.3 x10^3/uL (4.0-11.0) Red Blood Count 4.01 x10^6/uL (4.30-5.70) Hemoglobin 12.5 g/dL (13.0-17.5) Hematocrit 37.6 % (39.0-53.0) Mean Corpuscular Volume 94 fL (79-100) Mean Corpuscular Hemoglobin 31 pg (25-35) Mean Corpuscular Hemoglobin Concent 33 g/dL (31-37) Red Cell Distribution Width 13.2 % (11.5-14.5) Platelet Count 309 x10^3/uL (140-400) Sodium Level 146 mmol/L (136-145) Potassium Level 5.1 mmol/L (3.5-5.1) Chloride Level 111 mmol/L (98-107) Carbon Dioxide Level 28 mmol/L (21-32) Anion Gap 7 (6-14) Blood Urea Nitrogen 49 mg/dL (8-26) Creatinine 1.6 mg/dL (0.7-1.3) Estimated GFR (Cockcroft-Gault) 42.5 BUN/Creatinine Ratio 31 (6-20) Glucose Level 226 mg/dL (70-99) Calcium Level 7.8 mg/dL (8.5-10.1) Total Bilirubin 0.6 mg/dL (0.2-1.0) Aspartate Amino Transf (AST/SGOT) 82 U/L (15-37) Alanine Aminotransferase (ALT/SGPT) 56 U/L (16-63) Alkaline Phosphatase 67 U/L (46-116) Total Protein 4.9 g/dL (6.4-8.2) Albumin 1.5 g/dL (3.4-5.0) Albumin/Globulin Ratio 0.4 (1.0-1.7) Review of Systems Constitutional: yes: unresponsive Physical Exam General Appearance: other (MIN AND VISUAL DONE DUE TO COVID 19) Neurology: alert, follow commands Musculoskeletal: Osteoarthritis Assessment Assessment IMP MICHAEL WITH CR OF 1.6 AND OLIGURIA ACUTE RESP FAILURE NSTEMI ETOH ABUSE COVID 19 PNEUMONIA SHOCK SEPSIS THROMBOGENIC STATE HYPERKALEMIA-BETTER MET AND RESP ACIDOSIS WITH ACIDEMIA HYPERNATREMIA MALNUTRITION PLAN HYDRATION VENT SUPPORT HCO3 NEEDED PRESSORS NEEDED ANTIBIOTICS POOR PROGNOSIS ANTICOAGULATION TF TO CONTINUE WATER FLUSHES D/W DR STOUT WILL FOLLOW ART DAWKINS MD Mar 24, 2020 11:21
--- NOTE | 2020-03-24 12:59 | PDOC ---
[employer] PROGRESS NOTE Date of Service DOS: DATE: 03/24/20 TIME: 12:58 Chief Complaint Chief Complaint NSTEMI COVID-19 Acute hypoxic respiratory failure New onset atrial fibrillation Malnutrition History of Present Illness History of Present Illness 03/24/2020 Patient seen and examined in the [place] [address] ICU He remains intubated AC//500/90 percent with 10 of PEEP Discussed with RN She is having problems sedating him so tried some norocuronium but that is not working the greatest either as he still overbreathing the vent He is on a heparin drip Sedated with Versed Levophed and fentanyl and dex Remains extremely critically ill 03/23/2020 Patient seen and examined in the [place] [address] ICU Discussed with RN Chart reviewed He had to be intubated yesterday Assist-control//1 100% FiO2 with 12 of PEEP His D-dimer is greater than 20 I suspect this is Covid 19 related He had a temperature last night of 103 is down this morning On Levophed and Zosyn Sedated with fentanyl Versed and Dex He is extremely critically ill 03/22/2020 Patient seen and examined in the [place] [address] ICU He is on BiPAP with 100% FiO2 but barely satting in the mid 80s Appears to be wearing down Has crackles in all lung renee Sedated with a little bit of Dex Discussed with RN Chart reviewed He is critically ill suspect he might need to be intubated possibly? 03/21/2020 Patient seen and examined on the [place] [address] unit ICU He is on BiPAP with 100% oxygen Sedated with DEX Getting IV TPN On IV doxycycline Discussed with RN Chart reviewed He remains critically ill Patient is a 74-year-old male who presents as a transfer from [facility] for altered mental status and NSTEMI. Apparently he did not present to work today and police were contacted to perform a wellness visit. Upon arrival he was found in his recliner surrounded by several bottles of beer. Patient reportedly stated to EMS that he had not been feeling well for the past 24 hours, but did not report any symptoms besides generalized fatigue. He denies any fever, chest pain, shortness of breath, cough, sick contacts, or known COVID-19 exposure. His initial troponin at [facility] was noted to be 0.933, with repeat 1.475. He was placed on BiPAP due to acute respiratory failure, and heparin drip. He was transferred to [facility] for cardiology consultation and further medical management. Upon arrival to [facility] several runs of Aníbal treviño were noted on telemetry, and according to patient's family they deny any known knowledge of history of atrial fibrillation. 03/20: Seen in [place] [address] ICU. Currently breathing on BiPAP, FiO2 100%. He is afebrile, denies chest pain. No other complaints today. Continue with steroi ds, antibiotics, remdesivir day 05/13. 03/19: Moved into the ICU overnight due to concern of worsening shortness of breath. Currently breathing on 40 L Vapotherm. He is afebrile, denies chest pain. Continue with steroids, antibiotics, remdesivir day 04/15. Discussed with RN. 03/18: Patient seen and evaluated. Lab results taken at [facility] showing he is COVID-19 positive. Afebrile, breathing on BiPAP at FiO2 100%. ABG obtained today shows pH 7.45, PO2 74, PCO2 39. WBC 10.1. Pro Tani elevated at 4.22. Repeat chest x-ray still stable bilateral diffuse infiltrates. Provide antibiotic coverage with Rocephin and doxycycline. Pulmonology has been consulted due to respiratory distress on BiPAP. Will initiate steroids, remdesivir. Continue supportive care. Vitals/I&O Vitals/I&O: Vital Signs Date Time Temp Pulse Resp B/P (MAP) Pulse Ox O2 Delivery O2 Flow Rate FiO2 03/24/20 12:00 Mechanical Ventilator 03/24/20 12:00 98.6 99 30 118/50 (72) 85 98.6 03/24/20 09:44 40.0 I & O 03/23/20 03/23/20 03/24/20 15:00 23:00 07:00 Intake Total 400 ml 2187 ml 2285.7 ml Output Total 500 ml 925 ml 525 ml Balance -100 ml 1262 ml 1760.7 ml Physical Exam General: Other (INTUBATED) Heart: Regular rate Abdomen: Normal bowel sounds, Soft, No tenderness Extremities: No cyanosis Skin: No rashes, No breakdown Labs Labs: Laboratory Tests Test 03/23/20 19:05 03/24/20 02:30 03/24/20 08:00 03/24/20 09:00 Heparin Anti-Xa Act, Unfractionated > 1.10 IU/mL (0.30-0.70) 0.96 IU/mL (0.30-0.70) 0.60 IU/mL (0.30-0.70) O2 Saturation 85 % (92-99) Arterial Blood pH 7.28 (7.35-7.45) Arterial Blood pCO2 at Patient Temp 51 mmHg (35-46) Arterial Blood pO2 at Patient Temp 49 mmHg (65-108) Arterial Blood HCO3 23 mmol/L (21-28) Arterial Blood Base Excess -4 mmol/L (-3-3) FiO2 80/vent White Blood Count 21.3 x10^3/uL (4.0-11.0) Red Blood Count 4.01 x10^6/uL (4.30-5.70) Hemoglobin 12.5 g/dL (13.0-17.5) Hematocrit 37.6 % (39.0-53.0) Mean Corpuscular Volume 94 fL (79-100) Mean Corpuscular Hemoglobin 31 pg (25-35) Mean Corpuscular Hemoglobin Concent 33 g/dL (31-37) Red Cell Distribution Width 13.2 % (11.5-14.5) Platelet Count 309 x10^3/uL (140-400) Sodium Level 146 mmol/L (136-145) Potassium Level 5.1 mmol/L (3.5-5.1) Chloride Level 111 mmol/L (98-107) Carbon Dioxide Level 28 mmol/L (21-32) Anion Gap 7 (6-14) Blood Urea Nitrogen 49 mg/dL (8-26) Creatinine 1.6 mg/dL (0.7-1.3) Estimated GFR (Cockcroft-Gault) 42.5 BUN/Creatinine Ratio 31 (6-20) Glucose Level 226 mg/dL (70-99) Calcium Level 7.8 mg/dL (8.5-10.1) Total Bilirubin 0.6 mg/dL (0.2-1.0) Aspartate Amino Transf (AST/SGOT) 82 U/L (15-37) Alanine Aminotransferase (ALT/SGPT) 56 U/L (16-63) Alkaline Phosphatase 67 U/L (46-116) Total Protein 4.9 g/dL (6.4-8.2) Albumin 1.5 g/dL (3.4-5.0) Albumin/Globulin Ratio 0.4 (1.0-1.7) Assessment and Plan Assessmemt and Plan NSTEMI Acute hypoxic respiratory failure New onset atrial fibrillation COVID-19 PUI Malnutrition Plan: ICU monitoring Vent weaning IV antibiotics As needed paralytics Continue sedation with Versed fentanyl and Dex Await further pulmonary input Covid protocol Cardiology following Continue heparin drip BiPAP Anticipate ischemic cardiac work-up when his COVID-19 results are negative Chest x-ray obtained at [facility] showed multifocal ill-defined opacities bilaterally, concerning for viral pneumonia. FEN - Cardiac diet PPX - Heparin FULL CODE Prognosis guarded possibly terminal? Appreciate subspecialist input CC time 31minute Comment Review of Relevant I have reviewed the following items ángela (where applicable) has been applied. Medications: Current Medications Medications (Trade) Dose Ordered Sig/Brissa Route PRN Reason Start Time Stop Time Status Last Admin Dose Admin Famotidine (Pepcid Vial) 20 mg BID IVP 03/23/20 21:00 03/24/20 08:03 Justifications for Admission General Conditions Poss tachycardia?: No Altered mental status?: Yes Other Justification NSTEMI, new onset A. fib, respiratory failure with hypoxia VAL WOOD III DO Mar 24, 2020 12:59
[2020-03-24] MEDS: fentaNYL HIGH DOSE PCA 55 ML IV PRN (16:01)
[2020-03-24] MEDS: ATORVASTATIN CALCIUM 10 MG TABLET. PO SCH (20:44)
[2020-03-25] VITALS (29 sets, daily range): BP systolic 78–143; BP diastolic 49–79
[2020-03-25] MEDS: PIPERACILLIN/TAZOBACTAM 4.5 GM in IV NORMAL SALINE 100ML 100 ML IV SCH ×2 (00:03→05:45)
[2020-03-25] MEDS: DEXMEDETOMIDINE 400 MCG in IV NORMAL SALINE 100ML 96 ML IV PRN ×5 (03:09→22:22)
--- NOTE | 2020-03-25 04:38 | RAD ---
EXAM: AP View of the chest DATE: 03/25/2020 3:26 AM INDICATION: Reason: vent/covid 114 / Spl. Instructions: / History: COMPARISON: No Prior FINDINGS: ET tube tip terminates approximately 5 cm above the deep. Right upper extremity PICC tip projects o santi the mid SVC. Enteric tube extends beyond the diaphragm tip is not visualized. Accounting for differences in technique/projection including patient rotation, there is mildly progre ssed right midlung and left lung base airspace opacities. No pleural effusion or pneumothorax. IMPRESSION: Interval progression of bilateral parenchymal airspace opacities Support lines/tubes as above. Electronically signed by: Dmitry Cruz MD (03/25/2020 4:36 AM) GERARD
[2020-03-25] MEDS: MIDAZOLAM 100mg/100ml NS BAG 100 ML IV PRN ×2 (05:56→16:00)
[2020-03-25 06:07] LABS: CALCIUM 8.1 mg/dL (8.5-10.1); GFR 32.8
[2020-03-25 06:09] LABS: POTASSIUM 5.8 mmol/L (3.5-5.1)
[2020-03-25 06:55] LABS: HEMATOCRIT 38.3 % (39.0-53.0); HEMOGLOBIN 12.2 g/dL (13.0-17.5); RED BLOOD COUNT 4.04 x10^6/uL (4.30-5.70); RED CELL DISTRIBUTION WIDTH 13.4 % (11.5-14.5); WHITE BLOOD COUNT 20.6 x10^3/uL (4.0-11.0)
[2020-03-25] MEDS: ASPIRIN ENTERIC COATED 81 MG TABLET.DR. PO SCH (07:45)
[2020-03-25] MEDS: DEXAMETHASONE SOD PHOS 4 MG/ML VIAL IVP SCH (07:45)
[2020-03-25] MEDS: ASCORBIC ACID 500 MG TABLET PO SCH (07:45)
[2020-03-25] MEDS: LACTOBACILLUS RHAMNOSUS GG 1 CAPSULE. PO SCH ×2 (07:45→21:25)
[2020-03-25] MEDS: CHOLECALCIFEROL (VITAMIN D3) 5,000 UNIT CAPSULE PO SCH (07:45)
[2020-03-25] MEDS: DOXYCYCLINE HYCLATE 100 MG in IV DEXTROSE 5% 100ML 100 ML IV SCH ×2 (07:46→21:26)
[2020-03-25] MEDS: FAMOTIDINE 20 MG/2 ML VIAL IVP SCH (07:47)
[2020-03-25] MEDS: VECURONIUM BOLUS 10 MG VIAL. IV PRN (08:02)
[2020-03-25 08:18] LABS: BASE EXCESS ABG -5 mmol/L (-3-3); HCO3 ABG 24 mmol/L (21-28); PO2 ABG 194 mmHg (65-108); SAT O2 ABG 99 % (92-99)
[2020-03-25 08:20] LABS: CORRECTED PCO2 ABG 64 mmHg; CORRECTED PO2 ABG 196 mmHg
--- NOTE | 2020-03-25 08:43 | PDOC ---
PULMONARY PROGRESS NOTES DATE: 03/25/20 TIME: 08:43 Subjective Intubated 03/22 Remains on ventilatory support, FiO2 of 100% and a PEEP of 12 Low-grade fever overnight Vitals Vital Signs Date Time Temp Pulse Resp B/P (MAP) Pulse Ox O2 Delivery O2 Flow Rate FiO2 03/25/20 08:10 100 Ventilator 03/25/20 07:00 96 30 95/54 (68) 03/25/20 04:00 99.6 99.6 03/24/20 16:31 40.0 Comments visual exam done due to COVID-19 intubated/sedated no leg edema Labs Laboratory Tests Test 03/23/20 19:05 03/24/20 02:30 03/24/20 08:00 03/24/20 09:00 Heparin Anti-Xa Act, Unfractionated > 1.10 IU/mL (0.30-0.70) 0.96 IU/mL (0.30-0.70) 0.60 IU/mL (0.30-0.70) O2 Saturation 85 % (92-99) Arterial Blood pH 7.28 (7.35-7.45) Arterial Blood pCO2 at Patient Temp 51 mmHg (35-46) Arterial Blood pO2 at Patient Temp 49 mmHg (65-108) Arterial Blood HCO3 23 mmol/L (21-28) Arterial Blood Base Excess -4 mmol/L (-3-3) FiO2 80/vent White Blood Count 21.3 x10^3/uL (4.0-11.0) Red Blood Count 4.01 x10^6/uL (4.30-5.70) Hemoglobin 12.5 g/dL (13.0-17.5) Hematocrit 37.6 % (39.0-53.0) Mean Corpuscular Volume 94 fL (79-100) Mean Corpuscular Hemoglobin 31 pg (25-35) Mean Corpuscular Hemoglobin Concent 33 g/dL (31-37) Red Cell Distribution Width 13.2 % (11.5-14.5) Platelet Count 309 x10^3/uL (140-400) Sodium Level 146 mmol/L (136-145) Potassium Level 5.1 mmol/L (3.5-5.1) Chloride Level 111 mmol/L (98-107) Carbon Dioxide Level 28 mmol/L (21-32) Anion Gap 7 (6-14) Blood Urea Nitrogen 49 mg/dL (8-26) Creatinine 1.6 mg/dL (0.7-1.3) Estimated GFR (Cockcroft-Gault) 42.5 BUN/Creatinine Ratio 31 (6-20) Glucose Level 226 mg/dL (70-99) Calcium Level 7.8 mg/dL (8.5-10.1) Total Bilirubin 0.6 mg/dL (0.2-1.0) Aspartate Amino Transf (AST/SGOT) 82 U/L (15-37) Alanine Aminotransferase (ALT/SGPT) 56 U/L (16-63) Alkaline Phosphatase 67 U/L (46-116) Total Protein 4.9 g/dL (6.4-8.2) Albumin 1.5 g/dL (3.4-5.0) Albumin/Globulin Ratio 0.4 (1.0-1.7) Test 03/24/20 16:00 03/25/20 05:40 Heparin Anti-Xa Act, Unfractionated 0.47 IU/mL (0.30-0.70) 0.30 IU/mL (0.30-0.70) White Blood Count 20.6 x10^3/uL (4.0-11.0) Red Blood Count 4.04 x10^6/uL (4.30-5.70) Hemoglobin 12.2 g/dL (13.0-17.5) Hematocrit 38.3 % (39.0-53.0) Mean Corpuscular Volume 95 fL (79-100) Mean Corpuscular Hemoglobin 30 pg (25-35) Mean Corpuscular Hemoglobin Concent 32 g/dL (31-37) Red Cell Distribution Width 13.4 % (11.5-14.5) Platelet Count 360 x10^3/uL (140-400) Sodium Level 143 mmol/L (136-145) Potassium Level 5.8 mmol/L (3.5-5.1) Chloride Level 111 mmol/L (98-107) Carbon Dioxide Level 27 mmol/L (21-32) Anion Gap 5 (6-14) Blood Urea Nitrogen 64 mg/dL (8-26) Creatinine 2.0 mg/dL (0.7-1.3) Estimated GFR (Cockcroft-Gault) 32.8 Glucose Level 268 mg/dL (70-99) Calcium Level 8.1 mg/dL (8.5-10.1) Laboratory Tests Test 03/24/20 09:00 03/24/20 16:00 03/25/20 05:40 White Blood Count 21.3 x10^3/uL (4.0-11.0) 20.6 x10^3/uL (4.0-11.0) Red Blood Count 4.01 x10^6/uL (4.30-5.70) 4.04 x10^6/uL (4.30-5.70) Hemoglobin 12.5 g/dL (13.0-17.5) 12.2 g/dL (13.0-17.5) Hematocrit 37.6 % (39.0-53.0) 38.3 % (39.0-53.0) Mean Corpuscular Volume 94 fL (79-100) 95 fL (79-100) Mean Corpuscular Hemoglobin 31 pg (25-35) 30 pg (25-35) Mean Corpuscular Hemoglobin Concent 33 g/dL (31-37) 32 g/dL (31-37) Red Cell Distribution Width 13.2 % (11.5-14.5) 13.4 % (11.5-14.5) Platelet Count 309 x10^3/uL (140-400) 360 x10^3/uL (140-400) Heparin Anti-Xa Act, Unfractionated 0.60 IU/mL (0.30-0.70) 0.47 IU/mL (0.30-0.70) 0.30 IU/mL (0.30-0.70) Sodium Level 146 mmol/L (136-145) 143 mmol/L (136-145) Potassium Level 5.1 mmol/L (3.5-5.1) 5.8 mmol/L (3.5-5.1) Chloride Level 111 mmol/L (98-107) 111 mmol/L (98-107) Carbon Dioxide Level 28 mmol/L (21-32) 27 mmol/L (21-32) Anion Gap 7 (6-14) 5 (6-14) Blood Urea Nitrogen 49 mg/dL (8-26) 64 mg/dL (8-26) Creatinine 1.6 mg/dL (0.7-1.3) 2.0 mg/dL (0.7-1.3) Estimated GFR (Cockcroft-Gault) 42.5 32.8 BUN/Creatinine Ratio 31 (6-20) Glucose Level 226 mg/dL (70-99) 268 mg/dL (70-99) Calcium Level 7.8 mg/dL (8.5-10.1) 8.1 mg/dL (8.5-10.1) Total Bilirubin 0.6 mg/dL (0.2-1.0) Aspartate Amino Transf (AST/SGOT) 82 U/L (15-37) Alanine Aminotransferase (ALT/SGPT) 56 U/L (16-63) Alkaline Phosphatase 67 U/L (46-116) Total Protein 4.9 g/dL (6.4-8.2) Albumin 1.5 g/dL (3.4-5.0) Albumin/Globulin Ratio 0.4 (1.0-1.7) Comments CXR IMPRESSION: Interval progression of bilateral parenchymal airspace opacities Support lines/tubes as above. Impression . IMPRESSION: 1. Acute hypoxic respiratory failure due to COVID-19 viral pneumonia/ ARDS/ALI. -Intubated 03/22 with worsening respiratory distress,hypoxia now in shock, multi-system organ failure, markedly elevated D-dIMER 2. Rky-LV-sthwmuikh myocardial infarction/ Afib 3. History of alcoholism. 4. Moderate to severe protein-calorie malnutrition. 5. Abnormal troponin with non-ST myocardial infarction. 6. COVID- positive 7. Shock, viral sepsis 8. MICHAEL due to shock/ COVID -19 9. Markedly elevated D-Dimer. need to fully anti-coagulate due to high risk for VTE Plan . RECOMMENDATIONS: Continue current vent support A/C mode and one-to-one ratio, intubated on 03/22/20------ FiO2 100% and a PEEP of 12 Follow CXR/ABG --decrease FiO2 to 80% and PEEP to 10 COVID-19 positive Follow nephrology recommendations Continue full 10 day course of steroids, started on March 19, 2020 Patient is completed full course of remdesivir Continue abx, on Zosyn and doxycycline Follow cardiology recs Stop heparin as patient is reported to have jen red blood from ET tube, check hemoglobin stat, transfuse if less than 7.0 we will address the need for a nticoagulation Continue tube feeding for nutritional support DVT/GI PPX D/W RN and RT d/w daughter. Prognosis explained. Full code Critical Care Time [id number] AM PRINCE STACY MD Mar 25, 2020 08:43
[2020-03-25 08:53] LABS: PCO2 ABG 63 mmHg (35-46)
[2020-03-25] MEDS ORDERED: SODIUM BICARB ADULT 8.4% 50 MEQ/50 ML DISP.SYRIN. IV ONE (09:00)
[2020-03-25] MEDS ORDERED: DEXTROSE 50% 25 GM / 50ML DISP.SYRIN. IV PRN (09:00)
--- NOTE | 2020-03-25 10:46 | PDOC ---
[employer] PROGRESS NOTE Date of Service DOS: DATE: 03/25/20 TIME: 10:45 Chief Complaint Chief Complaint NSTEMI COVID-19 Acute hypoxic respiratory failure New onset atrial fibrillation Malnutrition History of Present Illness History of Present Illness 03/25/2020 Patient seen and examined in the [place] [address] ICU He remains intubated Assist-control/30/500/80 percent with 12 of PEEP Sedated with Versed fentanyl and Dex On heparin drip Also receiving IV doxy Discussed with RN Chart reviewed He remains critically ill 03/24/2020 Patient seen and examined in the [place] [address] ICU He remains intubated AC/30/500/90 percent with 10 of PEEP Discussed with RN She is having problems sedating him so tried some norocuronium but that is not working the greatest either as he still overbreathing the vent He is on a heparin drip Sedated with Versed Levophed and fentanyl and dex Remains extremely critically ill 03/23/2020 Patient seen and examined in the [place] [address] ICU Discussed with RN Chart reviewed He had to be intubated yesterday Assist-control//500/1 100% FiO2 with 12 of PEEP His D-dimer is greater than 20 I suspect this is Covid 19 related He had a temperature last night of 103 is down this morning On Levophed and Zosyn Sedated with fentanyl Versed and Dex He is extremely critically ill 03/22/2020 Patient seen and examined in the [place] [address] ICU He is on BiPAP with 100% FiO2 but barely satting in the mid 80s Appears to be wearing down Has crackles in all lung renee Sedated with a little bit of Dex Discussed with RN Chart reviewed He is critically ill suspect he might need to be intubated possibly? 03/21/2020 Patient seen and examined on the [place] [address] unit ICU He is on BiPAP with 100% oxygen Sedated with DEX Getting IV TPN On IV doxycycline Discussed with RN Chart reviewed He remains critically ill Patient is a 74-year-old male who presents as a transfer from [facility] for altered mental status and NSTEMI. Apparently he did not present to work today and police were contacted to perform a wellness visit. Upon arrival he was found in his recliner surrounded by several bottles of beer. Patient reportedly stated to EMS that he had not been feeling well for the past 24 hours, but did not report any symptoms besides generalized fatigue. He denies any fever, chest pain, shortness of breath, cough, sick contacts, or known COVID-19 exposure. His initial troponin at [facility] was noted to be 0.933, with repeat 1.475. He was placed on BiPAP due to acute respiratory failure, and heparin drip. He was transferred to [facility] for cardiology consultation and further medical management. Upon arrival to [facility] several runs of A. fib were noted on telemetry, and according to patient's family they deny any known knowledge of history of atrial fibrillation. 03/20: Seen in COVID19 ICU. Currently breathing on BiPAP, FiO2 100%. He is afebrile, denies chest pain. No other complaints today. Continue with steroids, antibiotics, remdesivir day 05/13. 03/19: Moved into the ICU overnight due to concern of worsening shortness of breath. Currently breathing on 40 L Vapotherm. He is afebrile, denies chest pain. Continue with steroids, antibiotics, remdesivir day 04/15. Discussed with RN. 03/18: Patient seen and evaluated. Lab results taken at [facility] showing he is COVID-19 positive. Afebrile, breathing on BiPAP at FiO2 100%. ABG obtained today shows pH 7.45, PO2 74, PCO2 39. WBC 10.1. Pro Tani elevated at 4.22. Repeat chest x-ray still stable bilateral diffuse infiltrates. Provide antibiotic coverage with Rocephin and doxycycline. Pulmonology has been consulted due to respiratory distress on BiPAP. Will initiate steroids, remdesivir. Continue supportive care. Vitals/I&O Vitals/I&O: Vital Signs Date Time Temp Pulse Resp B/P (MAP) Pulse Ox O2 Delivery O2 Flow Rate FiO2 03/25/20 10:00 81 30 91/50 (64) 80 Ventilator 03/25/20 08:00 99.3 99.3 03/24/20 16:31 40.0 I & O 03/24/20 03/24/20 03/25/20 15:00 23:00 07:00 Intake Total 200 ml 1506 ml 3197 ml Output Total 350 ml 875 ml 550 ml Balance -150 ml 631 ml 2647 ml Physical Exam General: Other (INTUBATED) Heart: Regular rate Abdomen: Normal bowel sounds, Soft, No tenderness Extremities: No cyanosis Skin: No rashes, No breakdown Labs Labs: Laboratory Tests Test 03/24/20 16:00 03/25/20 05:40 03/25/20 08:00 Heparin Anti-Xa Act, Unfractionated 0.47 IU/mL (0.30-0.70) 0.30 IU/mL (0.30-0.70) White Blood Count 20.6 x10^3/uL (4.0-11.0) Red Blood Count 4.04 x10^6/uL (4.30-5.70) Hemoglobin 12.2 g/dL (13.0-17.5) Hematocrit 38.3 % (39.0-53.0) Mean Corpuscular Volume 95 fL (79-100) Mean Corpuscular Hemoglobin 30 pg (25-35) Mean Corpuscular Hemoglobin Concent 32 g/dL (31-37) Red Cell Distribution Width 13.4 % (11.5-14.5) Platelet Count 360 x10^3/uL (140-400) Sodium Level 143 mmol/L (136-145) Potassium Level 5.8 mmol/L (3.5-5.1) Chloride Level 111 mmol/L (98-107) Carbon Dioxide Level 27 mmol/L (21-32) Anion Gap 5 (6-14) Blood Urea Nitrogen 64 mg/dL (8-26) Creatinine 2.0 mg/dL (0.7-1.3) Estimated GFR (Cockcroft-Gault) 32.8 Glucose Level 268 mg/dL (70-99) Calcium Level 8.1 mg/dL (8.5-10.1) O2 Saturation 99 % (92-99) Arterial Blood pH 7.21 (7.35-7.45) Arterial Blood pH (Temp corrected) 7.20 Arterial Blood pCO2 at Patient Temp 63 mmHg (35-46) Arterial Blood pCO2 (Temp correct) 64 mmHg Arterial Blood pO2 at Patient Temp 194 mmHg (65-108) Arterial Blood pO2 (Temp corrected) 196 mmHg Arterial Blood HCO3 24 mmol/L (21-28) Arterial Blood Base Excess -5 mmol/L (-3-3) FiO2 100/vent Assessment and Plan Assessmemt and Plan NSTEMI Acute hypoxic respiratory failure New onset atrial fibrillation COVID-19 PUI Malnutrition Plan: ICU monitoring Vent weaning IV antibiotics As needed paralytics Continue sedation with Versed fentanyl and Dex Await further pulmonary input Covid protocol Cardiology following Continue heparin drip BiPAP Anticipate ischemic cardiac work-up when his COVID-19 results are negative Chest x-ray obtained at [facility] showed multifocal ill-defined opacities bilaterally, concerning for viral pneumonia. FEN - Cardiac diet PPX - Heparin FULL CODE Prognosis guarded possibly terminal? Appreciate subspecialist input CC time 33minute Comment Review of Relevant I have reviewed the following items ángela (where applicable) has been applied. Medications: Current Medications Medications (Trade) Dose Ordered Sig/Brissa Route PRN Reason Start Time Stop Time Status Last Admin Dose Admin Dexamethasone Sodium Phosphate (Decadron) 4 mg DAILY IVP 03/25/20 09:00 03/25/20 07:45 Famotidine (Pepcid Vial) 20 mg DAILY IVP 03/25/20 09:00 03/25/20 07:47 Fentanyl Citrate 55 ml @ 0 mls/hr CONT PRN PRN IV SEE PROTOCOL 03/24/20 15:45 03/24/20 16:01 Sodium Bicarbonate (Sodium Bicarb Adult 8.4% Syr) 100 meq 1X ONCE IV 03/25/20 09:00 03/25/20 09:01 DC 03/25/20 09:20 Justifications for Admission General Conditions Poss tachycardia?: No Altered mental status?: Yes Other Justification NSTEMI, new onset A. fib, respiratory failure with hypoxia VAL WOOD III DO Mar 25, 2020 10:46
[2020-03-25] MEDS ORDERED: HEPARIN PF 500 UNIT/5 ML DISP.SYRIN. IVP ONE (10:51)
[2020-03-25] MEDS: HEPARIN 25,000UTS/250ML PREMIX 250 ML IV PRN (10:53)
[2020-03-25] MEDS ORDERED: HEPARIN for IV BOLUS 10,000 UNIT/10 ML VIAL. ONE (10:54)
[2020-03-25] MEDS ORDERED: LIDOCAINE WITH 8.4% SOD BICARB 3 ML DISP.SYRIN. INJ ONE (11:00)
[2020-03-25] MEDS ORDERED: PIPERACILLIN/TAZOBACTAM 3.375 GM in IV NORMAL SALINE 50ML 50 ML IV SCH (12:00)
[2020-03-25] MEDS: INSULIN LISPRO 300 UNITS/3 ML VIAL. SQ SCH ×2 (12:10→17:20)
[2020-03-25] MEDS: ACETAMINOPHEN 325 MG TABLET. PO PRN (12:14)
--- NOTE | 2020-03-25 12:24 | PDOC ---
Renal-Progress Notes Subjective Notes Notes ON THE VENT History of Present Illness Hx of present illness NOT IMPROVING Vitals Vitals Vital Signs Date Time Temp Pulse Resp B/P (MAP) Pulse Ox O2 Delivery O2 Flow Rate FiO2 03/25/20 12:00 100.9 94 30 96/50 (65) 80 Ventilator 100.9 03/24/20 16:31 40.0 Weight Weight [ ] I.O. Intake and Output Intake and Output 03/25/20 07:00 Intake Total 4903 ml Output Total 1775 ml Balance 3128 ml IV Total 1843 ml Tube Feeding 2235 ml Other 825 ml Output Urine Total 1775 ml Gastric Drainage Total 0 ml Labs Labs Laboratory Tests Test 03/24/20 16:00 03/25/20 05:40 03/25/20 08:00 Heparin Anti-Xa Act, Unfractionated 0.47 IU/mL (0.30-0.70) 0.30 IU/mL (0.30-0.70) White Blood Count 20.6 x10^3/uL (4.0-11.0) Red Blood Count 4.04 x10^6/uL (4.30-5.70) Hemoglobin 12.2 g/dL (13.0-17.5) Hematocrit 38.3 % (39.0-53.0) Mean Corpuscular Volume 95 fL (79-100) Mean Corpuscular Hemoglobin 30 pg (25-35) Mean Corpuscular Hemoglobin Concent 32 g/dL (31-37) Red Cell Distribution Width 13.4 % (11.5-14.5) Platelet Count 360 x10^3/uL (140-400) Sodium Level 143 mmol/L (136-145) Potassium Level 5.8 mmol/L (3.5-5.1) Chloride Level 111 mmol/L (98-107) Carbon Dioxide Level 27 mmol/L (21-32) Anion Gap 5 (6-14) Blood Urea Nitrogen 64 mg/dL (8-26) Creatinine 2.0 mg/dL (0.7-1.3) Estimated GFR (Cockcroft-Gault) 32.8 Glucose Level 268 mg/dL (70-99) Calcium Level 8.1 mg/dL (8.5-10.1) O2 Saturation 99 % (92-99) Arterial Blood pH 7.21 (7.35-7.45) Arterial Blood pH (Temp corrected) 7.20 Arterial Blood pCO2 at Patient Temp 63 mmHg (35-46) Arterial Blood pCO2 (Temp correct) 64 mmHg Arterial Blood pO2 at Patient Temp 194 mmHg (65-108) Arterial Blood pO2 (Temp corrected) 196 mmHg Arterial Blood HCO3 24 mmol/L (21-28) Arterial Blood Base Excess -5 mmol/L (-3-3) FiO2 100/vent Review of Systems Constitutional: yes: unresponsive Physical Exam General Appearance: other (MIN AND VISUAL DONE DUE TO COVID 19) Skin: warm Respiratory: decreased breath sounds Heart: S1S2 Abdomen: soft, bowel sounds present Genitourinary: bladder flat Extremities: atrophy Neurology: other (SEDATED) Assessment Assessment IMP MICHAEL WORSENING WITH OLIGURIA ACUTE RESP FAILURE NSTEMI ETOH ABUSE COVID 19 PNEUMONIA SHOCK SEPSIS THROMBOGENIC STATE HYPERKALEMIA-BETTER MET AND RESP ACIDOSIS WITH ACIDEMIA HYPERNATREMIA MALNUTRITION PLAN WILL ASK IR TO PLACE TEMP LINE WILL PLAN FOR HD TODAY UF IF TOLERATED HEMODYNAMICALLY HYDRATION VENT SUPPORT HCO3 NEEDED PRESSORS NEEDED ANTIBIOTICS POOR PROGNOSIS ANTICOAGULATION TF TO CONTINUE WATER FLUSHES D/W DR STACY WILL FOLLOW ART DAWKINS MD Mar 25, 2020 12:24
--- NOTE | 2020-03-25 12:38 | RAD ---
Procedure: Temporary hemodialysis catheter placement at the bedside. Clinical Indication: Adult male with acute renal failure Sedation: Local anesthesia only Antibiotics: None Fluoro Time: Not applicable Contrast: None Sterility: All elements of maximal sterile barrier technique including the use of a cap, mask, sterile gown, sterile gloves, large sterile sheet, appropriate hand hygiene, and 2% chlorhexidine for cutaneous antisepsis (or acceptable alternative antiseptic per current guidelines) were followed for this procedure. Consent: The procedure was explained in its entirety to the patient or the patients designated new accounts banking representative by a member of the treatment team, including a discussion of the risks, benefits and commonly accepted alternatives to the procedure, as well as the expected consequences of no therapy whatsoever. Discussion of the risks included, but was not limited to, those that are most frequent and those that are rare but possibly severe or life-threatening, as well as the possibility of unforeseen complications. Technique and Findings: Following informed consent, the patient was prepped and draped in the usual sterile fashion. Ultrasound interrogation of the right neck revealed patency and compressibility of the right internal jugular vein. A 21-gauge micropuncture needle was used to gain access to this vein after 1% Lidocaine was used to achieve local anesthesia. A hardcopy ultrasound image was recorded. The needle was exchanged over a wire for serial dilators followed by a 20 cm Schon temporary hemodialysis catheter which was deployed in the expected location of the mid right atrium. The catheter flow rates were assessed manually and found to be excellent. The catheter was then flushed, packed with Heparin, capped, and sutured to the skin. Chest x-ray was then obtained to assess line position. Complications: No immediate Impression: 1. Ultrasound guided placement of a temporary hemodialysis catheter which exhibits excellent manual flow rates as described.
[2020-03-25] MEDS ORDERED: IV NORMAL SALINE 1000ML BAG 1,000 ML IV PRN ×2 (13:00)
[2020-03-25] MEDS ORDERED: DIALYSIS PATIENT. MC PRN ×2 (13:00)
[2020-03-25] MEDS ORDERED: 0.9 % SODIUM CHLORIDE 10 ML DISP.SYRIN. IV PRN ×2 (13:00)
[2020-03-25] MEDS ORDERED: ALBUMIN HUMAN 25% 200 ML IV PRN (13:00)
--- NOTE | 2020-03-25 16:06 | RAD ---
Exam performed: One view chest. Hx: New dialysis catheter. DATE OF SERVICE: 03/25/2020. Comparison made to a prior single chest from earlier today at 3:06 AM. Findings and impression:: There is placement of a right-sided dialysis-type catheter with its tip terminating just to the ventr icular junction. There is no pneumothorax. Endotracheal tube and feeding tube are redemonstrated. [place] oing diffuse interstitial and airspace opacities seen in both lungs which appears similar. Ongoing sm all bilateral pleural effusions. There is no pneumothorax. Electronically signed by: Janneth Gaspar MD (03/25/2020 4:03 PM) [id number]
[2020-03-25] MEDS: PIPERACILLIN/TAZOBACTAM 2.25 GM in IV NORMAL SALINE 50ML 50 ML IV SCH ×2 (17:20→23:57)
[2020-03-25] MEDS: ATORVASTATIN CALCIUM 10 MG TABLET. PO SCH (21:25)
[2020-03-25] MEDS: fentaNYL HIGH DOSE PCA 55 ML IV PRN (23:56)
[2020-03-26] VITALS (36 sets, daily range): BP systolic 88–148; BP diastolic 50–72
[2020-03-26] MEDS ORDERED: DIGOXIN IV 500 MCG/2 ML AMPUL. IV ONE (01:30)
[2020-03-26] MEDS: DEXMEDETOMIDINE 400 MCG in IV NORMAL SALINE 100ML 96 ML IV PRN ×5 (02:50→21:26)
[2020-03-26] MEDS: MIDAZOLAM 100mg/100ml NS BAG 100 ML IV PRN ×2 (03:32→13:53)
[2020-03-26 04:55] LABS: HEMATOCRIT 34.7 % (39.0-53.0); HEMOGLOBIN 11.6 g/dL (13.0-17.5); RED BLOOD COUNT 3.73 x10^6/uL (4.30-5.70); WHITE BLOOD COUNT 17.3 x10^3/uL (4.0-11.0)
[2020-03-26 05:28] LABS: CALCIUM 7.7 mg/dL (8.5-10.1); CREATININE 2.7 mg/dL (0.7-1.3); GFR 23.2; MAGNESIUM 2.5 mg/dL (1.8-2.4); PHOSPHORUS 5.1 mg/dL (2.6-4.7); POTASSIUM 5.4 mmol/L (3.5-5.1)
[2020-03-26] MEDS: INSULIN LISPRO 300 UNITS/3 ML VIAL. SQ SCH ×4 (05:44→17:31)
[2020-03-26] MEDS: PIPERACILLIN/TAZOBACTAM 2.25 GM in IV NORMAL SALINE 50ML 50 ML IV SCH ×3 (05:57→17:53)
--- NOTE | 2020-03-26 06:24 | PDOC ---
PULMONARY PROGRESS NOTES DATE: 03/26/20 TIME: 06:19 Subjective Intubated 03/22 Remains on ventilatory support, sedated on fentanyl versed precedex, small ett secretion FiO2 of 80% and a PEEP of 10 Vitals Vital Signs Date Time Temp Pulse Resp B/P (MAP) Pulse Ox O2 Delivery O2 Flow Rate FiO2 03/26/20 06:00 92 30 108/56 (73) 100 Ventilator 03/26/20 04:00 98.9 98.9 Comments visual exam done due to COVID-19 intubated/sedated NC AT RRR no accessory muscle use abd obese no leg edema Labs Laboratory Tests Test 03/24/20 08:00 03/24/20 09:00 03/24/20 16:00 03/25/20 05:40 O2 Saturation 85 % (92-99) Arterial Blood pH 7.28 (7.35-7.45) Arterial Blood pCO2 at Patient Temp 51 mmHg (35-46) Arterial Blood pO2 at Patient Temp 49 mmHg (65-108) Arterial Blood HCO3 23 mmol/L (21-28) Arterial Blood Base Excess -4 mmol/L (-3-3) FiO2 80/vent White Blood Count 21.3 x10^3/uL (4.0-11.0) 20.6 x10^3/uL (4.0-11.0) Red Blood Count 4.01 x10^6/uL (4.30-5.70) 4.04 x10^6/uL (4.30-5.70) Hemoglobin 12.5 g/dL (13.0-17.5) 12.2 g/dL (13.0-17.5) Hematocrit 37.6 % (39.0-53.0) 38.3 % (39.0-53.0) Mean Corpuscular Volume 94 fL (79-100) 95 fL (79-100) Mean Corpuscular Hemoglobin 31 pg (25-35) 30 pg (25-35) Mean Corpuscular Hemoglobin Concent 33 g/dL (31-37) 32 g/dL (31-37) Red Cell Distribution Width 13.2 % (11.5-14.5) 13.4 % (11.5-14.5) Platelet Count 309 x10^3/uL (140-400) 360 x10^3/uL (140-400) Heparin Anti-Xa Act, Unfractionated 0.60 IU/mL (0.30-0.70) 0.47 IU/mL (0.30-0.70) 0.30 IU/mL (0.30-0.70) Sodium Level 146 mmol/L (136-145) 143 mmol/L (136-145) Potassium Level 5.1 mmol/L (3.5-5.1) 5.8 mmol/L (3.5-5.1) Chloride Level 111 mmol/L (98-107) 111 mmol/L (98-107) Carbon Dioxide Level 28 mmol/L (21-32) 27 mmol/L (21-32) Anion Gap 7 (6-14) 5 (6-14) Blood Urea Nitrogen 49 mg/dL (8-26) 64 mg/dL (8-26) Creatinine 1.6 mg/dL (0.7-1.3) 2.0 mg/dL (0.7-1.3) Estimated GFR (Cockcroft-Gault) 42.5 32.8 BUN/Creatinine Ratio 31 (6-20) Glucose Level 226 mg/dL (70-99) 268 mg/dL (70-99) Calcium Level 7.8 mg/dL (8.5-10.1) 8.1 mg/dL (8.5-10.1) Total Bilirubin 0.6 mg/dL (0.2-1.0) Aspartate Amino Transf (AST/SGOT) 82 U/L (15-37) Alanine Aminotransferase (ALT/SGPT) 56 U/L (16-63) Alkaline Phosphatase 67 U/L (46-116) Total Protein 4.9 g/dL (6.4-8.2) Albumin 1.5 g/dL (3.4-5.0) Albumin/Globulin Ratio 0.4 (1.0-1.7) Hepatitis B Surface Antigen Nonreactive (Nonreactive) Hepatitis B Surface Antibody Nonreactive Test 03/25/20 08:00 03/25/20 12:25 03/26/20 04:47 O2 Saturation 99 % (92-99) Arterial Blood pH 7.21 (7.35-7.45) Arterial Blood pH (Temp corrected) 7.20 Arterial Blood pCO2 at Patient Temp 63 mmHg (35-46) Arterial Blood pCO2 (Temp correct) 64 mmHg Arterial Blood pO2 at Patient Temp 194 mmHg (65-108) Arterial Blood pO2 (Temp corrected) 196 mmHg Arterial Blood HCO3 24 mmol/L (21-28) Arterial Blood Base Excess -5 mmol/L (-3-3) FiO2 100/vent Hemoglobin 11.5 g/dL (13.0-17.5) 11.6 g/dL (13.0-17.5) White Blood Count 17.3 x10^3/uL (4.0-11.0) Red Blood Count 3.73 x10^6/uL (4.30-5.70) Hematocrit 34.7 % (39.0-53.0) Mean Corpuscular Volume 93 fL (79-100) Mean Corpuscular Hemoglobin 31 pg (25-35) Mean Corpuscular Hemoglobin Concent 33 g/dL (31-37) Red Cell Distribution Width 13.0 % (11.5-14.5) Platelet Count 313 x10^3/uL (140-400) Heparin Anti-Xa Act, Unfractionated < 0.10 IU/mL (0.30-0.70) Sodium Level 143 mmol/L (136-145) Potassium Level 5.4 mmol/L (3.5-5.1) Chloride Level 105 mmol/L (98-107) Carbon Dioxide Level 33 mmol/L (21-32) Anion Gap 5 (6-14) Blood Urea Nitrogen 69 mg/dL (8-26) Creatinine 2.7 mg/dL (0.7-1.3) Estimated GFR (Cockcroft-Gault) 23.2 Glucose Level 154 mg/dL (70-99) Calcium Level 7.7 mg/dL (8.5-10.1) Phosphorus Level 5.1 mg/dL (2.6-4.7) Magnesium Level 2.5 mg/dL (1.8-2.4) Laboratory Tests Test 03/25/20 08:00 03/25/20 12:25 03/26/20 04:47 O2 Saturation 99 % (92-99) Arterial Blood pH 7.21 (7.35-7.45) Arterial Blood pH (Temp corrected) 7.20 Arterial Blood pCO2 at Patient Temp 63 mmHg (35-46) Arterial Blood pCO2 (Temp correct) 64 mmHg Arterial Blood pO2 at Patient Temp 194 mmHg (65-108) Arterial Blood pO2 (Temp corrected) 196 mmHg Arterial Blood HCO3 24 mmol/L (21-28) Arterial Blood Base Excess -5 mmol/L (-3-3) FiO2 100/vent Hemoglobin 11.5 g/dL (13.0-17.5) 11.6 g/dL (13.0-17.5) White Blood Count 17.3 x10^3/uL (4.0-11.0) Red Blood Count 3.73 x10^6/uL (4.30-5.70) Hematocrit 34.7 % (39.0-53.0) Mean Corpuscular Volume 93 fL (79-100) Mean Corpuscular Hemoglobin 31 pg (25-35) Mean Corpuscular Hemoglobin Concent 33 g/dL (31-37) Red Cell Distribution Width 13.0 % (11.5-14.5) Platelet Count 313 x10^3/uL (140-400) Heparin Anti-Xa Act, Unfractionated < 0.10 IU/mL (0.30-0.70) Sodium Level 143 mmol/L (136-145) Potassium Level 5.4 mmol/L (3.5-5.1) Chloride Level 105 mmol/L (98-107) Carbon Dioxide Level 33 mmol/L (21-32) Anion Gap 5 (6-14) Blood Urea Nitrogen 69 mg/dL (8-26) Creatinine 2.7 mg/dL (0.7-1.3) Estimated GFR (Cockcroft-Gault) 23.2 Glucose Level 154 mg/dL (70-99) Calcium Level 7.7 mg/dL (8.5-10.1) Phosphorus Level 5.1 mg/dL (2.6-4.7) Magnesium Level 2.5 mg/dL (1.8-2.4) Comments CXR reviewed Interval progression of bilateral parenchymal airspace opacities ett ok Impression . IMPRESSION: 1. Acute hypoxic respiratory failure due to COVID-19 viral pneumonia/ ARDS/ALI. -Intubated 03/22 with worsening respiratory distress,hypoxia now in shock, multi-system organ failure, markedly elevated D-dIMER 2. [id number] myocardial infarction/ Afib 3. History of alcoholism. 4. Moderate to severe protein-calorie malnutrition. 5. Abnormal troponin with non-ST myocardial infarction. 6. COVID- positive 7. Shock, viral sepsis 8. MICHAEL due to shock/ COVID -19 9. Markedly elevated D-Dimer. need to fully anti-coagulate due to high risk for VTE Plan . RECOMMENDATIONS: Continue current vent support A/C mode and one-to-one ratio, intubated on 02/28------ FiO2 80% and a PEEP of 10, fio2 titration as tolerated Follow CXR/ABG -- COVID-19 positive Follow nephrology recommendations Continue full 10 day course of steroids, started on March 19, 2020 Patient is completed full course of remdesivir Continue abx, on Zosyn and doxycycline Follow cardiology recs off heparin reportedly had jen red blood from ET tube, check hemoglobin stat, transfuse if less than 7.0 Continue tube feeding for nutritional support DVT/GI PPX D/W RN and RT Prognosis gaurded. Full code critically ill Critical Care Time 30 min no overlap CANDIS KING MD Mar 26, 2020 06:24
[2020-03-26] MEDS: DEXAMETHASONE SOD PHOS 4 MG/ML VIAL IVP SCH (08:11)
[2020-03-26] MEDS: ASCORBIC ACID 500 MG TABLET PO SCH (08:11)
[2020-03-26] MEDS: ASPIRIN ENTERIC COATED 81 MG TABLET.DR. PO SCH (08:11)
[2020-03-26] MEDS: CHOLECALCIFEROL (VITAMIN D3) 5,000 UNIT CAPSULE PO SCH (08:11)
[2020-03-26] MEDS: FAMOTIDINE 20 MG/2 ML VIAL IVP SCH (08:12)
[2020-03-26 09:56] LABS: BASE EXCESS ABG 3 mmol/L (-3-3); HCO3 ABG 31 mmol/L (21-28); PO2 ABG 97 mmHg (65-108); SAT O2 ABG 97 % (92-99)
[2020-03-26 10:09] LABS: PCO2 ABG 65 mmHg (35-46)
[2020-03-26 10:10] LABS: FIO2 ABG VENT 80%
[2020-03-26] MEDS: DOXYCYCLINE HYCLATE 100 MG in IV DEXTROSE 5% 100ML 100 ML IV SCH ×2 (12:03→21:07)
[2020-03-26] MEDS ORDERED: HEPARIN for IV BOLUS 10,000 UNIT/10 ML VIAL. IV PRN ×2 (14:15)
--- NOTE | 2020-03-26 14:17 | PDOC ---
PROGRESS NOTES Date of Service DATE: 03/26/20 TIME: 14:16 Subjective Subjective SEEN IN FOLLOW UP OF ARF. HE IS COVID + Objective Objective Vital Signs Date Time Temp Pulse Resp B/P (MAP) Pulse Ox O2 Delivery O2 Flow Rate FiO2 03/26/20 12:00 Mechanical Ventilator 03/26/20 11:45 100 03/26/20 11:00 83 30 116/54 (74) 03/26/20 08:00 99.0 99.0 03/24/20 16:31 40.0 Intake and Output 03/26/20 07:00 Intake Total 3036.5 ml Output Total 1040 ml Balance 1996.5 ml IV Total 1836.5 ml Tube Feeding 1200 ml Output Urine Total 540 ml Gastric Drainage Total 500 ml Physical Exam COMMENT NO BEDSIDE EXAM DUE TO COVID 19 + Diagnosis RENAL FAILURE: Acute (Acute tubular necrosis) Plan Plan of Care FOR DIALYSIS TODAY FOR SOLUTE CLEARANCE. NO FLUID REMOVAL Comment Review of Relevant I have reviewed the following items ángela (where applicable) has been applied. Labs Laboratory Tests Test 03/24/20 16:00 03/25/20 05:40 03/25/20 08:00 03/25/20 12:25 Heparin Anti-Xa Act, Unfractionated 0.47 IU/mL (0.30-0.70) 0.30 IU/mL (0.30-0.70) White Blood Count 20.6 x10^3/uL (4.0-11.0) Red Blood Count 4.04 x10^6/uL (4.30-5.70) Hemoglobin 12.2 g/dL (13.0-17.5) 11.5 g/dL (13.0-17.5) Hematocrit 38.3 % (39.0-53.0) Mean Corpuscular Volume 95 fL (79-100) Mean Corpuscular Hemoglobin 30 pg (25-35) Mean Corpuscular Hemoglobin Concent 32 g/dL (31-37) Red Cell Distribution Width 13.4 % (11.5-14.5) Platelet Count 360 x10^3/uL (140-400) Sodium Level 143 mmol/L (136-145) Potassium Level 5.8 mmol/L (3.5-5.1) Chloride Level 111 mmol/L (98-107) Carbon Dioxide Level 27 mmol/L (21-32) Anion Gap 5 (6-14) Blood Urea Nitrogen 64 mg/dL (8-26) Creatinine 2.0 mg/dL (0.7-1.3) Estimated GFR (Cockcroft-Gault) 32.8 Glucose Level 268 mg/dL (70-99) Calcium Level 8.1 mg/dL (8.5-10.1) Hepatitis B Surface Antigen Nonreactive (Nonreactive) Hepatitis B Surface Antibody Nonreactive O2 Saturation 99 % (92-99) Arterial Blood pH 7.21 (7.35-7.45) Arterial Blood pH (Temp corrected) 7.20 Arterial Blood pCO2 at Patient Temp 63 mmHg (35-46) Arterial Blood pCO2 (Temp correct) 64 mmHg Arterial Blood pO2 at Patient Temp 194 mmHg (65-108) Arterial Blood pO2 (Temp corrected) 196 mmHg Arterial Blood HCO3 24 mmol/L (21-28) Arterial Blood Base Excess -5 mmol/L (-3-3) FiO2 100/vent Test 03/26/20 04:47 03/26/20 09:00 White Blood Count 17.3 x10^3/uL (4.0-11.0) Red Blood Count 3.73 x10^6/uL (4.30-5.70) Hemoglobin 11.6 g/dL (13.0-17.5) Hematocrit 34.7 % (39.0-53.0) Mean Corpuscular Volume 93 fL (79-100) Mean Corpuscular Hemoglobin 31 pg (25-35) Mean Corpuscular Hemoglobin Concent 33 g/dL (31-37) Red Cell Distribution Width 13.0 % (11.5-14.5) Platelet Count 313 x10^3/uL (140-400) Heparin Anti-Xa Act, Unfractionated < 0.10 IU/mL (0.30-0.70) Sodium Level 143 mmol/L (136-145) Potassium Level 5.4 mmol/L (3.5-5.1) Chloride Level 105 mmol/L (98-107) Carbon Dioxide Level 33 mmol/L (21-32) Anion Gap 5 (6-14) Blood Urea Nitrogen 69 mg/dL (8-26) Creatinine 2.7 mg/dL (0.7-1.3) Estimated GFR (Cockcroft-Gault) 23.2 Glucose Level 154 mg/dL (70-99) Calcium Level 7.7 mg/dL (8.5-10.1) Phosphorus Level 5.1 mg/dL (2.6-4.7) Magnesium Level 2.5 mg/dL (1.8-2.4) O2 Saturation 97 % (92-99) Arterial Blood pH 7.29 (7.35-7.45) Arterial Blood pCO2 at Patient Temp 65 mmHg (35-46) Arterial Blood pO2 at Patient Temp 97 mmHg (65-108) Arterial Blood HCO3 31 mmol/L (21-28) Arterial Blood Base Excess 3 mmol/L (-3-3) FiO2 Vent 80% Laboratory Tests Test 03/26/20 04:47 03/26/20 09:00 White Blood Count 17.3 x10^3/uL (4.0-11.0) Red Blood Count 3.73 x10^6/uL (4.30-5.70) Hemoglobin 11.6 g/dL (13.0-17.5) Hematocrit 34.7 % (39.0-53.0) Mean Corpuscular Volume 93 fL (79-100) Mean Corpuscular Hemoglobin 31 pg (25-35) Mean Corpuscular Hemoglobin Concent 33 g/dL (31-37) Red Cell Distribution Width 13.0 % (11.5-14.5) Platelet Count 313 x10^3/uL (140-400) Heparin Anti-Xa Act, Unfractionated < 0.10 IU/mL (0.30-0.70) Sodium Level 143 mmol/L (136-145) Potassium Level 5.4 mmol/L (3.5-5.1) Chloride Level 105 mmol/L (98-107) Carbon Dioxide Level 33 mmol/L (21-32) Anion Gap 5 (6-14) Blood Urea Nitrogen 69 mg/dL (8-26) Creatinine 2.7 mg/dL (0.7-1.3) Estimated GFR (Cockcroft-Gault) 23.2 Glucose Level 154 mg/dL (70-99) Calcium Level 7.7 mg/dL (8.5-10.1) Phosphorus Level 5.1 mg/dL (2.6-4.7) Magnesium Level 2.5 mg/dL (1.8-2.4) O2 Saturation 97 % (92-99) Arterial Blood pH 7.29 (7.35-7.45) Arterial Blood pCO2 at Patient Temp 65 mmHg (35-46) Arterial Blood pO2 at Patient Temp 97 mmHg (65-108) Arterial Blood HCO3 31 mmol/L (21-28) Arterial Blood Base Excess 3 mmol/L (-3-3) FiO2 Vent 80% Medications Current Medications Heparin Sodium (Porcine) (Heparin Sodium) 2,200 unit PRN Q6HRS PRN IV FOR UFH LEVEL LESS THAN 0.2 Last administered on 03/17/20at 23:12; Start 03/17/20 at 20:45; Stop 03/18/20 at 12:30; Status DC Heparin Sodium/ Dextrose 250 ml @ 0 mls/hr CONT PRN IV PER PROTOCOL Last admi nistered on 03/18/20at 06:19; Start 03/17/20 at 21:00; Stop 03/18/20 at 12:30; Status DC Heparin Sodium (Porcine) (Heparin Sodium) 2,200 unit PRN Q6HRS PRN IV FOR UFH LEVEL LESS THAN 0.2; Start 03/17/20 at 21:00; Stop 03/17/20 at 20:57; Status DC Sodium Chloride (Normal Saline Flush) 3 ml PRN DAILY PRN IV AFTER MEDS AND BLOOD DRAWS; Start 03/17/20 at 21:00 Tramadol HCl (Ultram) 50 mg PRN Q6HRS PRN PO PAIN Last administered on 03/18/20at 02:41; Start 03/17/20 at 22:45 Morphine Sulfate (Morphine Sulfate) 4 mg PRN Q2HR PRN IV MODERATE PAIN, SEVERE PAIN Last administered on 03/22/20at 09:02; Start 03/17/20 at 22:45; Stop 03/26/20 at 02:46; Status DC Ondansetron HCl (Zofran) 4 mg PRN Q6HRS PRN IVP NAUSEA/VOMITING; Start 03/17/20 at 22:45 Al Hydroxide/Mg Hydroxide (Mylanta Plus Xs) 30 ml PRN Q3HRS PRN PO HEARTBURN / GAS; Start 03/17/20 at 22:45 Calcium Carbonate/ Glycine (Tums) 500 mg PRN Q3HRS PRN PO UPSET STOMACH; Start 03/17/20 at 22:45 Morphine Sulfate (Morphine Sulfate) 2 mg PRN Q1HR PRN IV MILD PAIN 1-3; Start 03/17/20 at 22:45; Stop 03/26/20 at 02:47; Status DC Acetaminophen (Tylenol) 650 mg PRN Q6HRS PRN PO Headaches, Temp > 101.5F Last administered on 03/25/20at 12:14; Start 03/17/20 at 22:45 Magnesium Hydroxide (Milk Of Magnesia) 2,400 mg PRN Q12HR PRN PO CONSTIPATION; Start 03/17/20 at 22:45 Bisacodyl (Dulcolax Supp) 10 mg PRN DAILY PRN [place] CONSTIPATION; Start 03/17/20 at 22:45 Aspirin (Ecotrin) 81 mg DAILYWBKFT PO Last administered on 03/26/20at 08:11; Start 03/18/20 at 09:00 Furosemide (Lasix) 40 mg 1X ONCE IVP Last administered on 03/18/20at 09:02; Start 03/18/20 at 09:00; Stop 03/18/20 at 09:01; Status DC Ceftriaxone Sodium (Rocephin) 1 gm Q24H IVP Last administered on 03/21/20at 11:22; Start 03/18/20 at 11:00; Stop 03/22/20 at 11:46; Status DC Doxycycline Hyclate 100 mg/ Dextrose 100 ml @ 50 mls/hr Q12HR IV Last administered on 03/26/20at 12:03; Start 03/18/20 at 11:00 Dexamethasone Sodium Phosphate (Decadron) 6 mg DAILY IVP Last administered on 03/24/20at 08:02; Start 03/19/20 at 09:00; Stop 03/24/20 at 11:47; Status DC Insulin Human Lispro (HumaLOG) 0-9 UNITS TIDWMEALS SQ ; Start 03/18/20 at 17:00; Stop 03/21/20 at 09:00; Status DC Dextrose (Dextrose 50%-Water Syringe) 12.5 gm PRN Q15MIN PRN IV SEE COMMENTS; Start 03/18/20 at 12:15 Dexamethasone Sodium Phosphate (Decadron) 6 mg 1X ONCE IVP Last administered on 03/18/20at 12:49; Start 03/18/20 at 13:00; Stop 03/18/20 at 13:01; Status DC Ascorbic Acid (Vitamin C) 500 mg Q6HRS PO Last administered on 03/20/20at 23:52; Start 03/18/20 at 13:00; Stop 03/21/20 at 12:02; Status DC Vitamin D (Vitamin D3) 5,000 unit DAILY PO Last administered on 03/26/20at 08:11; Start 03/18/20 at 13:00 Remdesivir 200 mg/ Sodium Chloride 210 ml @ 210 mls/hr 1X ONCE IV Last administered on 03/18/20at 13:42; Start 03/18/20 at 13:00; Stop 03/18/20 at 13:59; Status DC Remdesivir 100 mg/ Sodium Chloride 230 ml @ 460 mls/hr Q24H IV Last administered on 03/22/20at 14:05; Start 03/19/20 at 13:00; Stop 03/22/20 at 13:29; Status DC Enoxaparin Sodium (Lovenox 40mg Syringe) 40 mg Q24H SQ Last administered on 03/18/20at 12:51; Start 03/18/20 at 13:00; Stop 03/19/20 at 09:01; Status DC Atorvastatin Calcium (Lipitor) 10 mg QHS PO Last administered on 03/25/20at 21:25; Start 03/18/20 at 21:00 Sterile Water (WATER for RESP) 1,000 ml CONT PRN INH VIA VAPOTHERM DEVICE Last administered on 03/19/20at 00:00; Start 03/19/20 at 00:00 Enoxaparin Sodium (Lovenox 40mg Syringe) 40 mg Q12HR SQ Last administered on 03/23/20at 08:52; Start 03/19/20 at 09:00; Stop 03/23/20 at 11:20; Status DC Amino Acids/ Glycerin/ Electrolytes 1,000 ml @ 80 mls/hr [id number] IV Last administered on 03/21/20at 13:27; Start 03/19/20 at 09:30; Stop 03/22/20 at 13:53; Status DC Dexmedetomidine HCl 400 mcg/ Sodium Chloride 100 ml @ 4.46 mls/hr CONT PRN IV PER PROTOCOL Last administered on 03/26/20at 07:25; Start 03/19/20 at 13:30 Sodium Chloride 500 ml @ 500 mls/hr 1X PRN PRN IV SEE COMMENTS Last administered on 03/23/20at 04:57; Start 03/19/20 at 13:30 Atropine Sulfate (ATROPINE 0.5mg SYRINGE) 0.5 mg PRN Q5MIN PRN IV SEE COMMENTS; Start 03/19/20 at 13:30 Lactobacillus Rhamnosus (Culturelle) 1 cap BID PO Last administered on 03/25/20at 21:25; Start 03/19/20 at 21:00; Stop 03/26/20 at 07:40; Status DC Guaifenesin (MUCINEX ER with DM) 1 tab BID PO Last administered on 03/21/20at 07:56; Start 03/19/20 at 22:00; Stop 03/22/20 at 20:47; Status DC Guaifenesin (Robitussin) 200 mg PRN Q6HRS PRN PO COUGH- 1ST CHOICE Last administered on 03/21/20at 12:53; Start 03/20/20 at 23:45 Benzonatate (Tessalon Perle) 100 mg PRN TID PRN PO Cough Last administered on 03/21/20at 12:44; Start 03/20/20 at 23:45 Ascorbic Acid (Vitamin C) 500 mg DAILY PO Last administered on 03/26/20at 08:11; Start 03/22/20 at 09:00 Saliva Substitute (Biotene Moisturizing Mouth) 2 spray PRN Q15MIN PRN PO DRY MOUTH Last administered on 03/21/20at 17:36; Start 03/21/20 at 16:00 Propofol 0 ml @ As Directed STK-MED ONCE IV ; Start 03/22/20 at 10:01; Stop 03/22/20 at 10:01; Status DC Succinylcholine Chloride (Anectine) 200 mg STK-MED ONCE .ROUTE ; Start 03/22/20 at 10:01; Stop 03/22/20 at 10:02; Status DC Etomidate (Amidate) 20 mg STK-MED ONCE IV ; Start 03/22/20 at 10:03; Stop 03/22/20 at 10:03; Status DC Succinylcholine Chloride (Anectine) 100 mg 1X ONCE IV Last administered on 03/22/20at 10:18; Start 03/22/20 at 10:15; Stop 03/22/20 at 10:16; Status DC Etomidate (Amidate) 12 mg 1X ONCE IV Last administered on 03/22/20at 10:19; Start 03/22/20 at 10:15; Stop 03/22/20 at 10:16; Status DC Fentanyl Citrate 30 ml @ 0 mls/hr CONT PRN IV SEE PROTOCOL Last administered on 03/24/20at 09:14; Start 03/22/20 at 10:15; Stop 03/24/20 at 15:39; Status DC Propofol 100 ml @ 0 mls/hr CONT PRN IV PER PROTOCOL; Start 03/22/20 at 10:15 Midazolam HCl 100 ml @ 0 mls/hr CONT PRN IV SEE PROTOCOL Last administered on 03/26/20at 13:53; Start 03/22/20 at 10:15 Midazolam HCl (Versed) 5 mg 1X ONCE IV Last administered on 03/22/20at 10:19; Start 03/22/20 at 10:15; Stop 03/22/20 at 10:16; Status DC Vecuronium [place] (Norcuron Bolus) 10 mg STK-MED ONCE IV ; Start 03/22/20 at 10:49; Stop 03/22/20 at 10:49; Status DC Vecuronium [place] (Norcuron Bolus) 6 mg 1X ONCE IV Last administered on 03/22/20at 11:20; Start 03/22/20 at 10:15; Stop 03/22/20 at 10:53; Status DC Vecuronium [place] (Norcuron Bolus) 10 mg PRN Q4HRS PRN IV NEEDED FOR SEDATION Last administered on 03/25/20at 08:02; Start 03/22/20 at 11:00 Furosemide (Lasix) 40 mg 1X ONCE IVP Last administered on 03/22/20at 12:24; Start 03/22/20 at 11:45; Stop 03/22/20 at 11:48; Status DC Piperacillin Sod/ Tazobactam Sod (Zosyn Per Pharmacy) 1 each PRN DAILY PRN MC SEE COMMENTS; Start 03/22/20 at 11:45 Sodium Bicarbonate (Sodium Bicarb Adult 8.4% Syr) 50 meq 1X ONCE IV Last administered on 03/22/20at 12:23; Start 03/22/20 at 11:45; Stop 03/22/20 at 11:50; Status DC Piperacillin Sod/ Tazobactam Sod 4.5 gm/Sodium Chloride 100 ml @ 200 mls/hr Q6HRS IV Last administered on 03/25/20at 05:45; Start 03/22/20 at 12:00; Stop 03/25/20 at 08:24; Status DC Norepinephrine Bitartrate 8 mg/ Dextrose 258 ml @ 18.015 mls/ hr CONT PRN IV PER PROTOCOL Last administered on 03/23/20at 18:38; Start 03/22/20 at 16:30 Sodium Bicarbonate (Sodium Bicarb Adult 8.4% Syr) 50 meq 1X ONCE IV Last administered on 03/23/20at 11:27; Start 03/23/20 at 10:45; Stop 03/23/20 at 10:46; Status DC Heparin Sodium/ Dextrose 250 ml @ 0 mls/hr CONT PRN IV PER PROTOCOL Last administered on 03/25/20at 10:53; Start 03/23/20 at 11:15; Stop 03/25/20 at 13:11; Status DC Heparin Sodium (Porcine) (Heparin Sodium) 2,800 unit PRN Q6HRS PRN IV FOR UFH LEVEL LESS THAN 0.2 Last administered on 03/23/20at 12:33; Start 03/23/20 at 1 1:15; Stop 03/25/20 at 13:11; Status DC Heparin Sodium (Porcine) (Heparin Sodium) 1,400 unit PRN Q6HRS PRN IV FOR UFH LEVEL 0.2 - 0.29; Start 03/23/20 at 11:15; Stop 03/25/20 at 13:12; Status DC Propofol (Diprivan) 1,000 mg STK-MED ONCE IV ; Start 03/22/20 at 10:00; Stop 03/23/20 at 12:17; Status DC Info (Anti-Coagulation Monitoring By Pharmacy) 1 each PRN DAILY PRN SEE [facility] Last administered on 03/23/20at 12:34; Start 03/23/20 at 12:45; Stop 03/25/20 at 13:12; Status DC Famotidine (Pepcid Vial) 20 mg BID IVP Last administered on 03/24/20at 08:03; Start 03/23/20 at 21:00; Stop 03/24/20 at 15:08; Status DC Dexamethasone Sodium Phosphate (Decadron) 4 mg DAILY IVP Last administered on 03/26/20at 08:11; Start 03/25/20 at 09:00 Famotidine (Pepcid Vial) 20 mg DAILY IVP Last administered on 03/26/20at 08:12; Start 03/25/20 at 09:00 Fentanyl Citrate 55 ml @ 0 mls/hr CONT PRN PRN IV SEE PROTOCOL Last administered on 03/25/20at 23:56; Start 03/24/20 at 15:45 Piperacillin Sod/ Tazobactam Sod 3.375 gm/Sodium Chloride 50 ml @ 100 mls/hr Q6HRS IV Last administered on 03/25/20at 10:54; Start 03/25/20 at 12:00; Stop 03/25/20 at 15:49; Status DC Insulin Human Lispro (HumaLOG) 0-5 UNITS Q6HRS SQ Last administered on 03/25/20at 12:10; Start 03/25/20 at 12:00 Dextrose (Dextrose 50%-Water Syringe) 12.5 gm PRN Q15MIN PRN IV SEE COMMENTS; Start 03/25/20 at 09:00 Sodium Bicarbonate (Sodium Bicarb Adult 8.4% Syr) 100 meq 1X ONCE IV Last administered on 03/25/20at 09:20; Start 03/25/20 at 09:00; Stop 03/25/20 at 09:01; Status DC Lidocaine HCl (Buffered Lidocaine 1%) 3 ml 1X ONCE INJ Last administered on 03/25/20at 11:45; Start 03/25/20 at 11:00; Stop 03/25/20 at 11:01; Status DC Heparin Sodium (Porcine) (Heparin Sodium) 2,500 unit 1X ONCE INT CAT Last administered on 03/25/20at 11:45; Start 03/25/20 at 11:00; Stop 03/25/20 at 11:01; Status DC Heparin Sodium (Porcine) (Hep Lock Adult) 500 unit STK-MED ONCE IVP ; Start 03/25/20 at 10:51; Stop 03/25/20 at 10:51; Status DC Heparin Sodium (Porcine) (Heparin Sodium) 10,000 unit STK-MED ONCE .ROUTE ; Start 03/25/20 at 10:54; Stop 03/25/20 at 10:54; Status DC Sodium Chloride 1,000 ml @ 1,000 mls/hr Q1H PRN IV hypotension; Start 03/25/20 at 13:00; Stop 03/25/20 at 18:59; Status DC Albumin Human 200 ml @ 200 mls/hr 1X PRN PRN IV Hypotension; Start 03/25/20 at 13:00; Stop 03/25/20 at 18:59; Status DC Sodium Chloride (Normal Saline Flush) 10 ml 1X PRN PRN IV AP catheter pack; Start 03/25/20 at 13:00; Stop 03/26/20 at 12:59; Status DC Sodium Chloride (Normal Saline Flush) 10 ml 1X PRN PRN IV [employer] catheter pack; Start 03/25/20 at 13:00; Stop 03/26/20 at 12:59; Status DC Sodium Chloride 1,000 ml @ 400 mls/hr Q2H30M PRN IV PATENCY; Start 03/25/20 at 13:00; Stop 03/26/20 at 00:59; Status DC Info (PHARMACY MONITORING -- do not chart) 1 each PRN DAILY PRN MC SEE COMMENTS; Start 03/25/20 at 13:00; Stop 03/26/20 at 10:54; Status DC Info (PHARMACY MONITORING -- do not chart) 1 each PRN DAILY PRN MC SEE COMMENTS; Start 03/25/20 at 13:00 Piperacillin Sod/ Tazobactam Sod 2.25 gm/Sodium Chloride 50 ml @ 100 mls/hr Q6HRS IV Last administered on 03/26/20at 12:03; Start 03/25/20 at 18:00 Digoxin (Lanoxin) 250 mcg 1X ONCE IV Last administered on 03/26/20at 01:28; Start 03/26/20 at 01:30; Stop 03/26/20 at 01:31; Status DC Vitals/I & O Vital Sign - Last 24 Hours 03/25/20 03/25/20 03/25/20 03/25/20 15:00 15:39 16:00 16:00 Temp 99.0 99.0 Pulse 108 109 Resp 30 30 B/P (MAP) 90/60 (70) 95/65 (75) Pulse Ox 100 100 100 O2 Delivery Ventilator Ventilator Ventilator Mechanical Ventilator 03/25/20 03/25/20 03/25/20 03/25/20 17:00 18:00 19:00 19:30 Pulse 107 107 104 102 Resp 30 30 40 37 B/P (MAP) 106/62 (77) 103/64 (77) 110/64 (79) 92/58 (69) Pulse Ox 100 100 100 100 O2 Delivery Ventilator Ventilator Ventilator Ventilator 03/25/20 03/25/20 03/25/20 03/25/20 19:30 20:00 20:00 20:30 Temp 98.4 98.4 Pulse 112 112 Resp 38 37 B/P (MAP) 110/66 (81) 114/66 (82) Pulse Ox 100 100 100 O2 Delivery Ventilator Ventilator Mechanical Ventilator Ventilator 03/25/20 03/25/20 03/25/20 03/25/20 21:00 21:30 22:00 22:30 Pulse 108 114 146 112 Resp 35 38 30 30 B/P (MAP) 114/62 (79) 112/64 (80) 100/64 (76) 128/70 (89) Pulse Ox 100 100 100 100 O2 Delivery Ventilator Ventilator Ventilator Ventilator 03/25/20 03/25/20 03/25/20 03/25/20 23:00 23:30 23:56 23:56 Pulse 112 112 Resp 30 30 B/P (MAP) 128/68 (88) 132/68 (89) Pulse Ox 100 100 100 100 O2 Delivery Ventilator Ventilator Ventilator Ventilator 03/26/20 03/26/20 03/26/20 03/26/20 00:00 00:01 00:26 00:30 Temp 99.2 99.2 Pulse 110 112 Resp 30 30 B/P (MAP) 132/70 (90) 135/72 (93) Pulse Ox 100 100 100 O2 Delivery Mechanical Ventilator Ventilator Ventilator Ventilator 03/26/20 03/26/20 03/26/20 03/26/20 01:00 01:28 01:30 02:00 Pulse 140 197 134 136 Resp 30 30 30 B/P (MAP) 138/64 (88) 141/70 140/70 (93) 148/72 (97) Pulse Ox 100 100 100 O2 Delivery Ventilator Ventilator Ventilator 03/26/20 03/26/20 03/26/20 03/26/20 02:30 03:00 03:30 04:00 Temp 98.9 98.9 Pulse 118 120 106 104 Resp 30 30 30 30 B/P (MAP) 130/64 (86) 132/64 (86) 116/58 (77) 122/60 (80) Pulse Ox 100 100 100 100 O2 Delivery Ventilator Ventilator Ventilator Ventilator 03/26/20 03/26/20 03/26/20 03/26/20 04:00 04:15 04:30 05:00 Pulse 106 100 Resp 30 30 B/P (MAP) 114/60 (78) 114/58 (76) Pulse Ox 100 100 100 O2 Delivery Mechanical Ventilator Ventilator Ventilator Ventilator 03/26/20 03/26/20 03/26/20 03/26/20 05:30 06:00 06:30 07:00 Pulse 94 92 94 94 Resp 30 30 30 30 B/P (MAP) 112/56 (74) 108/56 (73) 120/59 (79) 114/58 (76) Pulse Ox 100 100 100 100 O2 Delivery Ventilator Ventilator Ventilator Ventilator 03/26/20 03/26/20 03/26/20 03/26/20 08:00 08:00 08:45 09:00 Temp 99.0 99.0 Pulse 94 94 Resp 30 30 B/P (MAP) 110/56 (74) 114/58 (76) Pulse Ox 100 100 100 O2 Delivery Ventilator Mechanical Ventilator Ventilator Ventilator 03/26/20 03/26/20 03/26/20 03/26/20 10:00 11:00 11:45 12:00 Pulse 94 83 Resp 30 30 B/P (MAP) 112/54 (73) 116/54 (74) Pulse Ox 100 100 100 O2 Delivery Ventilator Ventilator Ventilator Mechanical Ventilator Intake and Output 03/25/20 03/25/20 03/26/20 15:00 23:00 07:00 Intake Total 520 ml 1409.5 ml 1107 ml Output Total 300 ml 385 ml 355 ml Balance 220 ml 1024.5 ml 752 ml Justifications for Admission General Conditions Poss tachycardia?: No Altered mental status?: Yes Other Justification NSTEMI, new onset A. fib, respiratory failure with hypoxia ANGEL FITZPATRICK MD Mar 26, 2020 14:17
[2020-03-26] MEDS: HEPARIN 25,000UTS/250ML PREMIX 250 ML IV PRN (15:06)
[2020-03-26] MEDS ORDERED: ALBUMIN HUMAN 25% 200 ML IV PRN (15:45)
[2020-03-26] MEDS ORDERED: 0.9 % SODIUM CHLORIDE 10 ML DISP.SYRIN. IV PRN ×2 (15:45)
[2020-03-26] MEDS ORDERED: DIALYSIS PATIENT. MC PRN ×2 (15:45)
[2020-03-26] MEDS ORDERED: IV NORMAL SALINE 1000ML BAG 1,000 ML IV PRN ×2 (15:45)
--- NOTE | 2020-03-26 16:23 | PDOC ---
GENERAL General: Patient examined chart reviewed discussed with nursing. Today is hospital day 10 for this patient with COVID-19 pneumonia, acute hypoxic respiratory failure secondary to COVID-19 as well as non-ST elevation WA, acute renal failure, and now a pulseless cool and cyanotic left foot. Patient was on heparin for suspected pulmonary embolism as well as his non-ST elevation WA but had hematemesis and so that was held. He now has progressive cyanosis of the left lower extremity as well as inability to Doppler or palpate left foot pulses. We have consulted vascular surgery and their assistance is appreciated. His lower extremity ultrasound was being completed as I examined him. We will continue current management otherwise. Problems: (1) COVID-19 (2) Peripheral artery occlusion (3) Acute renal failure (4) New onset atrial fibrillation (5) NSTEMI (non-ST elevated myocardial infarction) (6) Acute respiratory failure with hypoxia VITAL SIGNS Vital Signs/I&O: Vital Signs Date Time Temp Pulse Resp B/P (MAP) Pulse Ox O2 Delivery O2 Flow Rate FiO2 03/26/20 15:00 85 30 112/54 (73) 100 Ventilator 03/26/20 12:00 98.5 98.5 I & O 03/25/20 03/25/20 03/26/20 15:00 23:00 07:00 Intake Total 520 ml 1409.5 ml 1107 ml Output Total 300 ml 385 ml 355 ml Balance 220 ml 1024.5 ml 752 ml Patient is sedated and intubated nonresponsive on the ventilator Chest is clear to auscultation anteriorly Heart S1-S2 normal regular rate and rhythm no murmurs or gallops are noted Abdomen soft nontender nondistended no masses organomegaly noted Extremity exam is notable for cool cyanotic left lower extremity without any distal pulses palpable. His right lower extremity also has evidence of chronic venous stasis dermatitis. Right distal pulses are palpable ALLERGIES Allergies: Allergies Coded Allergies Type Severity Reaction Last Updated Verified No Known Drug Allergies 03/17/20 No MEDS Medications: Current Medications Medications (Trade) Dose Ordered Sig/Brissa Start Time Stop Time Status Last Admin Dose Admin Acetaminophen (Tylenol) 650 mg PRN Q6HRS PRN 03/17/20 22:45 03/25/20 12:14 Al Hydroxide/Mg Hydroxide (Mylanta Plus Xs) 30 ml PRN Q3HRS PRN 03/17/20 22:45 Albumin Human 200 ml @ 200 mls/hr 1X PRN PRN 03/26/20 15:45 03/26/20 21:44 Amino Acids/ Glycerin/ Electrolytes 1,000 ml @ 80 mls/hr [id number] 03/19/20 09:30 03/22/20 13:53 DC 03/21/20 13:27 Ascorbic Acid (Vitamin C) 500 mg DAILY 03/22/20 09:00 03/26/20 08:11 Aspirin (Ecotrin) 81 mg [id number] 03/18/20 09:00 03/26/20 08:11 Atorvastatin Calcium (Lipitor) 10 mg QHS 03/18/20 21:00 03/25/20 21:25 Atropine Sulfate (ATROPINE 0.5mg SYRINGE) 0.5 mg PRN Q5MIN PRN 03/19/20 13:30 Benzonatate (Tessalon Perle) 100 mg PRN TID PRN 03/20/20 23:45 03/21/20 12:44 Bisacodyl (Dulcolax Supp) 10 mg PRN DAILY PRN 03/17/20 22:45 Calcium Carbonate/ Glycine (Tums) 500 mg PRN Q3HRS PRN 03/17/20 22:45 Ceftriaxone Sodium (Rocephin) 1 gm Q24H 03/18/20 11:00 03/22/20 11:46 DC 03/21/20 11:22 Dexamethasone Sodium Phosphate (Decadron) 4 mg DAILY 03/25/20 09:00 03/26/20 08:11 Dexmedetomidine HCl 400 mcg/ Sodium Chloride 100 ml @ 4.46 mls/hr CONT PRN 03/19/20 13:30 03/26/20 07:25 Dextrose (Dextrose 50%-Water Syringe) 12.5 gm PRN Q15MIN PRN 03/25/20 09:00 Digoxin (Lanoxin) 250 mcg 1X ONCE 03/26/20 01:30 03/26/20 01:31 DC 03/26/20 01:28 Doxycycline Hyclate 100 mg/ Dextrose 100 ml @ 50 mls/hr Q12HR 03/18/20 11:00 03/26/20 12:03 Enoxaparin Sodium (Lovenox 40mg Syringe) 40 mg Q12HR 03/19/20 09:00 03/23/20 11:20 DC 03/23/20 08:52 Etomidate (Amidate) 12 mg 1X ONCE 03/22/20 10:15 03/22/20 10:16 DC 03/22/20 10:19 Famotidine (Pepcid Vial) 20 mg DAILY 03/25/20 09:00 03/26/20 08:12 Fentanyl Citrate 55 ml @ 0 mls/hr CONT PRN PRN 03/24/20 15:45 03/25/20 23:56 Furosemide (Lasix) 40 mg 1X ONCE 03/22/20 11:45 03/22/20 11:48 DC 03/22/20 12:24 Guaifenesin (MUCINEX ER with DM) 1 tab BID 03/19/20 22:00 03/22/20 20:47 DC 03/21/20 07:56 Guaifenesin (Robitussin) 200 mg PRN Q6HRS PRN 03/20/20 23:45 03/21/20 12:53 Heparin Sodium (Porcine) (Hep Lock Adult) 500 unit STK-MED ONCE 03/25/20 10:51 03/25/20 10:51 DC Heparin Sodium (Porcine) (Heparin Sodium) 1,400 unit PRN Q6HRS PRN 03/26/20 14:15 Heparin Sodium/ Dextrose 250 ml @ 14.88 mls/ hr CONT PRN 03/26/20 14:15 03/26/20 15:06 Info (Anti-Coagulation Monitoring By Pharmacy) 1 each PRN DAILY PRN 03/23/20 12:45 03/25/20 13:12 DC 03/23/20 12:34 Info (PHARMACY MONITORING -- do not chart) 1 each PRN DAILY PRN 03/26/20 15:45 Insulin Human Lispro (HumaLOG) 0-5 UNITS Q6HRS 03/25/20 12:00 03/25/20 12:10 Lactobacillus Rhamnosus (Culturelle) 1 cap BID 03/19/20 21:00 03/26/20 07:40 DC 03/25/20 21:25 Lidocaine HCl (Buffered Lidocaine 1%) 3 ml 1X ONCE 03/25/20 11:00 03/25/20 11:01 DC 03/25/20 11:45 Magnesium Hydroxide (Milk Of Magnesia) 2,400 mg PRN Q12HR PRN 03/17/20 22:45 Midazolam HCl (Versed) 5 mg 1X ONCE 03/22/20 10:15 03/22/20 10:16 DC 03/22/20 10:19 Morphine Sulfate (Morphine Sulfate) 2 mg PRN Q1HR PRN 03/17/20 22:45 03/26/20 02:47 DC Norepinephrine Bitartrate 8 mg/ Dextrose 258 ml @ 18.015 mls/ hr CONT PRN 03/22/20 16:30 03/23/20 18:38 Ondansetron HCl (Zofran) 4 mg PRN Q6HRS PRN 03/17/20 22:45 Piperacillin Sod/ Tazobactam Sod (Zosyn Per Pharmacy) 1 each PRN DAILY PRN 03/22/20 11:45 Piperacillin Sod/ Tazobactam Sod 2.25 gm/Sodium Chloride 50 ml @ 100 mls/hr Q6HRS 03/25/20 18:00 03/26/20 12:03 Piperacillin Sod/ Tazobactam Sod 3.375 gm/Sodium Chloride 50 ml @ 100 mls/hr Q6HRS 03/25/20 12:00 03/25/20 15:49 DC 03/25/20 10:54 Piperacillin Sod/ Tazobactam Sod 4.5 gm/Sodium Chloride 100 ml @ 200 mls/hr Q6HRS 03/22/20 12:00 03/25/20 08:24 DC 03/25/20 05:45 Propofol (Diprivan) 1,000 mg STK-MED ONCE 03/22/20 10:00 03/23/20 12:17 DC Remdesivir 100 mg/ Sodium Chloride 230 ml @ 460 mls/hr Q24H 03/19/20 13:00 03/22/20 13:29 DC 03/22/20 14:05 Remdesivir 200 mg/ Sodium Chloride 210 ml @ 210 mls/hr 1X ONCE 03/18/20 13:00 03/18/20 13:59 DC 03/18/20 13:42 Saliva Substitute (Biotene Moisturizing Mouth) 2 spray PRN Q15MIN PRN 03/21/20 16:00 03/21/20 17:36 Sodium Bicarbonate (Sodium Bicarb Adult 8.4% Syr) 100 meq 1X ONCE 03/25/20 09:00 03/25/20 09:01 DC 03/25/20 09:20 Sodium Chloride 1,000 ml @ 400 mls/hr Q2H30M PRN 03/26/20 15:45 03/27/20 03:44 Sodium Chloride (Normal Saline Flush) 10 ml 1X PRN PRN 03/26/20 15:45 03/27/20 15:44 Sterile Water (WATER for RESP) 1,000 ml CONT PRN 03/19/20 00:00 03/19/20 00:00 Succinylcholine Chloride (Anectine) 100 mg 1X ONCE 03/22/20 10:15 03/22/20 10:16 DC 03/22/20 10:18 Tramadol HCl (Ultram) 50 mg PRN Q6HRS PRN 03/17/20 22:45 03/18/20 02:41 Vecuronium [place] (Norcuron Bolus) 10 mg PRN Q4HRS PRN 03/22/20 11:00 03/25/20 08:02 Vitamin D (Vitamin D3) 5,000 unit DAILY 03/18/20 13:00 03/26/20 08:11 Current Medications Medications (Trade) Dose Ordered Sig/Brissa Route PRN Reason Start Time Stop Time Status Last Admin Dose Admin Piperacillin Sod/ Tazobactam Sod 2.25 gm/Sodium Chloride 50 ml @ 100 mls/hr Q6HRS IV 03/25/20 18:00 03/26/20 12:03 Digoxin (Lanoxin) 250 mcg 1X ONCE IV 03/26/20 01:30 03/26/20 01:31 DC 03/26/20 01:28 Heparin Sodium/ Dextrose 250 ml @ 14.88 mls/ hr CONT PRN IV PER PROTOCOL 03/26/20 14:15 03/26/20 15:06 Heparin Sodium (Porcine) (Heparin Sodium) 2,800 unit PRN Q6HRS PRN IV FOR UFH LEVEL LESS THAN 0.2 03/26/20 14:15 03/26/20 15:05 LAB Lab: Laboratory Tests Test 03/26/20 04:47 03/26/20 09:00 White Blood Count 17.3 x10^3/uL (4.0-11.0) H Red Blood Count 3.73 x10^6/uL (4.30-5.70) L Hemoglobin 11.6 g/dL (13.0-17.5) L Hematocrit 34.7 % (39.0-53.0) L Mean Corpuscular Volume 93 fL (79-100) Mean Corpuscular Hemoglobin 31 pg (25-35) Mean Corpuscular Hemoglobin Concent 33 g/dL (31-37) Red Cell Distribution Width 13.0 % (11.5-14.5) Platelet Count 313 x10^3/uL (140-400) Heparin Anti-Xa Act, Unfractionated < 0.10 IU/mL (0.30-0.70) L Sodium Level 143 mmol/L (136-145) Potassium Level 5.4 mmol/L (3.5-5.1) H Chloride Level 105 mmol/L (98-107) Carbon Dioxide Level 33 mmol/L (21-32) H Anion Gap 5 (6-14) L Blood Urea Nitrogen 69 mg/dL (8-26) H Creatinine 2.7 mg/dL (0.7-1.3) H Estimated GFR (Cockcroft-Gault) 23.2 Glucose Level 154 mg/dL (70-99) H Calcium Level 7.7 mg/dL (8.5-10.1) L Phosphorus Level 5.1 mg/dL (2.6-4.7) H Magnesium Level 2.5 mg/dL (1.8-2.4) H O2 Saturation 97 % (92-99) Arterial Blood pH 7.29 (7.35-7.45) L Arterial Blood pCO2 at Patient Temp 65 mmHg (35-46) *H Arterial Blood pO2 at Patient Temp 97 mmHg (65-108) Arterial Blood HCO3 31 mmol/L (21-28) H Arterial Blood Base Excess 3 mmol/L (-3-3) FiO2 Vent 80% Laboratory Tests 03/26/20 04:47 Laboratory Tests 03/26/20 04:47 ASSESSMENT & PLAN A&P Plan as noted above This note was created using [employer] and may have omissions and/or errors due to the nature of real-time voice psychologist developmental. Justifications for Admission General Conditions Poss tachycardia?: No Altered mental status?: Yes Other Justification NSTEMI, new onset A. fib, respiratory failure with hypoxia VALENCIA ROCHA MD Mar 26, 2020 16:22
--- NOTE | 2020-03-26 17:16 | RAD ---
Exam: Ultrasound bilateral lower extremity arterial duplex Indication: No pulse on left, weak on right Technique: Real-time grayscale and color Doppler images of the bilateral lower extremity were obtaine d by the department woods overseer. Comparisons: None FINDINGS: Peak systolic velocities as follows: Right: ASTROPHYSICS TEACHER: 119 DFA: 157 Proximal SFA: 93 Mid SFA: 103 Distal SFA: 65 Popliteal: 41 Proximal MACHINE JOINER CEMENTER: 93 Distal MACHINE JOINER CEMENTER: 11, difficult to see Peroneal: 223 NEELAM: 57 DPA: Not seen Triphasic waveforms are noted to the level of the proximal MACHINE JOINER CEMENTER. Large collateral vessels noted arisin g off of the distal femoral artery. Severe area of stenosis at the peroneal artery Left: ASTROPHYSICS TEACHER: 152 DFA: 91 Proximal SFA: 1:15 Mid SFA: 119 Distal SFA: 100 Popliteal: 28 Proximal MACHINE JOINER CEMENTER: 84 Distal MACHINE JOINER CEMENTER: Not seen Peroneal artery: 24 NEELAM: 11 DPA: 13 Triphasic waveforms noted to the level of the distal SFA. Biphasic waveforms in the popliteal:. Monop hasic waveforms at the proximal MACHINE JOINER CEMENTER. IMPRESSION: 1. 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 2. There is moderate stenosis a left common femoral artery. Minimal flow noted within the dorsal ped al artery on the left. Electronically signed by: Cedric Daniels MD (03/26/2020 5:13 PM) DAFNE
--- NOTE | 2020-03-26 17:28 | RAD ---
STUDY: US BILATERAL LOWEREXTREMITY VENOUS DOPPLER INDICATION: Absent pulse on the left. Weak pulses on right. Swelling. DVT. TECHNIQUE: Color-flow and pulsed wave duplex ultrasound with compression of venous structures of the bilateral lower extremities. COMPARISON: 08/13/2019. FINDINGS: Duplex ultrasound with compression of the deep venous structures of the bilateral lower extremities f rom the common femoral vein through the popliteal vein is negative for DVT. The posterior tibial and peroneal veins are segmentally visualized and patent where seen. Normal veno us waveforms and augmentation are noted throughout. IMPRESSION: No deep venous thrombosis seen throughout either lower extremity. Electronically signed by: GARTH GIVENS MD (03/26/2020 5:25 PM) [id number]
[2020-03-26] MEDS: NOREPINEPHRINE VIAL 8 MG in IV DEXTROSE 5% 250 ML IV PRN (17:33)
[2020-03-26] MEDS: ACETAMINOPHEN 325 MG TABLET. PO PRN (21:04)
[2020-03-26] MEDS: ATORVASTATIN CALCIUM 10 MG TABLET. PO SCH (21:04)
[2020-03-27] VITALS (30 sets, daily range): BP systolic 94–126; BP diastolic 48–68
[2020-03-27] MEDS: PIPERACILLIN/TAZOBACTAM 2.25 GM in IV NORMAL SALINE 50ML 50 ML IV SCH ×4 (00:22→18:25)
[2020-03-27] MEDS: DEXMEDETOMIDINE 400 MCG in IV NORMAL SALINE 100ML 96 ML IV PRN ×2 (01:45→23:04)
[2020-03-27] MEDS: MIDAZOLAM 100mg/100ml NS BAG 100 ML IV PRN ×2 (01:46→16:05)
[2020-03-27 03:21] LABS: BASO # 0.1 x10^3/uL (0.0-0.2); BASO % 0 % (0-3); EOS % 0 % (0-3); HEMATOCRIT 32.2 % (39.0-53.0); HEMOGLOBIN 10.8 g/dL (13.0-17.5); LYMPH # 0.6 x10^3/uL (1.0-4.8); LYMPH % 3 % (24-48); MEAN CORPUSCULAR HEMOGLOBIN 31 pg (25-35); MEAN CORPUSCULAR HGB CONC 34 g/dL (31-37); MEAN CORPUSCULAR VOLUME 92 fL (79-100); MONO # 2.6 x10^3/uL (0.0-1.1); MONO % 13 % (0-9); NEUT # 17.4 x10^3/uL (1.8-7.7); NEUT % 84 % (31-73); PLATELET COUNT 263 x10^3/uL (140-400); RED BLOOD COUNT 3.49 x10^6/uL (4.30-5.70); RED CELL DISTRIBUTION WIDTH 12.7 % (11.5-14.5); WHITE BLOOD COUNT 20.7 x10^3/uL (4.0-11.0)
[2020-03-27 03:37] LABS: ALBUMIN 1.4 g/dL (3.4-5.0); ALBUMIN/GLOBULIN RATIO 0.3 (1.0-1.7); CALCIUM 7.6 mg/dL (8.5-10.1); CREATININE 2.4 mg/dL (0.7-1.3); GFR 26.6; POTASSIUM 4.9 mmol/L (3.5-5.1); TOTAL BILIRUBIN 0.8 mg/dL (0.2-1.0); TOTAL PROTEIN 5.5 g/dL (6.4-8.2)
[2020-03-27] MEDS: INSULIN LISPRO 300 UNITS/3 ML VIAL. SQ SCH ×4 (05:48→18:37)
--- NOTE | 2020-03-27 05:56 | PDOC ---
PULMONARY PROGRESS NOTES DATE: 03/27/20 TIME: 05:55 Subjective Intubated 03/22 Remains on ventilatory support, sedated on fentanyl versed, small ett secretion FiO2 of 80% and a PEEP of 10 restarted on hep gtt no bleeding Vitals Vital Signs Date Time Temp Pulse Resp B/P (MAP) Pulse Ox O2 Delivery O2 Flow Rate FiO2 03/27/20 04:30 100 Ventilator 03/27/20 04:00 98.2 64 35 116/56 (76) 98.2 Comments visual exam done due to COVID-19 intubated/sedated NC AT RRR no accessory muscle use abd obese no leg edema Labs Laboratory Tests Test 03/25/20 08:00 03/25/20 12:25 03/26/20 04:47 03/26/20 09:00 O2 Saturation 99 % (92-99) 97 % (92-99) Arterial Blood pH 7.21 (7.35-7.45) 7.29 (7.35-7.45) Arterial Blood pH (Temp corrected) 7.20 Arterial Blood pCO2 at Patient Temp 63 mmHg (35-46) 65 mmHg (35-46) Arterial Blood pCO2 (Temp correct) 64 mmHg Arterial Blood pO2 at Patient Temp 194 mmHg (65-108) 97 mmHg (65-108) Arterial Blood pO2 (Temp corrected) 196 mmHg Arterial Blood HCO3 24 mmol/L (21-28) 31 mmol/L (21-28) Arterial Blood Base Excess -5 mmol/L (-3-3) 3 mmol/L (-3-3) FiO2 100/vent Vent 80% Hemoglobin 11.5 g/dL (13.0-17.5) 11.6 g/dL (13.0-17.5) White Blood Count 17.3 x10^3/uL (4.0-11.0) Red Blood Count 3.73 x10^6/uL (4.30-5.70) Hematocrit 34.7 % (39.0-53.0) Mean Corpuscular Volume 93 fL (79-100) Mean Corpuscular Hemoglobin 31 pg (25-35) Mean Corpuscular Hemoglobin Concent 33 g/dL (31-37) Red Cell Distribution Width 13.0 % (11.5-14.5) Platelet Count 313 x10^3/uL (140-400) Heparin Anti-Xa Act, Unfractionated < 0.10 IU/mL (0.30-0.70) Sodium Level 143 mmol/L (136-145) Potassium Level 5.4 mmol/L (3.5-5.1) Chloride Level 105 mmol/L (98-107) Carbon Dioxide Level 33 mmol/L (21-32) Anion Gap 5 (6-14) Blood Urea Nitrogen 69 mg/dL (8-26) Creatinine 2.7 mg/dL (0.7-1.3) Estimated GFR (Cockcroft-Gault) 23.2 Glucose Level 154 mg/dL (70-99) Calcium Level 7.7 mg/dL (8.5-10.1) Phosphorus Level 5.1 mg/dL (2.6-4.7) Magnesium Level 2.5 mg/dL (1.8-2.4) Test 03/26/20 21:27 03/27/20 03:14 Heparin Anti-Xa Act, Unfractionated 0.67 IU/mL (0.30-0.70) 0.75 IU/mL (0.30-0.70) White Blood Count 20.7 x10^3/uL (4.0-11.0) Red Blood Count 3.49 x10^6/uL (4.30-5.70) Hemoglobin 10.8 g/dL (13.0-17.5) Hematocrit 32.2 % (39.0-53.0) Mean Corpuscular Volume 92 fL (79-100) Mean Corpuscular Hemoglobin 31 pg (25-35) Mean Corpuscular Hemoglobin Concent 34 g/dL (31-37) Red Cell Distribution Width 12.7 % (11.5-14.5) Platelet Count 263 x10^3/uL (140-400) Neutrophils (%) (Auto) 84 % (31-73) Lymphocytes (%) (Auto) 3 % (24-48) Monocytes (%) (Auto) 13 % (0-9) Eosinophils (%) (Auto) 0 % (0-3) Basophils (%) (Auto) 0 % (0-3) Neutrophils # (Auto) 17.4 x10^3/uL (1.8-7.7) Lymphocytes # (Auto) 0.6 x10^3/uL (1.0-4.8) Monocytes # (Auto) 2.6 x10^3/uL (0.0-1.1) Eosinophils # (Auto) 0.0 x10^3/uL (0.0-0.7) Basophils # (Auto) 0.1 x10^3/uL (0.0-0.2) Sodium Level 140 mmol/L (136-145) Potassium Level 4.9 mmol/L (3.5-5.1) Chloride Level 104 mmol/L (98-107) Carbon Dioxide Level 32 mmol/L (21-32) Anion Gap 4 (6-14) Blood Urea Nitrogen 60 mg/dL (8-26) Creatinine 2.4 mg/dL (0.7-1.3) Estimated GFR (Cockcroft-Gault) 26.6 BUN/Creatinine Ratio 25 (6-20) Glucose Level 174 mg/dL (70-99) Calcium Level 7.6 mg/dL (8.5-10.1) Total Bilirubin 0.8 mg/dL (0.2-1.0) Aspartate Amino Transf (AST/SGOT) 97 U/L (15-37) Alanine Aminotransferase (ALT/SGPT) 61 U/L (16-63) Alkaline Phosphatase 48 U/L (46-116) Total Protein 5.5 g/dL (6.4-8.2) Albumin 1.4 g/dL (3.4-5.0) Albumin/Globulin Ratio 0.3 (1.0-1.7) Laboratory Tests Test 03/26/20 09:00 03/26/20 21:27 03/27/20 03:14 O2 Saturation 97 % (92-99) Arterial Blood pH 7.29 (7.35-7.45) Arterial Blood pCO2 at Patient Temp 65 mmHg (35-46) Arterial Blood pO2 at Patient Temp 97 mmHg (65-108) Arterial Blood HCO3 31 mmol/L (21-28) Arterial Blood Base Excess 3 mmol/L (-3-3) FiO2 Vent 80% Heparin Anti-Xa Act, Unfractionated 0.67 IU/mL (0.30-0.70) 0.75 IU/mL (0.30-0.70) White Blood Count 20.7 x10^3/uL (4.0-11.0) Red Blood Count 3.49 x10^6/uL (4.30-5.70) Hemoglobin 10.8 g/dL (13.0-17.5) Hematocrit 32.2 % (39.0-53.0) Mean Corpuscular Volume 92 fL (79-100) Mean Corpuscular Hemoglobin 31 pg (25-35) Mean Corpuscular Hemoglobin Concent 34 g/dL (31-37) Red Cell Distribution Width 12.7 % (11.5-14.5) Platelet Count 263 x10^3/uL (140-400) Neutrophils (%) (Auto) 84 % (31-73) Lymphocytes (%) (Auto) 3 % (24-48) Monocytes (%) (Auto) 13 % (0-9) Eosinophils (%) (Auto) 0 % (0-3) Basophils (%) (Auto) 0 % (0-3) Neutrophils # (Auto) 17.4 x10^3/uL (1.8-7.7) Lymphocytes # (Auto) 0.6 x10^3/uL (1.0-4.8) Monocytes # (Auto) 2.6 x10^3/uL (0.0-1.1) Eosinophils # (Auto) 0.0 x10^3/uL (0.0-0.7) Basophils # (Auto) 0.1 x10^3/uL (0.0-0.2) Sodium Level 140 mmol/L (136-145) Potassium Level 4.9 mmol/L (3.5-5.1) Chloride Level 104 mmol/L (98-107) Carbon Dioxide Level 32 mmol/L (21-32) Anion Gap 4 (6-14) Blood Urea Nitrogen 60 mg/dL (8-26) Creatinine 2.4 mg/dL (0.7-1.3) Estimated GFR (Cockcroft-Gault) 26.6 BUN/Creatinine Ratio 25 (6-20) Glucose Level 174 mg/dL (70-99) Calcium Level 7.6 mg/dL (8.5-10.1) Total Bilirubin 0.8 mg/dL (0.2-1.0) Aspartate Amino Transf (AST/SGOT) 97 U/L (15-37) Alanine Aminotransferase (ALT/SGPT) 61 U/L (16-63) Alkaline Phosphatase 48 U/L (46-116) Total Protein 5.5 g/dL (6.4-8.2) Albumin 1.4 g/dL (3.4-5.0) Albumin/Globulin Ratio 0.3 (1.0-1.7) Comments CXR reviewed Interval progression of bilateral parenchymal airspace opacities ett ok Impression . IMPRESSION: 1. Acute hypoxic respiratory failure due to COVID-19 viral pneumonia/ ARDS/ALI. -Intubated 03/22 with worsening respiratory distress,hypoxia now in shock, multi-system organ failure, markedly elevated D-dIMER 2. Ape-KC-nrtiaxugk myocardial infarction/ Afib 3. History of alcoholism. 4. Moderate to severe protein-calorie malnutrition. 5. Abnormal troponin with non-ST myocardial infarction. 6. COVID- positive 7. Shock, viral sepsis 8. MICHAEL due to shock/ COVID -19 9. Markedly elevated D-Dimer. need to fully anti-coagulate due to high risk for VTE Plan . RECOMMENDATIONS: Continue current vent support A/C mode and 2-to-one ratio, intubated on 03/22/20------ FiO2 80% and a PEEP of 10, fio2 titration as tolerated hep restarted monitor for bleeding Follow CXR/ABG -- abg reviewed, will change to 1 to 1 I/E ratio, increase rate to 32 COVID-19 positive Follow nephrology recommendations Continue full 10 day course of steroids, started on March 19, 2020 Patient is completed full course of remdesivir Continue abx, on Zosyn and doxycycline Follow cardiology recs Continue tube feeding for nutritional support DVT/GI PPX D/W RN and RT Prognosis gaurded. Full code critically ill Critical Care Time 30 min no overlap CANDIS KING MD Mar 27, 2020 05:56
[2020-03-27] MEDS: ASPIRIN ENTERIC COATED 81 MG TABLET.DR. PO SCH (08:22)
[2020-03-27] MEDS: DEXAMETHASONE SOD PHOS 4 MG/ML VIAL IVP SCH (08:22)
[2020-03-27] MEDS: FAMOTIDINE 20 MG/2 ML VIAL IVP SCH (08:22)
[2020-03-27] MEDS: CHOLECALCIFEROL (VITAMIN D3) 5,000 UNIT CAPSULE PO SCH (08:22)
[2020-03-27] MEDS: DOXYCYCLINE HYCLATE 100 MG in IV DEXTROSE 5% 100ML 100 ML IV SCH ×2 (08:23→21:50)
[2020-03-27] MEDS: ASCORBIC ACID 500 MG TABLET PO SCH (08:24)
[2020-03-27] MEDS: HEPARIN 25,000UTS/250ML PREMIX 250 ML IV PRN (08:32)
[2020-03-27 08:42] LABS: BASE EXCESS ABG 3 mmol/L (-3-3); HCO3 ABG 30 mmol/L (21-28); PO2 ABG 83 mmHg (65-108); SAT O2 ABG 95 % (92-99)
[2020-03-27 09:12] LABS: PCO2 ABG 62 mmHg (35-46)
[2020-03-27 09:13] LABS: FIO2 ABG 80%+10
--- NOTE | 2020-03-27 09:44 | PDOC ---
Provider Note Date of Service: DATE: 03/27/20 TIME: 09:40 Provider Note Vascular Surgery Consult dictated 74 year old male with severe septic shock from covid pneumonia, respiratory failure on vent, non ST elevation NE and acute renal failure has ischemia to the bilateral lower extremities from low arterial flow causing demarcating skin changes worse in left left leg compared to the right. Arterial duplex shows no thrombotic occlusion. On exam he has doppler right PT and left DP pulses. Continue heparin drip, rooke boots and warmer to legs. No surgical intervention needed at this point. Will continue to follow. Justifications for Admission General Conditions Poss tachycardia?: No Altered mental status?: Yes Other Justification NSTEMI, new onset A. fib, respiratory failure with hypoxia ADRIAN KING MD Mar 27, 2020 09:44
--- NOTE | 2020-03-27 11:43 | CONS ---
DATE OF CONSULTATION: 03/27/2020 CHIEF COMPLAINT: Lower extremity poor circulation. HISTORY OF PRESENT ILLNESS: The patient is a 74-year-old male, who was admitted from an outside hospital to the Intensive Care Unit here at [facility] with septic shock from COVID pneumonia, respiratory failure, a non-STEMI myocardial infarction and renal failure. He is currently on the ventilator in septic shock. He has been on IV pressor medications. He has developed during his course mottling and ischemic skin changes to his bilateral lower extremities with poor circulation. 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 He is on a heparin drip, anticoagulation for his decreased flow circulation and myocardial infarction, also hypercoagulability with COVID. Venous duplex scan of his bilateral lower extremities was also performed, which is negative for deep venous thrombosis. REVIEW OF SYSTEMS: Unobtainable because the patient is intubated on a ventilator. PAST MEDICAL HISTORY: 1. By chart review includes atrial fibrillation. 2. Osteoarthritis. 3. Prostate enlargement. 4. Currently, he has COVID pneumonia and respiratory failure and a myocardial infarction. PAST SURGICAL HISTORY: Surgery on his right hand and left foot. FAMILY HISTORY: Unknown. SOCIAL HISTORY: Also, unknown. ALLERGIES: Include no known drug allergies. MEDICATIONS: Please see his full MAR. He is on a heparin drip, anticoagulation. PHYSICAL EXAMINATION: GENERAL: The patient is sedated on the ventilator. VITAL SIGNS: He is afebrile. His blood pressure is 112/56, pulse of 72. NECK: Supple. ABDOMEN: Soft, nondistended, and nontender. EXTREMITIES: His bilateral upper extremities are warm without significant edema, his fingers are warm and pink with good capillary refill. No signs of ischemia in his hands. His bilateral lower extremities have significant ischemic skin changes. In the right leg, he has on the anterior hart, a long area of what looks like bruising and possible hematoma from a fall, but it is a demarcating area of dark black skin. In his right foot, the toes have darkening cyanosis with ischemic demarcating skin changes. In the left lower leg, his left ankle, heel and dorsal foot along with his plantar forefoot have dark ischemic skin changes with demarcating early gangrene. On vascular examination in the right foot, he has a dopplerable posterior tibial pulse. In the left foot, he has a very monophasic dorsalis pedis dopplerable pulse. ASSESSMENT AND PLAN: The patient is a 74-year-old male in very critical condition with COVID-19 pneumonia causing respiratory failure and ventilator requirement, non-ST elevation myocardial infarction, acute renal failure; requiring intermittent dialysis and septic shock with hypotension; requiring pressors. He has decreased circulation to his bilateral lower extremities because of his septic shock, pressor requirement in critical condition. Arterial duplex scan shows no thrombotic occlusion, just low poor flow to his feet. He does have dopplerable flow by examination in his right posterior tibial location and now left dorsalis pedis location. He has demarcating skin changes of ischemia in the bilateral lower extremities as described above. No surgical intervention is required. Hopefully, his circulation will improve as his clinical state improves; however, he may be left with permanent skin changes with gangrene and may even require amputation of his lower extremity or toes. His left leg skin changes are worse than the right. We are warming his lower extremities with Rooke boots and a Oniel Hugger. He is on a heparin drip for prophylaxis and to help improve circulation. We will continue to monitor. ADRIAN KING MD DR: AYLA/gabriel JOB#: [id number] / [id number]
--- NOTE | 2020-03-27 13:01 | PDOC ---
GENERAL General: Patient examined chart reviewed discussed with nursing. Appreciate vascular input. Patient is back on the heparin infusion and seems to be tolerating that though his hemoglobin was slightly lower today. There is no obvious signs of bleeding. With the heat and the heparin his perfusion does seem to be improving. He does have significant peripheral vascular disease however no life-threatening ischemic clot was noted. We will continue current management otherwise. Problems: (1) New onset atrial fibrillation (2) NSTEMI (non-ST elevated myocardial infarction) (3) Acute respiratory failure with hypoxia (4) COVID-19 (5) Peripheral artery occlusion (6) Acute renal failure VITAL SIGNS Vital Signs/I&O: Vital Signs Date Time Temp Pulse Resp B/P (MAP) Pulse Ox O2 Delivery O2 Flow Rate FiO2 03/27/20 12:04 100 Ventilator 03/27/20 06:00 72 32 112/56 (74) 03/27/20 04:00 98.2 98.2 I & O 03/26/20 03/26/20 03/27/20 15:00 23:00 07:00 Intake Total 550 ml 829 ml 1064 ml Output Total 250 ml 400 ml 450 ml Balance 300 ml 429 ml 614 ml Patient is intubated and sedated on the ventilator underneath a heating blanket Chest is clear to auscultation anteriorly Heart S1-S2 normal regular rate and rhythm no murmurs or gallops are noted Abdomen soft nontender nondistended no masses organomegaly noted Extremity exam has improved warmth with the [place] boots and the heating blanket. I did not remove the boot entirely but note that he does have pulses on evaluation earlier today ALLERGIES Allergies: Allergies Coded Allergies Type Severity Reaction Last Updated Verified No Known Drug Allergies 03/17/20 No MEDS Medications: Current Medications Medications (Trade) Dose Ordered Sig/Brissa Start Time Stop Time Status Last Admin Dose Admin Acetaminophen (Tylenol) 650 mg PRN Q6HRS PRN 03/17/20 22:45 03/26/20 21:04 Al Hydroxide/Mg Hydroxide (Mylanta Plus Xs) 30 ml PRN Q3HRS PRN 03/17/20 22:45 Albumin Human 200 ml @ 200 mls/hr 1X PRN PRN 03/26/20 15:45 03/26/20 21:44 DC Amino Acids/ Glycerin/ Electrolytes 1,000 ml @ 80 mls/hr [id number] 03/19/20 09:30 03/22/20 13:53 DC 03/21/20 13:27 Ascorbic Acid (Vitamin C) 500 mg DAILY 03/22/20 09:00 03/27/20 08:24 Aspirin (Ecotrin) 81 mg [id number] 03/18/20 09:00 03/27/20 08:22 Atorvastatin Calcium (Lipitor) 10 mg QHS 03/18/20 21:00 03/26/20 21:04 Atropine Sulfate (ATROPINE 0.5mg SYRINGE) 0.5 mg PRN Q5MIN PRN 03/19/20 13:30 Benzonatate (Tessalon Perle) 100 mg PRN TID PRN 03/20/20 23:45 03/21/20 12:44 Bisacodyl (Dulcolax Supp) 10 mg PRN DAILY PRN 03/17/20 22:45 Calcium Carbonate/ Glycine (Tums) 500 mg PRN Q3HRS PRN 03/17/20 22:45 Ceftriaxone Sodium (Rocephin) 1 gm Q24H 03/18/20 11:00 03/22/20 11:46 DC 03/21/20 11:22 Dexamethasone Sodium Phosphate (Decadron) 4 mg DAILY 03/25/20 09:00 03/27/20 08:22 Dexmedetomidine HCl 400 mcg/ Sodium Chloride 100 ml @ 4.46 mls/hr CONT PRN 03/19/20 13:30 03/27/20 01:45 Dextrose (Dextrose 50%-Water Syringe) 12.5 gm PRN Q15MIN PRN 03/25/20 09:00 Digoxin (Lanoxin) 250 mcg 1X ONCE 03/26/20 01:30 03/26/20 01:31 DC 03/26/20 01:28 Doxycycline Hyclate 100 mg/ Dextrose 100 ml @ 50 mls/hr Q12HR 03/18/20 11:00 03/27/20 08:23 Enoxaparin Sodium (Lovenox 40mg Syringe) 40 mg Q12HR 03/19/20 09:00 03/23/20 11:20 DC 03/23/20 08:52 Etomidate (Amidate) 12 mg 1X ONCE 03/22/20 10:15 03/22/20 10:16 DC 03/22/20 10:19 Famotidine (Pepcid Vial) 20 mg DAILY 03/25/20 09:00 03/27/20 08:22 Fentanyl Citrate 55 ml @ 0 mls/hr CONT PRN PRN 03/24/20 15:45 03/25/20 23:56 Furosemide (Lasix) 40 mg 1X ONCE 03/22/20 11:45 03/22/20 11:48 DC 03/22/20 12:24 Guaifenesin (MUCINEX ER with DM) 1 tab BID 03/19/20 22:00 03/22/20 20:47 DC 03/21/20 07:56 Guaifenesin (Robitussin) 200 mg PRN Q6HRS PRN 03/20/20 23:45 03/21/20 12:53 Heparin Sodium (Porcine) (Hep Lock Adult) 500 unit STK-MED ONCE 03/25/20 10:51 03/25/20 10:51 DC Heparin Sodium (Porcine) (Heparin Sodium) 1,400 unit PRN Q6HRS PRN 03/26/20 14:15 Heparin Sodium/ Dextrose 250 ml @ 14.88 mls/ hr CONT PRN 03/26/20 14:15 03/27/20 08:32 Info (Anti-Coagulation Monitoring By Pharmacy) 1 each PRN DAILY PRN 03/23/20 12:45 03/25/20 13:12 DC 03/23/20 12:34 Info (PHARMACY MONITORING -- do not chart) 1 each PRN DAILY PRN 03/26/20 15:45 Insulin Human Lispro (HumaLOG) 0-5 UNITS Q6HRS 03/25/20 12:00 03/25/20 12:10 Lactobacillus Rhamnosus (Culturelle) 1 cap BID 03/19/20 21:00 03/26/20 07:40 DC 03/25/20 21:25 Lidocaine HCl (Buffered Lidocaine 1%) 3 ml 1X ONCE 03/25/20 11:00 03/25/20 11:01 DC 03/25/20 11:45 Magnesium Hydroxide (Milk Of Magnesia) 2,400 mg PRN Q12HR PRN 03/17/20 22:45 Midazolam HCl (Versed) 5 mg 1X ONCE 03/22/20 10:15 03/22/20 10:16 DC 03/22/20 10:19 Morphine Sulfate (Morphine Sulfate) 2 mg PRN Q1HR PRN 03/17/20 22:45 03/26/20 02:47 DC Norepinephrine Bitartrate 8 mg/ Dextrose 258 ml @ 18.015 mls/ hr CONT PRN 03/22/20 16:30 03/26/20 17:33 Ondansetron HCl (Zofran) 4 mg PRN Q6HRS PRN 03/17/20 22:45 Piperacillin Sod/ Tazobactam Sod (Zosyn Per Pharmacy) 1 each PRN DAILY PRN 03/22/20 11:45 Piperacillin Sod/ Tazobactam Sod 2.25 gm/Sodium Chloride 50 ml @ 100 mls/hr Q6HRS 03/25/20 18:00 03/27/20 12:21 Piperacillin Sod/ Tazobactam Sod 3.375 gm/Sodium Chloride 50 ml @ 100 mls/hr Q6HRS 03/25/20 12:00 03/25/20 15:49 DC 03/25/20 10:54 Piperacillin Sod/ Tazobactam Sod 4.5 gm/Sodium Chloride 100 ml @ 200 mls/hr Q6HRS 03/22/20 12:00 03/25/20 08:24 DC 03/25/20 05:45 Propofol (Diprivan) 1,000 mg STK-MED ONCE 03/22/20 10:00 03/23/20 12:17 DC Remdesivir 100 mg/ Sodium Chloride 230 ml @ 460 mls/hr Q24H 03/19/20 13:00 03/22/20 13:29 DC 03/22/20 14:05 Remdesivir 200 mg/ Sodium Chloride 210 ml @ 210 mls/hr 1X ONCE 03/18/20 13:00 03/18/20 13:59 DC 03/18/20 13:42 Saliva Substitute (Biotene Moisturizing Mouth) 2 spray PRN Q15MIN PRN 03/21/20 16:00 03/21/20 17:36 Sodium Bicarbonate (Sodium Bicarb Adult 8.4% Syr) 100 meq 1X ONCE 03/25/20 09:00 03/25/20 09:01 DC 03/25/20 09:20 Sodium Chloride 1,000 ml @ 400 mls/hr Q2H30M PRN 03/26/20 15:45 03/27/20 03:44 DC Sodium Chloride (Normal Saline Flush) 10 ml 1X PRN PRN 03/26/20 15:45 03/27/20 15:44 Sterile Water (WATER for RESP) 1,000 ml CONT PRN 03/19/20 00:00 03/19/20 00:00 Succinylcholine Chloride (Anectine) 100 mg 1X ONCE 03/22/20 10:15 03/22/20 10:16 DC 03/22/20 10:18 Tramadol HCl (Ultram) 50 mg PRN Q6HRS PRN 03/17/20 22:45 03/18/20 02:41 Vecuronium [place] (Norcuron Bolus) 10 mg PRN Q4HRS PRN 03/22/20 11:00 03/25/20 08:02 Vitamin D (Vitamin D3) 5,000 unit DAILY 03/18/20 13:00 03/27/20 08:22 Current Medications Medications (Trade) Dose Ordered Sig/Brissa Route PRN Reason Start Time Stop Time Status Last Admin Dose Admin Heparin Sodium/ Dextrose 250 ml @ 14.88 mls/ hr CONT PRN IV PER PROTOCOL 03/26/20 14:15 03/27/20 08:32 Heparin Sodium (Porcine) (Heparin Sodium) 2,800 unit PRN Q6HRS PRN IV FOR UFH LEVEL LESS THAN 0.2 03/26/20 14:15 03/26/20 15:05 LAB Lab: Laboratory Tests Test 03/26/20 21:27 03/27/20 03:14 03/27/20 08:00 03/27/20 09:15 Heparin Anti-Xa Act, Unfractionated 0.67 IU/mL (0.30-0.70) 0.75 IU/mL (0.30-0.70) H 0.53 IU/mL (0.30-0.70) White Blood Count 20.7 x10^3/uL (4.0-11.0) H Red Blood Count 3.49 x10^6/uL (4.30-5.70) L Hemoglobin 10.8 g/dL (13.0-17.5) L Hematocrit 32.2 % (39.0-53.0) L Mean Corpuscular Volume 92 fL (79-100) Mean Corpuscular Hemoglobin 31 pg (25-35) Mean Corpuscular Hemoglobin Concent 34 g/dL (31-37) Red Cell Distribution Width 12.7 % (11.5-14.5) Platelet Count 263 x10^3/uL (140-400) Neutrophils (%) (Auto) 84 % (31-73) H Lymphocytes (%) (Auto) 3 % (24-48) L Monocytes (%) (Auto) 13 % (0-9) H Eosinophils (%) (Auto) 0 % (0-3) Basophils (%) (Auto) 0 % (0-3) Neutrophils # (Auto) 17.4 x10^3/uL (1.8-7.7) H Lymphocytes # (Auto) 0.6 x10^3/uL (1.0-4.8) L Monocytes # (Auto) 2.6 x10^3/uL (0.0-1.1) H Eosinophils # (Auto) 0.0 x10^3/uL (0.0-0.7) Basophils # (Auto) 0.1 x10^3/uL (0.0-0.2) Sodium Level 140 mmol/L (136-145) Potassium Level 4.9 mmol/L (3.5-5.1) Chloride Level 104 mmol/L (98-107) Carbon Dioxide Level 32 mmol/L (21-32) Anion Gap 4 (6-14) L Blood Urea Nitrogen 60 mg/dL (8-26) H Creatinine 2.4 mg/dL (0.7-1.3) H Estimated GFR (Cockcroft-Gault) 26.6 BUN/Creatinine Ratio 25 (6-20) H Glucose Level 174 mg/dL (70-99) H Calcium Level 7.6 mg/dL (8.5-10.1) L Total Bilirubin 0.8 mg/dL (0.2-1.0) Aspartate Amino Transferase (AST) 97 U/L (15-37) H Alanine Aminotransferase (ALT) 61 U/L (16-63) Alkaline Phosphatase 48 U/L (46-116) Total Protein 5.5 g/dL (6.4-8.2) L Albumin 1.4 g/dL (3.4-5.0) L Albumin/Globulin Ratio 0.3 (1.0-1.7) L O2 Saturation 95 % (92-99) Arterial Blood pH 7.30 (7.35-7.45) L Arterial Blood pCO2 at Patient Temp 62 mmHg (35-46) *H Arterial Blood pO2 at Patient Temp 83 mmHg (65-108) Arterial Blood HCO3 30 mmol/L (21-28) H Arterial Blood Base Excess 3 mmol/L (-3-3) FiO2 80%+10 Laboratory Tests 03/27/20 03:14 Laboratory Tests 03/27/20 03:14 ASSESSMENT & PLAN A&P Plan as noted above This note was created using [employer] and may have omissions and/or errors due to the 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 Justifications for Admission General Conditions Poss tachycardia?: No Altered mental status?: Yes Other Justification NSTEMI, new onset A. fib, respiratory failure with hypoxia VALENCIA ROCHA MD Mar 27, 2020 13:01
[2020-03-27] MEDS: ATORVASTATIN CALCIUM 10 MG TABLET. PO SCH (21:39)
[2020-03-27] MEDS ORDERED: DIGOXIN IV 500 MCG/2 ML AMPUL. IV ONE (22:00)
[2020-03-28] VITALS (28 sets, daily range): BP systolic 76–118; BP diastolic 48–62
[2020-03-28] MEDS: fentaNYL HIGH DOSE PCA 55 ML IV PRN (00:29)
[2020-03-28] MEDS: PIPERACILLIN/TAZOBACTAM 2.25 GM in IV NORMAL SALINE 50ML 50 ML IV SCH ×3 (00:31→12:26)
[2020-03-28] MEDS: INSULIN LISPRO 300 UNITS/3 ML VIAL. SQ SCH ×5 (01:04→23:20)
[2020-03-28] MEDS: HEPARIN 25,000UTS/250ML PREMIX 250 ML IV PRN ×2 (02:12→23:18)
[2020-03-28] MEDS: DEXMEDETOMIDINE 400 MCG in IV NORMAL SALINE 100ML 96 ML IV PRN ×6 (02:13→19:59)
[2020-03-28] MEDS: MIDAZOLAM 100mg/100ml NS BAG 100 ML IV PRN ×3 (02:13→23:19)
[2020-03-28 06:16] LABS: BASO % 0 % (0-3); EOS % 0 % (0-3); HEMATOCRIT 29.9 % (39.0-53.0); HEMOGLOBIN 9.7 g/dL (13.0-17.5); LYMPH # 0.6 x10^3/uL (1.0-4.8); LYMPH % 2 % (24-48); MEAN CORPUSCULAR HEMOGLOBIN 31 pg (25-35); MEAN CORPUSCULAR HGB CONC 33 g/dL (31-37); MEAN CORPUSCULAR VOLUME 94 fL (79-100); MONO # 2.6 x10^3/uL (0.0-1.1); MONO % 10 % (0-9); NEUT # 23.5 x10^3/uL (1.8-7.7); NEUT % 88 % (31-73); PLATELET COUNT 249 x10^3/uL (140-400); RED BLOOD COUNT 3.19 x10^6/uL (4.30-5.70); WHITE BLOOD COUNT 26.7 x10^3/uL (4.0-11.0)
[2020-03-28 06:34] LABS: ALBUMIN 1.4 g/dL (3.4-5.0); ALBUMIN/GLOBULIN RATIO 0.3 (1.0-1.7); CALCIUM 7.9 mg/dL (8.5-10.1); GFR 20.6; POTASSIUM 5.5 mmol/L (3.5-5.1); TOTAL BILIRUBIN 0.7 mg/dL (0.2-1.0); TOTAL PROTEIN 5.5 g/dL (6.4-8.2)
[2020-03-28] MEDS: ASPIRIN ENTERIC COATED 81 MG TABLET.DR. PO SCH (08:25)
[2020-03-28] MEDS: DEXAMETHASONE SOD PHOS 4 MG/ML VIAL IVP SCH (08:25)
[2020-03-28] MEDS: ASCORBIC ACID 500 MG TABLET PO SCH (08:25)
[2020-03-28] MEDS: CHOLECALCIFEROL (VITAMIN D3) 5,000 UNIT CAPSULE PO SCH (08:25)
[2020-03-28] MEDS: FAMOTIDINE 20 MG/2 ML VIAL IVP SCH (08:25)
[2020-03-28] MEDS: DOXYCYCLINE HYCLATE 100 MG in IV DEXTROSE 5% 100ML 100 ML IV SCH (08:26)
[2020-03-28 09:15] LABS: BASE EXCESS ABG 2 mmol/L (-3-3); HCO3 ABG 31 mmol/L (21-28)
[2020-03-28] MEDS ORDERED: DIALYSIS PATIENT. MC PRN (09:15)
[2020-03-28] MEDS ORDERED: ALBUMIN HUMAN 25% 200 ML IV PRN (09:15)
[2020-03-28 09:18] LABS: PCO2 ABG 77 mmHg (35-46); PO2 ABG < 42 mmHg (65-108)
[2020-03-28 09:19] LABS: FIO2 ABG 90; SAT O2 ABG 65 % (92-99)
[2020-03-28] MEDS: VECURONIUM BOLUS 10 MG VIAL. IV PRN ×3 (09:31→16:58)
--- NOTE | 2020-03-28 09:36 | NUR ---
0900- Faustino RN in room, starting patient on hemodialysis. Upon starting, pt not tolerating well. 02 sat dropped rapidly into 60s, no improvement with oral care, sedatives, paralytics. RT in room, 100% fi02 given on vent. ABG drawn- critical results, see EMR. safia Rubio CONCRETE ENGINEER at bedside, aware of pt status. Pt.'s daughter, Mari ([phone]), notified events this morning and pt poor prognosis. Pt made DNR by daughter, approval for her to come see pt. Pt still unstable with 02 sats in 60s, now requiring levophed gtt to keep MAP of 65. Hemodialysis stopped prematurely. Dr. Damon aware.
--- NOTE | 2020-03-28 09:47 | PDOC ---
DATE OF SERVICE DATE: 03/28/20 TIME: 09:36 SUBJECTIVE ROS Seen on dialysis decompensating OBJECTIVE Vital Signs Vital Signs Date Time Temp Pulse Resp B/P (MAP) Pulse Ox O2 Delivery O2 Flow Rate FiO2 03/28/20 08:05 86 Ventilator 03/28/20 07:00 99 32 108/55 (72) 03/28/20 04:00 97.6 97.6 03/28/20 01:00 40.0 I & 0 Intake and Output 03/28/20 07:00 Intake Total 2769 ml Output Total 1125 ml Balance 1644 ml IV Total 514 ml Tube Feeding 1200 ml Blood Product IV Normal Saline Flush 1055 ml Output Urine Total 1125 ml PHYSICAL EXAM Physical Exam visual exam/and per pulm /vascular done due to COVID-19 General intubated and sedated on the ventilator HEEN Intubated Lungs decreased at bases Heart S1-S2 Abdomen soft nondistended Extremity bilateral LE with ischemic skin changes. 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 - Intubated 03/22 with worsening respiratory distress,hypoxia now in shock, multi-system organ failure, markedly elevated D-dIMER completed full course of remdesivir, currently on steroids [id number] myocardial infarction/ Afib History of alcoholism. COVID- positive Shock, sepsis Markedly elevated D-Dimer. need to fully anti-coagulate due to high risk for VTE COMMENT/RELEVANT DATA Meds Current Medications Medications (Trade) Dose Ordered Sig/Brissa Start Time Stop Time Status Last Admin Dose Admin Acetaminophen (Tylenol) 650 mg PRN Q6HRS PRN 03/17/20 22:45 03/26/20 21:04 650 MG Al Hydroxide/Mg Hydroxide (Mylanta Plus Xs) 30 ml PRN Q3HRS PRN 03/17/20 22:45 Albumin Human 200 ml @ 200 mls/hr 1X PRN PRN 03/28/20 09:15 03/28/20 15:14 03/28/20 09:31 200 MLS/HR Amino Acids/ Glycerin/ Electrolytes 1,000 ml @ 80 mls/hr [id number] 03/19/20 09:30 03/22/20 13:53 DC 03/21/20 13:27 80 MLS/HR Ascorbic Acid (Vitamin C) 500 mg DAILY 03/22/20 09:00 03/28/20 08:25 500 MG Aspirin (Ecotrin) 81 mg [id number] 03/18/20 09:00 03/28/20 08:25 81 MG Atorvastatin Calcium (Lipitor) 10 mg QHS 03/18/20 21:00 03/27/20 21:39 10 MG Atropine Sulfate (ATROPINE 0.5mg SYRINGE) 0.5 mg PRN Q5MIN PRN 03/19/20 13:30 Benzonatate (Tessalon Perle) 100 mg PRN TID PRN 03/20/20 23:45 03/21/20 12:44 100 MG Bisacodyl (Dulcolax Supp) 10 mg PRN DAILY PRN 03/17/20 22:45 Calcium Carbonate/ Glycine (Tums) 500 mg PRN Q3HRS PRN 03/17/20 22:45 Ceftriaxone Sodium (Rocephin) 1 gm Q24H 03/18/20 11:00 03/22/20 11:46 DC 03/21/20 11:22 1 GM Dexamethasone Sodium Phosphate (Decadron) 4 mg DAILY 03/25/20 09:00 03/28/20 08:25 4 MG Dexmedetomidine HCl 400 mcg/ Sodium Chloride 100 ml @ 4.46 mls/hr CONT PRN 03/19/20 13:30 03/28/20 06:46 4.46 MLS/HR Dextrose (Dextrose 50%-Water Syringe) 12.5 gm PRN Q15MIN PRN 03/25/20 09:00 Digoxin (Lanoxin) 500 mcg 1X ONCE 03/27/20 22:00 03/27/20 22:01 DC 03/27/20 21:39 500 MCG Doxycycline Hyclate 100 mg/ Dextrose 100 ml @ 50 mls/hr Q12HR 03/18/20 11:00 03/28/20 08:26 50 MLS/HR Enoxaparin Sodium (Lovenox 40mg Syringe) 40 mg Q12HR 03/19/20 09:00 03/23/20 11:20 DC 03/23/20 08:52 40 MG Etomidate (Amidate) 12 mg 1X ONCE 03/22/20 10:15 03/22/20 10:16 DC 03/22/20 10:19 12 MG Famotidine (Pepcid Vial) 20 mg DAILY 03/25/20 09:00 03/28/20 08:25 20 MG Fentanyl Citrate 55 ml @ 0 mls/hr CONT PRN PRN 03/24/20 15:45 03/28/20 00:29 1 MLS/HR Furosemide (Lasix) 40 mg 1X ONCE 03/22/20 11:45 03/22/20 11:48 DC 03/22/20 12:24 40 MG Guaifenesin (MUCINEX ER with DM) 1 tab BID 03/19/20 22:00 03/22/20 20:47 DC 03/21/20 07:56 1 TAB Guaifenesin (Robitussin) 200 mg PRN Q6HRS PRN 03/20/20 23:45 03/21/20 12:53 200 MG Heparin Sodium (Porcine) (Hep Lock Adult) 500 unit STK-MED ONCE 03/25/20 10:51 03/25/20 10:51 DC Heparin Sodium (Porcine) (Heparin Sodium) 1,400 unit PRN Q6HRS PRN 03/26/20 14:15 Heparin Sodium/ Dextrose 250 ml @ 14.88 mls/ hr CONT PRN 03/26/20 14:15 03/28/20 02:12 14.88 MLS/HR Info (Anti-Coagulation Monitoring By Pharmacy) 1 each PRN DAILY PRN 03/28/20 08:00 Info (PHARMACY MONITORING -- do not chart) 1 each PRN DAILY PRN 03/28/20 09:15 Insulin Human Lispro (HumaLOG) 0-5 UNITS Q6HRS 03/25/20 12:00 03/28/20 06:08 2 UNITS Lactobacillus Rhamnosus (Culturelle) 1 cap BID 03/19/20 21:00 03/26/20 07:40 DC 03/25/20 21:25 1 CAP Lidocaine HCl (Buffered Lidocaine 1%) 3 ml 1X ONCE 03/25/20 11:00 03/25/20 11:01 DC 03/25/20 11:45 3 ML Magnesium Hydroxide (Milk Of Magnesia) 2,400 mg PRN Q12HR PRN 03/17/20 22:45 Midazolam HCl (Versed) 5 mg 1X ONCE 03/22/20 10:15 03/22/20 10:16 DC 03/22/20 10:19 5 MG Morphine Sulfate (Morphine Sulfate) 2 mg PRN Q1HR PRN 03/17/20 22:45 03/26/20 02:47 DC Norepinephrine Bitartrate 8 mg/ Dextrose 258 ml @ 18.015 mls/ hr CONT PRN 03/22/20 16:30 03/26/20 17:33 1.7 MLS/HR Ondansetron HCl (Zofran) 4 mg PRN Q6HRS PRN 03/17/20 22:45 Piperacillin Sod/ Tazobactam Sod (Zosyn Per Pharmacy) 1 each PRN DAILY PRN 03/22/20 11:45 Piperacillin Sod/ Tazobactam Sod 2.25 gm/Sodium Chloride 50 ml @ 100 mls/hr Q6HRS 03/25/20 18:00 03/28/20 06:07 100 MLS/HR Piperacillin Sod/ Tazobactam Sod 3.375 gm/Sodium Chloride 50 ml @ 100 mls/hr Q6HRS 03/25/20 12:00 03/25/20 15:49 DC 03/25/20 10:54 100 MLS/HR Piperacillin Sod/ Tazobactam Sod 4.5 gm/Sodium Chloride 100 ml @ 200 mls/hr Q6HRS 03/22/20 12:00 03/25/20 08:24 DC 03/25/20 05:45 200 MLS/HR Propofol (Diprivan) 1,000 mg STK-MED ONCE 03/22/20 10:00 03/23/20 12:17 DC Remdesivir 100 mg/ Sodium Chloride 230 ml @ 460 mls/hr Q24H 03/19/20 13:00 03/22/20 13:29 DC 03/22/20 14:05 460 MLS/HR Remdesivir 200 mg/ Sodium Chloride 210 ml @ 210 mls/hr 1X ONCE 03/18/20 13:00 03/18/20 13:59 DC 03/18/20 13:42 210 MLS/HR Saliva Substitute (Biotene Moisturizing Mouth) 2 spray PRN Q15MIN PRN 03/21/20 16:00 03/21/20 17:36 2 SPRAY Sodium Bicarbonate (Sodium Bicarb Adult 8.4% Syr) 100 meq 1X ONCE 03/25/20 09:00 03/25/20 09:01 DC 03/25/20 09:20 100 MEQ Sodium Chloride 1,000 ml @ 400 mls/hr Q2H30M PRN 03/26/20 15:45 03/27/20 03:44 DC Sodium Chloride (Normal Saline Flush) 10 ml 1X PRN PRN 03/26/20 15:45 03/27/20 15:44 DC Sterile Water (WATER for RESP) 1,000 ml CONT PRN 03/19/20 00:00 03/19/20 00:00 1,000 ML Succinylcholine Chloride (Anectine) 100 mg 1X ONCE 03/22/20 10:15 03/22/20 10:16 DC 03/22/20 10:18 100 MG Tramadol HCl (Ultram) 50 mg PRN Q6HRS PRN 03/17/20 22:45 03/18/20 02:41 50 MG Vecuronium [place] (Norcuron Bolus) 10 mg PRN Q4HRS PRN 03/22/20 11:00 03/28/20 09:31 10 MG Vitamin D (Vitamin D3) 5,000 unit DAILY 03/18/20 13:00 03/28/20 08:25 5,000 UNIT Lab Laboratory Tests Test 03/27/20 15:30 03/28/20 05:40 03/28/20 09:00 Heparin Anti-Xa Act, Unfractionated 0.68 IU/mL (0.30-0.70) White Blood Count 26.7 x10^3/uL (4.0-11.0) Red Blood Count 3.19 x10^6/uL (4.30-5.70) Hemoglobin 9.7 g/dL (13.0-17.5) Hematocrit 29.9 % (39.0-53.0) Mean Corpuscular Volume 94 fL (79-100) Mean Corpuscular Hemoglobin 31 pg (25-35) Mean Corpuscular Hemoglobin Concent 33 g/dL (31-37) Red Cell Distribution Width 13.0 % (11.5-14.5) Platelet Count 249 x10^3/uL (140-400) Neutrophils (%) (Auto) 88 % (31-73) Lymphocytes (%) (Auto) 2 % (24-48) Monocytes (%) (Auto) 10 % (0-9) Eosinophils (%) (Auto) 0 % (0-3) Basophils (%) (Auto) 0 % (0-3) Neutrophils # (Auto) 23.5 x10^3/uL (1.8-7.7) Lymphocytes # (Auto) 0.6 x10^3/uL (1.0-4.8) Monocytes # (Auto) 2.6 x10^3/uL (0.0-1.1) Eosinophils # (Auto) 0.0 x10^3/uL (0.0-0.7) Basophils # (Auto) 0.0 x10^3/uL (0.0-0.2) Sodium Level 143 mmol/L (136-145) Potassium Level 5.5 mmol/L (3.5-5.1) Chloride Level 107 mmol/L (98-107) Carbon Dioxide Level 29 mmol/L (21-32) Anion Gap 7 (6-14) Blood Urea Nitrogen 96 mg/dL (8-26) Creatinine 3.0 mg/dL (0.7-1.3) Estimated GFR (Cockcroft-Gault) 20.6 BUN/Creatinine Ratio 32 (6-20) Glucose Level 203 mg/dL (70-99) Calcium Level 7.9 mg/dL (8.5-10.1) Total Bilirubin 0.7 mg/dL (0.2-1.0) Aspartate Amino Transf (AST/SGOT) 72 U/L (15-37) Alanine Aminotransferase (ALT/SGPT) 59 U/L (16-63) Alkaline Phosphatase 64 U/L (46-116) Total Protein 5.5 g/dL (6.4-8.2) Albumin 1.4 g/dL (3.4-5.0) Albumin/Globulin Ratio 0.3 (1.0-1.7) O2 Saturation 65 % (92-99) Arterial Blood pH 7.22 (7.35-7.45) Arterial Blood pCO2 at Patient Temp 77 mmHg (35-46) Arterial Blood pO2 at Patient Temp < 42 mmHg (65-108) Arterial Blood HCO3 31 mmol/L (21-28) Arterial Blood Base Excess 2 mmol/L (-3-3) FiO2 90 Results All relevant outside records, renal labs, imaging studies, telemetry/EKG's were reviewed. Justicifation of Admission Dx: Justifications for Admission: Justification of Admission Dx: Yes DAVIS ESQUEDA MD Mar 28, 2020 09:47
--- NOTE | 2020-03-28 10:25 | PDOC ---
PULMONARY PROGRESS NOTES DATE: 03/28/20 TIME: 10:21 Subjective Intubated 03/22 Patient remains on ventilatory support, FiO2 90% and a PEEP of 10, hypoxic on examination oxygen saturations in 70% Seen while on hemodialysis Patient continues to clinically decompensate Vitals Vital Signs Date Time Temp Pulse Resp B/P (MAP) Pulse Ox O2 Delivery O2 Flow Rate FiO2 03/28/20 08:05 86 Ventilator 03/28/20 07:00 99 32 108/55 (72) 03/28/20 04:00 97.6 97.6 03/28/20 01:00 40.0 Comments visual exam done due to COVID-19 intubated/sedated Tachycardia Ventilatory asynchrony He has acrocyanosis, worse on the right than the left abd obese no leg edema Labs Laboratory Tests Test 03/26/20 21:27 03/27/20 03:14 03/27/20 08:00 03/27/20 09:15 Heparin Anti-Xa Act, Unfractionated 0.67 IU/mL (0.30-0.70) 0.75 IU/mL (0.30-0.70) 0.53 IU/mL (0.30-0.70) White Blood Count 20.7 x10^3/uL (4.0-11.0) Red Blood Count 3.49 x10^6/uL (4.30-5.70) Hemoglobin 10.8 g/dL (13.0-17.5) Hematocrit 32.2 % (39.0-53.0) Mean Corpuscular Volume 92 fL (79-100) Mean Corpuscular Hemoglobin 31 pg (25-35) Mean Corpuscular Hemoglobin Concent 34 g/dL (31-37) Red Cell Distribution Width 12.7 % (11.5-14.5) Platelet Count 263 x10^3/uL (140-400) Neutrophils (%) (Auto) 84 % (31-73) Lymphocytes (%) (Auto) 3 % (24-48) Monocytes (%) (Auto) 13 % (0-9) Eosinophils (%) (Auto) 0 % (0-3) Basophils (%) (Auto) 0 % (0-3) Neutrophils # (Auto) 17.4 x10^3/uL (1.8-7.7) Lymphocytes # (Auto) 0.6 x10^3/uL (1.0-4.8) Monocytes # (Auto) 2.6 x10^3/uL (0.0-1.1) Eosinophils # (Auto) 0.0 x10^3/uL (0.0-0.7) Basophils # (Auto) 0.1 x10^3/uL (0.0-0.2) Sodium Level 140 mmol/L (136-145) Potassium Level 4.9 mmol/L (3.5-5.1) Chloride Level 104 mmol/L (98-107) Carbon Dioxide Level 32 mmol/L (21-32) Anion Gap 4 (6-14) Blood Urea Nitrogen 60 mg/dL (8-26) Creatinine 2.4 mg/dL (0.7-1.3) Estimated GFR (Cockcroft-Gault) 26.6 BUN/Creatinine Ratio 25 (6-20) Glucose Level 174 mg/dL (70-99) Calcium Level 7.6 mg/dL (8.5-10.1) Total Bilirubin 0.8 mg/dL (0.2-1.0) Aspartate Amino Transf (AST/SGOT) 97 U/L (15-37) Alanine Aminotransferase (ALT/SGPT) 61 U/L (16-63) Alkaline Phosphatase 48 U/L (46-116) Total Protein 5.5 g/dL (6.4-8.2) Albumin 1.4 g/dL (3.4-5.0) Albumin/Globulin Ratio 0.3 (1.0-1.7) O2 Saturation 95 % (92-99) Arterial Blood pH 7.30 (7.35-7.45) Arterial Blood pCO2 at Patient Temp 62 mmHg (35-46) Arterial Blood pO2 at Patient Temp 83 mmHg (65-108) Arterial Blood HCO3 30 mmol/L (21-28) Arterial Blood Base Excess 3 mmol/L (-3-3) FiO2 80%+10 Test 03/27/20 15:30 03/28/20 05:40 03/28/20 09:00 Heparin Anti-Xa Act, Unfractionated 0.68 IU/mL (0.30-0.70) White Blood Count 26.7 x10^3/uL (4.0-11.0) Red Blood Count 3.19 x10^6/uL (4.30-5.70) Hemoglobin 9.7 g/dL (13.0-17.5) Hematocrit 29.9 % (39.0-53.0) Mean Corpuscular Volume 94 fL (79-100) Mean Corpuscular Hemoglobin 31 pg (25-35) Mean Corpuscular Hemoglobin Concent 33 g/dL (31-37) Red Cell Distribution Width 13.0 % (11.5-14.5) Platelet Count 249 x10^3/uL (140-400) Neutrophils (%) (Auto) 88 % (31-73) Lymphocytes (%) (Auto) 2 % (24-48) Monocytes (%) (Auto) 10 % (0-9) Eosinophils (%) (Auto) 0 % (0-3) Basophils (%) (Auto) 0 % (0-3) Neutrophils # (Auto) 23.5 x10^3/uL (1.8-7.7) Lymphocytes # (Auto) 0.6 x10^3/uL (1.0-4.8) Monocytes # (Auto) 2.6 x10^3/uL (0.0-1.1) Eosinophils # (Auto) 0.0 x10^3/uL (0.0-0.7) Basophils # (Auto) 0.0 x10^3/uL (0.0-0.2) Sodium Level 143 mmol/L (136-145) Potassium Level 5.5 mmol/L (3.5-5.1) Chloride Level 107 mmol/L (98-107) Carbon Dioxide Level 29 mmol/L (21-32) Anion Gap 7 (6-14) Blood Urea Nitrogen 96 mg/dL (8-26) Creatinine 3.0 mg/dL (0.7-1.3) Estimated GFR (Cockcroft-Gault) 20.6 BUN/Creatinine Ratio 32 (6-20) Glucose Level 203 mg/dL (70-99) Calcium Level 7.9 mg/dL (8.5-10.1) Total Bilirubin 0.7 mg/dL (0.2-1.0) Aspartate Amino Transf (AST/SGOT) 72 U/L (15-37) Alanine Aminotransferase (ALT/SGPT) 59 U/L (16-63) Alkaline Phosphatase 64 U/L (46-116) Total Protein 5.5 g/dL (6.4-8.2) Albumin 1.4 g/dL (3.4-5.0) Albumin/Globulin Ratio 0.3 (1.0-1.7) O2 Saturation 65 % (92-99) Arterial Blood pH 7.22 (7.35-7.45) Arterial Blood pCO2 at Patient Temp 77 mmHg (35-46) Arterial Blood pO2 at Patient Temp < 42 mmHg (65-108) Arterial Blood HCO3 31 mmol/L (21-28) Arterial Blood Base Excess 2 mmol/L (-3-3) FiO2 90 Laboratory Tests Test 03/27/20 15:30 03/28/20 05:40 03/28/20 09:00 Heparin Anti-Xa Act, Unfractionated 0.68 IU/mL (0.30-0.70) White Blood Count 26.7 x10^3/uL (4.0-11.0) Red Blood Count 3.19 x10^6/uL (4.30-5.70) Hemoglobin 9.7 g/dL (13.0-17.5) Hematocrit 29.9 % (39.0-53.0) Mean Corpuscular Volume 94 fL (79-100) Mean Corpuscular Hemoglobin 31 pg (25-35) Mean Corpuscular Hemoglobin Concent 33 g/dL (31-37) Red Cell Distribution Width 13.0 % (11.5-14.5) Platelet Count 249 x10^3/uL (140-400) Neutrophils (%) (Auto) 88 % (31-73) Lymphocytes (%) (Auto) 2 % (24-48) Monocytes (%) (Auto) 10 % (0-9) Eosinophils (%) (Auto) 0 % (0-3) Basophils (%) (Auto) 0 % (0-3) Neutrophils # (Auto) 23.5 x10^3/uL (1.8-7.7) Lymphocytes # (Auto) 0.6 x10^3/uL (1.0-4.8) Monocytes # (Auto) 2.6 x10^3/uL (0.0-1.1) Eosinophils # (Auto) 0.0 x10^3/uL (0.0-0.7) Basophils # (Auto) 0.0 x10^3/uL (0.0-0.2) Sodium Level 143 mmol/L (136-145) Potassium Level 5.5 mmol/L (3.5-5.1) Chloride Level 107 mmol/L (98-107) Carbon Dioxide Level 29 mmol/L (21-32) Anion Gap 7 (6-14) Blood Urea Nitrogen 96 mg/dL (8-26) Creatinine 3.0 mg/dL (0.7-1.3) Estimated GFR (Cockcroft-Gault) 20.6 BUN/Creatinine Ratio 32 (6-20) Glucose Level 203 mg/dL (70-99) Calcium Level 7.9 mg/dL (8.5-10.1) Total Bilirubin 0.7 mg/dL (0.2-1.0) Aspartate Amino Transf (AST/SGOT) 72 U/L (15-37) Alanine Aminotransferase (ALT/SGPT) 59 U/L (16-63) Alkaline Phosphatase 64 U/L (46-116) Total Protein 5.5 g/dL (6.4-8.2) Albumin 1.4 g/dL (3.4-5.0) Albumin/Globulin Ratio 0.3 (1.0-1.7) O2 Saturation 65 % (92-99) Arterial Blood pH 7.22 (7.35-7.45) Arterial Blood pCO2 at Patient Temp 77 mmHg (35-46) Arterial Blood pO2 at Patient Temp < 42 mmHg (65-108) Arterial Blood HCO3 31 mmol/L (21-28) Arterial Blood Base Excess 2 mmol/L (-3-3) FiO2 90 Comments CXR reviewed Interval progression of bilateral parenchymal airspace opacities ett ok Impression . IMPRESSION: 1. Acute hypoxic respiratory failure due to COVID-19 viral pneumonia/ ARDS/ALI. -Intubated 03/22 with worsening respiratory distress,hypoxia now in shock, multi-system organ failure, markedly elevated D-dIMER 2. [id number] myocardial infarction/ Afib 3. History of alcoholism. 4. Moderate to severe protein-calorie malnutrition. 5. Abnormal troponin with non-ST myocardial infarction. 6. COVID- positive 7. Shock, viral sepsis 8. MICHAEL due to shock/ COVID -19 9. Markedly elevated D-Dimer. need to fully anti-coagulate due to high risk for VTE Plan . RECOMMENDATIONS: Continue current vent support A/C mode currently on an FiO2 of 90% and a PEEP of 10----ABG shows respiratory acidosis, pH 7.22, PCO2 77, PO2 of 37 and a bicarbonate of 30 Follow CXR/ABG --increase FiO2 to 100% COVID-19 positive Follow nephrology recommendations, currently on hemodialysis Continue full 10 day course of steroids, started on March 19, 2020, okay to DC steroids on March 29 Patient is completed full course of remdesivir Continue abx, on Zosyn and doxycycline-- D/C doxy has competed full course Follow cardiology recs Continue tube feeding for nutritional support DVT/GI PPX D/W RN and RT Very poor prognosis, critically ill, likely not to survive Discussed with daughter Mari, agreed to DO NOT RESUSCITATE, will discuss palliative care Critical care time [id number] PRINCE STACY MD Mar 28, 2020 10:25
--- NOTE | 2020-03-28 11:21 | NUR ---
patient's daughter Mari at bedside, wishes to keep patient full code and on ventilator. 3 bags of patient belongings sent home with daughter including patient's phone, glasses, shoes, clothing and clip on lamp.
[2020-03-28] MEDS: ANTI-COAG MONITOR BY PHARMACY. MC PRN (12:40)
--- NOTE | 2020-03-28 16:12 | PDOC ---
PROGRESS NOTES Date of Service: DATE: 03/28/20 TIME: 16:05 Chief Complaint Chief Complaint NSTEMI, acute systolic CHF, sepsis, hypotension [place] [id number] Acute hypoxic respiratory failure sepsis, shock, New onset atrial fibrillation severe Malnutrition acute renal failure, tried to hemodialysis today, could not tolerate due to tachycardia and hypotension, History of Present Illness History of Present Illness 03/28/2020 Patient seen and examined in the [place] [id number] ICU heis still intubated hypontensive, tachy, will give some fluid, no urine output, prog poor Assist-control Sedated with Versed fentanyl On heparin drip IV abx Discussed with RN Chart reviewed He remains critically ill Vitals Vitals Vital Signs Date Time Temp Pulse Resp B/P (MAP) Pulse Ox O2 Delivery O2 Flow Rate FiO2 03/28/20 15:50 78 Ventilator 03/28/20 14:00 109 30 85/50 (62) 03/28/20 12:00 99.5 99.5 03/28/20 01:00 40.0 Physical Exam General: Other (INTUBATED) Heart: Regular rate Abdomen: Normal bowel sounds, Soft, No tenderness Extremities: No cyanosis Skin: No rashes, No breakdown Labs LABS Laboratory Tests Test 03/28/20 05:40 03/28/20 09:00 White Blood Count 26.7 x10^3/uL (4.0-11.0) Red Blood Count 3.19 x10^6/uL (4.30-5.70) Hemoglobin 9.7 g/dL (13.0-17.5) Hematocrit 29.9 % (39.0-53.0) Mean Corpuscular Volume 94 fL (79-100) Mean Corpuscular Hemoglobin 31 pg (25-35) Mean Corpuscular Hemoglobin Concent 33 g/dL (31-37) Red Cell Distribution Width 13.0 % (11.5-14.5) Platelet Count 249 x10^3/uL (140-400) Neutrophils (%) (Auto) 88 % (31-73) Lymphocytes (%) (Auto) 2 % (24-48) Monocytes (%) (Auto) 10 % (0-9) Eosinophils (%) (Auto) 0 % (0-3) Basophils (%) (Auto) 0 % (0-3) Neutrophils # (Auto) 23.5 x10^3/uL (1.8-7.7) Lymphocytes # (Auto) 0.6 x10^3/uL (1.0-4.8) Monocytes # (Auto) 2.6 x10^3/uL (0.0-1.1) Eosinophils # (Auto) 0.0 x10^3/uL (0.0-0.7) Basophils # (Auto) 0.0 x10^3/uL (0.0-0.2) Sodium Level 143 mmol/L (136-145) Potassium Level 5.5 mmol/L (3.5-5.1) Chloride Level 107 mmol/L (98-107) Carbon Dioxide Level 29 mmol/L (21-32) Anion Gap 7 (6-14) Blood Urea Nitrogen 96 mg/dL (8-26) Creatinine 3.0 mg/dL (0.7-1.3) Estimated GFR (Cockcroft-Gault) 20.6 BUN/Creatinine Ratio 32 (6-20) Glucose Level 203 mg/dL (70-99) Calcium Level 7.9 mg/dL (8.5-10.1) Total Bilirubin 0.7 mg/dL (0.2-1.0) Aspartate Amino Transf (AST/SGOT) 72 U/L (15-37) Alanine Aminotransferase (ALT/SGPT) 59 U/L (16-63) Alkaline Phosphatase 64 U/L (46-116) Total Protein 5.5 g/dL (6.4-8.2) Albumin 1.4 g/dL (3.4-5.0) Albumin/Globulin Ratio 0.3 (1.0-1.7) O2 Saturation 65 % (92-99) Arterial Blood pH 7.22 (7.35-7.45) Arterial Blood pCO2 at Patient Temp 77 mmHg (35-46) Arterial Blood pO2 at Patient Temp < 42 mmHg (65-108) Arterial Blood HCO3 31 mmol/L (21-28) Arterial Blood Base Excess 2 mmol/L (-3-3) FiO2 90 Assessment and Plan Assessmemt and Plan prog poor Comment Review of Relevant I have reviewed the following items ángela (where applicable) has been applied. Labs Laboratory Tests Test 03/26/20 21:27 03/27/20 03:14 03/27/20 08:00 03/27/20 09:15 Heparin Anti-Xa Act, Unfractionated 0.67 IU/mL (0.30-0.70) 0.75 IU/mL (0.30-0.70) 0.53 IU/mL (0.30-0.70) White Blood Count 20.7 x10^3/uL (4.0-11.0) Red Blood Count 3.49 x10^6/uL (4.30-5.70) Hemoglobin 10.8 g/dL (13.0-17.5) Hematocrit 32.2 % (39.0-53.0) Mean Corpuscular Volume 92 fL (79-100) Mean Corpuscular Hemoglobin 31 pg (25-35) Mean Corpuscular Hemoglobin Concent 34 g/dL (31-37) Red Cell Distribution Width 12.7 % (11.5-14.5) Platelet Count 263 x10^3/uL (140-400) Neutrophils (%) (Auto) 84 % (31-73) Lymphocytes (%) (Auto) 3 % (24-48) Monocytes (%) (Auto) 13 % (0-9) Eosinophils (%) (Auto) 0 % (0-3) Basophils (%) (Auto) 0 % (0-3) Neutrophils # (Auto) 17.4 x10^3/uL (1.8-7.7) Lymphocytes # (Auto) 0.6 x10^3/uL (1.0-4.8) Monocytes # (Auto) 2.6 x10^3/uL (0.0-1.1) Eosinophils # (Auto) 0.0 x10^3/uL (0.0-0.7) Basophils # (Auto) 0.1 x10^3/uL (0.0-0.2) Sodium Level 140 mmol/L (136-145) Potassium Level 4.9 mmol/L (3.5-5.1) Chloride Level 104 mmol/L (98-107) Carbon Dioxide Level 32 mmol/L (21-32) Anion Gap 4 (6-14) Blood Urea Nitrogen 60 mg/dL (8-26) Creatinine 2.4 mg/dL (0.7-1.3) Estimated GFR (Cockcroft-Gault) 26.6 BUN/Creatinine Ratio 25 (6-20) Glucose Level 174 mg/dL (70-99) Calcium Level 7.6 mg/dL (8.5-10.1) Total Bilirubin 0.8 mg/dL (0.2-1.0) Aspartate Amino Transf (AST/SGOT) 97 U/L (15-37) Alanine Aminotransferase (ALT/SGPT) 61 U/L (16-63) Alkaline Phosphatase 48 U/L (46-116) Total Protein 5.5 g/dL (6.4-8.2) Albumin 1.4 g/dL (3.4-5.0) Albumin/Globulin Ratio 0.3 (1.0-1.7) O2 Saturation 95 % (92-99) Arterial Blood pH 7.30 (7.35-7.45) Arterial Blood pCO2 at Patient Temp 62 mmHg (35-46) Arterial Blood pO2 at Patient Temp 83 mmHg (65-108) Arterial Blood HCO3 30 mmol/L (21-28) Arterial Blood Base Excess 3 mmol/L (-3-3) FiO2 80%+10 Test 03/27/20 15:30 03/28/20 05:40 03/28/20 09:00 Heparin Anti-Xa Act, Unfractionated 0.68 IU/mL (0.30-0.70) White Blood Count 26.7 x10^3/uL (4.0-11.0) Red Blood Count 3.19 x10^6/uL (4.30-5.70) Hemoglobin 9.7 g/dL (13.0-17.5) Hematocrit 29.9 % (39.0-53.0) Mean Corpuscular Volume 94 fL (79-100) Mean Corpuscular Hemoglobin 31 pg (25-35) Mean Corpuscular Hemoglobin Concent 33 g/dL (31-37) Red Cell Distribution Width 13.0 % (11.5-14.5) Platelet Count 249 x10^3/uL (140-400) Neutrophils (%) (Auto) 88 % (31-73) Lymphocytes (%) (Auto) 2 % (24-48) Monocytes (%) (Auto) 10 % (0-9) Eosinophils (%) (Auto) 0 % (0-3) Basophils (%) (Auto) 0 % (0-3) Neutrophils # (Auto) 23.5 x10^3/uL (1.8-7.7) Lymphocytes # (Auto) 0.6 x10^3/uL (1.0-4.8) Monocytes # (Auto) 2.6 x10^3/uL (0.0-1.1) Eosinophils # (Auto) 0.0 x10^3/uL (0.0-0.7) Basophils # (Auto) 0.0 x10^3/uL (0.0-0.2) Sodium Level 143 mmol/L (136-145) Potassium Level 5.5 mmol/L (3.5-5.1) Chloride Level 107 mmol/L (98-107) Carbon Dioxide Level 29 mmol/L (21-32) Anion Gap 7 (6-14) Blood Urea Nitrogen 96 mg/dL (8-26) Creatinine 3.0 mg/dL (0.7-1.3) Estimated GFR (Cockcroft-Gault) 20.6 BUN/Creatinine Ratio 32 (6-20) Glucose Level 203 mg/dL (70-99) Calcium Level 7.9 mg/dL (8.5-10.1) Total Bilirubin 0.7 mg/dL (0.2-1.0) Aspartate Amino Transf (AST/SGOT) 72 U/L (15-37) Alanine Aminotransferase (ALT/SGPT) 59 U/L (16-63) Alkaline Phosphatase 64 U/L (46-116) Total Protein 5.5 g/dL (6.4-8.2) Albumin 1.4 g/dL (3.4-5.0) Albumin/Globulin Ratio 0.3 (1.0-1.7) O2 Saturation 65 % (92-99) Arterial Blood pH 7.22 (7.35-7.45) Arterial Blood pCO2 at Patient Temp 77 mmHg (35-46) Arterial Blood pO2 at Patient Temp < 42 mmHg (65-108) Arterial Blood HCO3 31 mmol/L (21-28) Arterial Blood Base Excess 2 mmol/L (-3-3) FiO2 90 Laboratory Tests Test 03/28/20 05:40 03/28/20 09:00 White Blood Count 26.7 x10^3/uL (4.0-11.0) Red Blood Count 3.19 x10^6/uL (4.30-5.70) Hemoglobin 9.7 g/dL (13.0-17.5) Hematocrit 29.9 % (39.0-53.0) Mean Corpuscular Volume 94 fL (79-100) Mean Corpuscular Hemoglobin 31 pg (25-35) Mean Corpuscular Hemoglobin Concent 33 g/dL (31-37) Red Cell Distribution Width 13.0 % (11.5-14.5) Platelet Count 249 x10^3/uL (140-400) Neutrophils (%) (Auto) 88 % (31-73) Lymphocytes (%) (Auto) 2 % (24-48) Monocytes (%) (Auto) 10 % (0-9) Eosinophils (%) (Auto) 0 % (0-3) Basophils (%) (Auto) 0 % (0-3) Neutrophils # (Auto) 23.5 x10^3/uL (1.8-7.7) Lymphocytes # (Auto) 0.6 x10^3/uL (1.0-4.8) Monocytes # (Auto) 2.6 x10^3/uL (0.0-1.1) Eosinophils # (Auto) 0.0 x10^3/uL (0.0-0.7) Basophils # (Auto) 0.0 x10^3/uL (0.0-0.2) Sodium Level 143 mmol/L (136-145) Potassium Level 5.5 mmol/L (3.5-5.1) Chloride Level 107 mmol/L (98-107) Carbon Dioxide Level 29 mmol/L (21-32) Anion Gap 7 (6-14) Blood Urea Nitrogen 96 mg/dL (8-26) Creatinine 3.0 mg/dL (0.7-1.3) Estimated GFR (Cockcroft-Gault) 20.6 BUN/Creatinine Ratio 32 (6-20) Glucose Level 203 mg/dL (70-99) Calcium Level 7.9 mg/dL (8.5-10.1) Total Bilirubin 0.7 mg/dL (0.2-1.0) Aspartate Amino Transf (AST/SGOT) 72 U/L (15-37) Alanine Aminotransferase (ALT/SGPT) 59 U/L (16-63) Alkaline Phosphatase 64 U/L (46-116) Total Protein 5.5 g/dL (6.4-8.2) Albumin 1.4 g/dL (3.4-5.0) Albumin/Globulin Ratio 0.3 (1.0-1.7) O2 Saturation 65 % (92-99) Arterial Blood pH 7.22 (7.35-7.45) Arterial Blood pCO2 at Patient Temp 77 mmHg (35-46) Arterial Blood pO2 at Patient Temp < 42 mmHg (65-108) Arterial Blood HCO3 31 mmol/L (21-28) Arterial Blood Base Excess 2 mmol/L (-3-3) FiO2 90 Medications Current Medications Heparin Sodium (Porcine) (Heparin Sodium) 2,200 unit PRN Q6HRS PRN IV FOR UFH LEVEL LESS THAN 0.2 Last administered on 03/17/20at 23:12; Start 03/17/20 at 20:45; Stop 03/18/20 at 12:30; Status DC Heparin Sodium/ Dextrose 250 ml @ 0 mls/hr CONT PRN IV PER PROTOCOL Last administered on 03/18/20at 06:19; Start 03/17/20 at 21:00; Stop 03/18/20 at 12:30; Status DC Heparin Sodium (Porcine) (Heparin Sodium) 2,200 unit PRN Q6HRS PRN IV FOR UFH LEVEL LESS THAN 0.2; Start 03/17/20 at 21:00; Stop 03/17/20 at 20:57; Status DC Sodium Chloride (Normal Saline Flush) 3 ml PRN DAILY PRN IV AFTER MEDS AND BLOOD DRAWS; Start 03/17/20 at 21:00 Tramadol HCl (Ultram) 50 mg PRN Q6HRS PRN PO PAIN Last administered on 03/18/20at 02:41; Start 03/17/20 at 22:45 Morphine Sulfate (Morphine Sulfate) 4 mg PRN Q2HR PRN IV MODERATE PAIN, SEVERE PAIN Last administered on 03/22/20at 09:02; Start 03/17/20 at 22:45; Stop 03/26/20 at 02:46; Status DC Ondansetron HCl (Zofran) 4 mg PRN Q6HRS PRN IVP NAUSEA/VOMITING; Start 03/17/20 at 22:45 Al Hydroxide/Mg Hydroxide (Mylanta Plus Xs) 30 ml PRN Q3HRS PRN PO HEARTBURN / GAS; Start 03/17/20 at 22:45 Calcium Carbonate/ Glycine (Tums) 500 mg PRN Q3HRS PRN PO UPSET STOMACH; Start 03/17/20 at 22:45 Morphine Sulfate (Morphine Sulfate) 2 mg PRN Q1HR PRN IV MILD PAIN 1-3; Start 03/17/20 at 22:45; Stop 03/26/20 at 02:47; Status DC Acetaminophen (Tylenol) 650 mg PRN Q6HRS PRN PO Headaches, Temp > 101.5F Last administered on 03/26/20at 21:04; Start 03/17/20 at 22:45 Magnesium Hydroxide (Milk Of Magnesia) 2,400 mg PRN Q12HR PRN PO CONSTIPATION; Start 03/17/20 at 22:45 Bisacodyl (Dulcolax Supp) 10 mg PRN DAILY PRN PA CONSTIPATION; Start 03/17/20 at 22:45 Aspirin (Ecotrin) 81 mg DAILYWBKFT PO Last administered on 03/28/20at 08:25; Start 03/18/20 at 09:00 Furosemide (Lasix) 40 mg 1X ONCE IVP Last administered on 03/18/20at 09:02; Start 03/18/20 at 09:00; Stop 03/18/20 at 09:01; Status DC Ceftriaxone Sodium (Rocephin) 1 gm Q24H IVP Last administered on 03/21/20at 11:22; Start 03/18/20 at 11:00; Stop 03/22/20 at 11:46; Status DC Doxycycline Hyclate 100 mg/ Dextrose 100 ml @ 50 mls/hr Q12HR IV Last administered on 03/28/20at 08:26; Start 03/18/20 at 11:00; Stop 03/28/20 at 13:47; Status DC Dexamethasone Sodium Phosphate (Decadron) 6 mg DAILY IVP Last administered on 03/24/20at 08:02; Start 03/19/20 at 09:00; Stop 03/24/20 at 11:47; Status DC Insulin Human Lispro (HumaLOG) 0-9 UNITS TIDWMEALS SQ ; Start 03/18/20 at 17:00; Stop 03/21/20 at 09:00; Status DC Dextrose (Dextrose 50%-Water Syringe) 12.5 gm PRN Q15MIN PRN IV SEE COMMENTS; Start 03/18/20 at 12:15; Status Cancel Dexamethasone Sodium Phosphate (Decadron) 6 mg 1X ONCE IVP Last administered on 03/18/20at 12:49; Start 03/18/20 at 13:00; Stop 03/18/20 at 13:01; Status DC Ascorbic Acid (Vitamin C) 500 mg Q6HRS PO Last administered on 03/20/20at 23:52; Start 03/18/20 at 13:00; Stop 03/21/20 at 12:02; Status DC Vitamin D (Vitamin D3) 5,000 unit DAILY PO Last administered on 03/28/20at 08:25; Start 03/18/20 at 13:00 Remdesivir 200 mg/ Sodium Chloride 210 ml @ 210 mls/hr 1X ONCE IV Last administered on 03/18/20at 13:42; Start 03/18/20 at 13:00; Stop 03/18/20 at 13:59; Status DC Remdesivir 100 mg/ Sodium Chloride 230 ml @ 460 mls/hr Q24H IV Last administered on 03/22/20at 14:05; Start 03/19/20 at 13:00; Stop 03/22/20 at 13:29; Status DC Enoxaparin Sodium (Lovenox 40mg Syringe) 40 mg Q24H SQ Last administered on 03/18/20at 12:51; Start 03/18/20 at 13:00; Stop 03/19/20 at 09:01; Status DC Atorvastatin Calcium (Lipitor) 10 mg QHS PO Last administered on 03/27/20at 21:39; Start 03/18/20 at 21:00 Sterile Water (WATER for RESP) 1,000 ml CONT PRN INH VIA VAPOTHERM DEVICE Last administered on 03/19/20at 00:00; Start 03/19/20 at 00:00 Enoxaparin Sodium (Lovenox 40mg Syringe) 40 mg Q12HR SQ Last administered on 03/23/20at 08:52; Start 03/19/20 at 09:00; Stop 03/23/20 at 11:20; Status DC Amino Acids/ Glycerin/ Electrolytes 1,000 ml @ 80 mls/hr [id number] IV Last administered on 03/21/20at 13:27; Start 03/19/20 at 09:30; Stop 03/22/20 at 13:53; Status DC Dexmedetomidine HCl 400 mcg/ Sodium Chloride 100 ml @ 4.46 mls/hr CONT PRN IV PER PROTOCOL Last administered on 03/28/20at 11:01; Start 03/19/20 at 13:30 Sodium Chloride 500 ml @ 500 mls/hr 1X PRN PRN IV SEE COMMENTS Last administered on 03/23/20at 04:57; Start 03/19/20 at 13:30 Atropine Sulfate (ATROPINE 0.5mg SYRINGE) 0.5 mg PRN Q5MIN PRN IV SEE COMMENTS; Start 03/19/20 at 13:30 Lactobacillus Rhamnosus (Culturelle) 1 cap BID PO Last administered on 03/25/20at 21:25; Start 03/19/20 at 21:00; Stop 03/26/20 at 07:40; Status DC Guaifenesin (MUCINEX ER with DM) 1 tab BID PO Last administered on 03/21/20at 07:56; Start 03/19/20 at 22:00; Stop 03/22/20 at 20:47; Status DC Guaifenesin (Robitussin) 200 mg PRN Q6HRS PRN PO COUGH- 1ST CHOICE Last administered on 03/21/20at 12:53; Start 03/20/20 at 23:45 Benzonatate (Tessalon Perle) 100 mg PRN TID PRN PO Cough Last administered on 03/21/20at 12:44; Start 03/20/20 at 23:45 Ascorbic Acid (Vitamin C) 500 mg DAILY PO Last administered on 03/28/20at 08:25; Start 03/22/20 at 09:00 Saliva Substitute (Biotene Moisturizing Mouth) 2 spray PRN Q15MIN PRN PO DRY MOUTH Last administered on 03/21/20at 17:36; Start 03/21/20 at 16:00 Propofol 0 ml @ As Directed STK-MED ONCE IV ; Start 03/22/20 at 10:01; Stop 03/22/20 at 10:01; Status DC Succinylcholine Chloride (Anectine) 200 mg STK-MED ONCE .ROUTE ; Start 03/22/20 at 10:01; Stop 03/22/20 at 10:02; Status DC Etomidate (Amidate) 20 mg STK-MED ONCE IV ; Start 03/22/20 at 10:03; Stop 03/22/20 at 10:03; Status DC Succinylcholine Chloride (Anectine) 100 mg 1X ONCE IV Last administered on 03/22/20at 10:18; Start 03/22/20 at 10:15; Stop 03/22/20 at 10:16; Status DC Etomidate (Amidate) 12 mg 1X ONCE IV Last administered on 03/22/20at 10:19; Start 03/22/20 at 10:15; Stop 03/22/20 at 10:16; Status DC Fentanyl Citrate 30 ml @ 0 mls/hr CONT PRN IV SEE PROTOCOL Last administered on 03/24/20at 09:14; Start 03/22/20 at 10:15; Stop 03/24/20 at 15:39; Status DC Propofol 100 ml @ 0 mls/hr CONT PRN IV PER PROTOCOL; Start 03/22/20 at 10:15 Midazolam HCl 100 ml @ 0 mls/hr CONT PRN IV SEE PROTOCOL Last administered on 03/28/20at 11:01; Start 03/22/20 at 10:15 Midazolam HCl (Versed) 5 mg 1X ONCE IV Last administered on 03/22/20at 10:19; Start 03/22/20 at 10:15; Stop 03/22/20 at 10:16; Status DC Vecuronium [place] (Norcuron Bolus) 10 mg STK-MED ONCE IV ; Start 03/22/20 at 10:49; Stop 03/22/20 at 10:49; Status DC Vecuronium [place] (Norcuron Bolus) 6 mg 1X ONCE IV Last administered on 03/22/20at 11:20; Start 03/22/20 at 10:15; Stop 03/22/20 at 10:53; Status DC Vecuronium [place] (Norcuron Bolus) 10 mg PRN Q4HRS PRN IV NEEDED FOR SEDATION Last administered on 03/28/20at 12:28; Start 03/22/20 at 11:00 Furosemide (Lasix) 40 mg 1X ONCE IVP Last administered on 03/22/20at 12:24; Start 03/22/20 at 11:45; Stop 03/22/20 at 11:48; Status DC Piperacillin Sod/ Tazobactam Sod (Zosyn Per Pharmacy) 1 each PRN DAILY PRN MC SEE COMMENTS; Start 03/22/20 at 11:45; Stop 03/28/20 at 13:50; Status DC Sodium Bicarbonate (Sodium Bicarb Adult 8.4% Syr) 50 meq 1X ONCE IV Last administered on 03/22/20at 12:23; Start 03/22/20 at 11:45; Stop 03/22/20 at 11:50; Status DC Piperacillin Sod/ Tazobactam Sod 4.5 gm/Sodium Chloride 100 ml @ 200 mls/hr Q6HRS IV Last administered on 03/25/20at 05:45; Start 03/22/20 at 12:00; Stop 03/25/20 at 08:24; Status DC Norepinephrine Bitartrate 8 mg/ Dextrose 258 ml @ 18.015 mls/ hr CONT PRN IV PER PROTOCOL Last administered on 03/26/20at 17:33; Start 03/22/20 at 16:30 Sodium Bicarbonate (Sodium Bicarb Adult 8.4% Syr) 50 meq 1X ONCE IV Last administered on 03/23/20at 11:27; Start 03/23/20 at 10:45; Stop 03/23/20 at 10:46; Status DC Heparin Sodium/ Dextrose 250 ml @ 0 mls/hr CONT PRN IV PER PROTOCOL Last administered on 03/25/20at 10:53; Start 03/23/20 at 11:15; Stop 03/25/20 at 13:11; Status DC Heparin Sodium (Porcine) (Heparin Sodium) 2,800 unit PRN Q6HRS PRN IV FOR UFH LEVEL LESS THAN 0.2 Last administered on 03/23/20at 12:33; Start 03/23/20 at 11:15; Stop 03/25/20 at 13:11; Status DC Heparin Sodium (Porcine) (Heparin Sodium) 1,400 unit PRN Q6HRS PRN IV FOR UFH LEVEL 0.2 - 0.29; Start 03/23/20 at 11:15; Stop 03/25/20 at 13:12; Status DC Propofol (Diprivan) 1,000 mg STK-MED ONCE IV ; Start 03/22/20 at 10:00; Stop 03/23/20 at 12:17; Status DC Info (Anti-Coagulation Monitoring By Pharmacy) 1 each PRN DAILY PRN MC SEE COMMENTS Last administered on 03/23/20at 12:34; Start 03/23/20 at 12:45; Stop 03/25/20 at 13:12; Status DC Famotidine (Pepcid Vial) 20 mg BID IVP Last administered on 03/24/20at 08:03; Start 03/23/20 at 21:00; Stop 03/24/20 at 15:08; Status DC Dexamethasone Sodium Phosphate (Decadron) 4 mg DAILY IVP Last administered on 03/28/20at 08:25; Start 03/25/20 at 09:00 Famotidine (Pepcid Vial) 20 mg DAILY IVP Last administered on 03/28/20at 08:25; Start 03/25/20 at 09:00 Fentanyl Citrate 55 ml @ 0 mls/hr CONT PRN PRN IV SEE PROTOCOL Last administered on 03/28/20at 00:29; Start 03/24/20 at 15:45 Piperacillin Sod/ Tazobactam Sod 3.375 gm/Sodium Chloride 50 ml @ 100 mls/hr Q6HRS IV Last administered on 03/25/20at 10:54; Start 03/25/20 at 12:00; Stop 03/25/20 at 15:49; Status DC Insulin Human Lispro (HumaLOG) 0-5 UNITS Q6HRS SQ Last administered on 03/28/20at 06:08; Start 03/25/20 at 12:00 Dextrose (Dextrose 50%-Water Syringe) 12.5 gm PRN Q15MIN PRN IV SEE COMMENTS; Start 03/25/20 at 09:00 Sodium Bicarbonate (Sodium Bicarb Adult 8.4% Syr) 100 meq 1X ONCE IV Last administered on 03/25/20at 09:20; Start 03/25/20 at 09:00; Stop 03/25/20 at 09:01; Status DC Lidocaine HCl (Buffered Lidocaine 1%) 3 ml 1X ONCE INJ Last administered on 03/25/20at 11:45; Start 03/25/20 at 11:00; Stop 03/25/20 at 11:01; Status DC Heparin Sodium (Porcine) (Heparin Sodium) 2,500 unit 1X ONCE INT CAT Last ad ministered on 03/25/20at 11:45; Start 03/25/20 at 11:00; Stop 03/25/20 at 11:01; Status DC Heparin Sodium (Porcine) (Hep Lock Adult) 500 unit STK-MED ONCE IVP ; Start 03/25/20 at 10:51; Stop 03/25/20 at 10:51; Status DC Heparin Sodium (Porcine) (Heparin Sodium) 10,000 unit STK-MED ONCE .ROUTE ; Start 03/25/20 at 10:54; Stop 03/25/20 at 10:54; Status DC Sodium Chloride 1,000 ml @ 1,000 mls/hr Q1H PRN IV hypotension; Start 03/25/20 at 13:00; Stop 03/25/20 at 18:59; Status DC Albumin Human 200 ml @ 200 mls/hr 1X PRN PRN IV Hypotension; Start 03/25/20 at 13:00; Stop 03/25/20 at 18:59; Status DC Sodium Chloride (Normal Saline Flush) 10 ml 1X PRN PRN IV AP catheter pack; Start 03/25/20 at 13:00; Stop 03/26/20 at 12:59; Status DC Sodium Chloride (Normal Saline Flush) 10 ml 1X PRN PRN IV TALENT ACQUISITION ASSISTANT catheter pack; Start 03/25/20 at 13:00; Stop 03/26/20 at 12:59; Status DC Sodium Chloride 1,000 ml @ 400 mls/hr Q2H30M PRN IV PATENCY; Start 03/25/20 at 13:00; Stop 03/26/20 at 00:59; Status DC Info (PHARMACY MONITORING -- do not chart) 1 each PRN DAILY PRN MC SEE COMMENTS; Start 03/25/20 at 13:00; Stop 03/26/20 at 10:54; Status DC Info (PHARMACY MONITORING -- do not chart) 1 each PRN DAILY PRN MC SEE COMMENTS; Start 03/25/20 at 13:00; Status Cancel Piperacillin Sod/ Tazobactam Sod 2.25 gm/Sodium Chloride 50 ml @ 100 mls/hr Q6HRS IV Last administered on 03/28/20at 12:26; Start 03/25/20 at 18:00; Stop 03/28/20 at 13:02; Status DC Digoxin (Lanoxin) 250 mcg 1X ONCE IV Last administered on 03/26/20at 01:28; Start 03/26/20 at 01:30; Stop 03/26/20 at 01:31; Status DC Heparin Sodium/ Dextrose 250 ml @ 14.88 mls/ hr CONT PRN IV PER PROTOCOL Last administered on 03/28/20at 02:12; Start 03/26/20 at 14:15 Heparin Sodium (Porcine) (Heparin Sodium) 2,800 unit PRN Q6HRS PRN IV FOR UFH LEVEL LESS THAN 0.2 Last administered on 03/26/20at 15:05; Start 03/26/20 at 14:15 Heparin Sodium (Porcine) (Heparin Sodium) 1,400 unit PRN Q6HRS PRN IV FOR UFH LEVEL 0.2 - 0.29; Start 03/26/20 at 14:15 Sodium Chloride 1,000 ml @ 1,000 mls/hr Q1H PRN IV hypotension; Start 03/26/20 at 15:45; Stop 03/26/20 at 21:44; Status DC Albumin Human 200 ml @ 200 mls/hr 1X PRN PRN IV Hypotension; Start 03/26/20 at 15:45; Stop 03/26/20 at 21:44; Status DC Sodium Chloride (Normal Saline Flush) 10 ml 1X PRN PRN IV AP catheter pack; Start 03/26/20 at 15:45; Stop 03/27/20 at 15:44; Status DC Sodium Chloride (Normal Saline Flush) 10 ml 1X PRN PRN IV TALENT [employer]ISTANT catheter pack; Start 03/26/20 at 15:45; Stop 03/27/20 at 15:44; Status DC Sodium Chloride 1,000 ml @ 400 mls/hr Q2H30M PRN IV PATENCY; Start 03/26/20 at 15:45; Stop 03/27/20 at 03:44; Status DC Info (PHARMACY MONITORING -- do not chart) 1 each PRN DAILY PRN MC SEE COMMENTS; Start 03/26/20 at 15:45; Status Cancel Info (PHARMACY MONITORING -- do not chart) 1 each PRN DAILY PRN MC SEE COMMENTS; Start 03/26/20 at 15:45 Digoxin (Lanoxin) 500 mcg 1X ONCE IV Last administered on 03/27/20at 21:39; Start 03/27/20 at 22:00; Stop 03/27/20 at 22:01; Status DC Info (Anti-Coagulation Monitoring By Pharmacy) 1 each PRN DAILY PRN MC SEE COMMENTS Last administered on 03/28/20at 12:40; Start 03/28/20 at 08:00 Albumin Human 200 ml @ 200 mls/hr 1X PRN PRN IV Hypotension Last administered on 03/28/20at 09:31; Start 03/28/20 at 09:15; Stop 03/28/20 at 15:14; Status DC Info (PHARMACY MONITORING -- do not chart) 1 each PRN DAILY PRN MC SEE COMMENTS; Start 03/28/20 at 09:15 Piperacillin Sod/ Tazobactam Sod 2.25 gm/Sodium Chloride 50 ml @ 100 mls/hr Q8HRS IV ; Start 03/28/20 at 21:00; Stop 03/28/20 at 13:47; Status DC Vitals/I & O Vital Sign - Last 24 Hours 03/27/20 03/27/20 03/27/20 03/27/20 16:11 17:00 18:00 19:00 Temp 98.1 98.1 Pulse 99 99 104 Resp 33 32 32 B/P (MAP) 122/66 (84) 124/68 (86) 98/56 (70) Pulse Ox 95 97 96 96 O2 Delivery Ventilator Ventilator Ventilator Ventilator 03/27/20 03/27/20 03/27/20 03/27/20 20:00 20:00 21:00 21:05 Pulse 138 162 Resp 32 32 B/P (MAP) 110/62 (78) 102/62 (75) Pulse Ox 97 98 95 O2 Delivery Mechanical Ventilator Ventilator Ventilator Ventilator 03/27/20 03/27/20 03/27/20 03/28/20 21:39 22:00 23:00 00:00 Pulse 140 90 102 Resp 32 B/P (MAP) 88/55 94/54 (67) 106/56 (73) Pulse Ox 97 97 O2 Delivery Ventilator Ventilator Mechanical Ventilator 03/28/20 03/28/20 03/28/20 03/28/20 00:00 00:15 00:29 01:00 Temp 98.5 98.5 Pulse 104 B/P (MAP) 112/58 (76) Pulse Ox 95 90 95 95 O2 Delivery Ventilator Ventilator Ventilator Ventilator O2 Flow Rate 40.0 40.0 03/28/20 03/28/20 03/28/20 03/28/20 01:00 02:00 03:00 03:45 Pulse 106 96 96 B/P (MAP) 118/62 (80) 104/56 (72) 102/54 (70) Pulse Ox 94 94 93 93 O2 Delivery Ventilator Ventilator Ventilator Ventilator 03/28/20 03/28/20 03/28/20 03/28/20 04:00 04:00 05:00 05:32 Temp 97.6 97.6 Pulse 94 96 Resp 30 B/P (MAP) 108/56 (73) 106/56 (73) Pulse Ox 92 94 92 O2 Delivery Ventilator Mechanical Ventilator Ventilator 03/28/20 03/28/20 03/28/20 03/28/20 06:00 07:00 08:00 08:00 Temp 99.3 99.3 Pulse 98 99 100 Resp 31 32 32 B/P (MAP) 112/56 (74) 108/55 (72) 112/58 (76) Pulse Ox 93 91 90 O2 Delivery Ventilator Ventilator Mechanical Ventilator Ventilator 03/28/20 03/28/20 03/28/20 03/28/20 08:05 09:00 10:00 11:00 Pulse 116 116 107 Resp 30 30 30 B/P (MAP) 98/55 (69) 109/57 (74) 90/55 (67) Pulse Ox 86 70 65 68 O2 Delivery Ventilator Ventilator Ventilator Ventilator 03/28/20 03/28/20 03/28/20 03/28/20 11:49 11:59 12:00 13:00 Temp 99.5 99.5 Pulse 110 110 Resp 32 30 B/P (MAP) 89/51 (64) 83/50 (61) Pulse Ox 78 73 68 O2 Delivery Mechanical Ventilator Ventilator Ventilator Ventilator 03/28/20 03/28/20 14:00 15:50 Pulse 109 Resp 30 B/P (MAP) 85/50 (62) Pulse Ox 73 78 O2 Delivery Ventilator Ventilator Intake and Output 03/27/20 03/27/20 03/28/20 15:00 23:00 07:00 Intake Total 550 ml 764 ml 1455 ml Output Total 450 ml 375 ml 300 ml Balance 100 ml 389 ml 1155 ml Justicifation of Admission Dx: Justifications for Admission: Justification of Admission Dx: Yes GABRIEL RODRIGUEZ MD Mar 28, 2020 16:12
[2020-03-28] MEDS ORDERED: IV NORMAL SALINE 1000ML BAG 1,000 ML IV SCH (16:15)
[2020-03-28] MEDS ORDERED: DIGOXIN IV 500 MCG/2 ML AMPUL. IV ONE (16:15)
[2020-03-28] MEDS ORDERED: IV NORMAL SALINE 500ML BAG 500 ML IV ONE (16:15)
[2020-03-28] MEDS: NOREPINEPHRINE VIAL 8 MG in IV DEXTROSE 5% 250 ML IV PRN ×2 (19:38→22:20)
[2020-03-28] MEDS ORDERED: PIPERACILLIN/TAZOBACTAM 2.25 GM in IV NORMAL SALINE 50ML 50 ML IV SCH (21:00)
[2020-03-28] MEDS: ATORVASTATIN CALCIUM 10 MG TABLET. PO SCH (21:16)
[2020-03-29] VITALS: BP 72/50
[2020-03-29] MEDS: DEXMEDETOMIDINE 400 MCG in IV NORMAL SALINE 100ML 96 ML IV PRN (00:08)
[2020-03-29] MEDS: NOREPINEPHRINE VIAL 8 MG in IV DEXTROSE 5% 250 ML IV PRN (00:08)
[2020-03-29 00:15] VITALS: BP 68/48
[2020-03-29 00:20] VITALS: BP 60/42
[2020-03-29 00:30] VITALS: BP 54/38
--- NOTE | 2020-03-29 00:30 | NUR ---
Spoke to Violet (DPOA) and Will , and gave update on pt's current condition. PT is maxed out on levo , BP is 60/40's , oxygen 50 to 60%, pt is DNR. Family understands that the pt's condition is critical, Violet said to keep her updated and that if he passes tonight he can be taken to [facility] home.
--- NOTE | 2020-03-29 02:18 | NUR ---
At 0032 pt showing asystole on the monitor,this nurse and Kortney russo RN assessed pt, auscultated for heart tones , and there were none, and there was no visible chest rise or any signs of breathing. Pt is DNR. I called Mari cee's Daughter and notified her of the pt's . No concerns voiced, she said she will notify other family members. Pt will be released to [facility]. DR Patterson was notified of pt's . Kortney russo RN called and notified [facility]. Pt 's body was placed in double bags per covid protocol and taken to the morgue. A phone enterprise mobility architect was found in the room and was sent together with pt's body, all other belongings were taken by Mari earlier during the day.
--- NOTE | 2020-04-03 16:06 | PDOC3 ---
Discharge Summary Visit Information Date of Admission: Mar 17, 2020 Date of Discharge: Mar 29, 2020 Final Diagnosis NSTEMI, acute systolic CHF, sepsis, hypotension with severe sepsis and septic shock COVID-19 with ARDS Acute hypoxic respiratory failure New onset atrial fibrillation for acute diastolic CHF severe Malnutrition acute renal failure, tried to dialyze could not tolerate due to tachycardia and hypotension, Brief Hospital Course Allergies Allergies Coded Allergies Type Severity Reaction Last Updated Verified No Known Drug Allergies 03/17/20 No Brief Hospital Course Mr. Bowie was a 74 old who was transferred from [facility] where he presented with altered mental status and non-STEMI. transferred here and declined from admit, was not a COVID pt intially on admit, but within a few days was on the ventilator (03/22) and we were not able to improve him over time. he declined over days, Discharge Information Condition at Discharge: / Justicifation of Admission Dx: Justifications for Admission: Justification of Admission Dx: Yes GABRIEL RODRIGUEZ MD Apr 03, 2020 16:06
== END 2020-03-29 02:05 | DRG 870 ==
LOC: 2 SOUTH 19:34 → 1 WEST ICU 03-18 18:26
PROVIDERS: ADMIT Internal Medicine; ATTEND Internal Medicine
PROC: 5A09357 Assistance with Respiratory Ventilation, Less than 24 Consecutive Hours, Continuous Positive Airway Pressure (ICD-10-PCS; 2020-03-17)
PROC: XW033E5 Introduction of Remdesivir Anti-infective into Peripheral Vein, Percutaneous Approach, New Technology Group 5 (ICD-10-PCS; 2020-03-18)
PROC: 5A09457 Assistance with Respiratory Ventilation, 24-96 Consecutive Hours, Continuous Positive Airway Pressure (ICD-10-PCS; 2020-03-19)
PROC: 5A1955Z Respiratory Ventilation, Greater than 96 Consecutive Hours (ICD-10-PCS; principal; 2020-03-22)
PROC: 0BH17EZ Insertion of Endotracheal Airway into Trachea, Via Natural or Artificial Opening (ICD-10-PCS; 2020-03-22)
PROC: 02HV33Z Insertion of Infusion Device into Superior Vena Cava, Percutaneous Approach (ICD-10-PCS; 2020-03-22)
PROC: 02H633Z Insertion of Infusion Device into Right Atrium, Percutaneous Approach (ICD-10-PCS; 2020-03-25)
PROC: B548ZZA Ultrasonography of Superior Vena Cava, Guidance (ICD-10-PCS; 2020-03-25)
PROC: 5A1D70Z Performance of Urinary Filtration, Intermittent, Less than 6 Hours Per Day (ICD-10-PCS; 2020-03-25)
PROC: 5A1D70Z Performance of Urinary Filtration, Intermittent, Less than 6 Hours Per Day (ICD-10-PCS; 2020-03-26)
PROC: 5A1D70Z Performance of Urinary Filtration, Intermittent, Less than 6 Hours Per Day (ICD-10-PCS; 2020-03-28)
DX: A41.89 Other specified sepsis (principal); U07.1 COVID-19; I21.4 Non-ST elevation (NSTEMI) myocardial infarction; E43 Unspecified severe protein-calorie malnutrition; R65.21 Severe sepsis with septic shock; J80 Acute respiratory distress syndrome; J12.82 Pneumonia due to coronavirus disease 2019; I50.21 Acute systolic (congestive) heart failure; D68.59 Other primary thrombophilia; N17.9 Acute kidney failure, unspecified; M62.82 Rhabdomyolysis; E87.4 Mixed disorder of acid-base balance; E87.0 Hyperosmolality and hypernatremia; Z66 Do not resuscitate; I46.9 Cardiac arrest, cause unspecified; N40.1 Benign prostatic hyperplasia with lower urinary tract symptoms; R33.8 Other retention of urine; I77.9 Disorder of arteries and arterioles, unspecified; I48.0 Paroxysmal atrial fibrillation; M19.90 Unspecified osteoarthritis, unspecified site; Y90.9 Presence of alcohol in blood, level not specified; E86.0 Dehydration; E87.5 Hyperkalemia; F10.10 Alcohol abuse, uncomplicated; I11.0 Hypertensive heart disease with heart failure; Z99.2 Dependence on renal dialysis; Z68.31 Body mass index [BMI] 31.0-31.9, adult; Z87.891 Personal history of nicotine dependence; Z79.899 Other long term (current) drug therapy
CPT/HCPCS: 36415; 36556; 36569; 36600; 71045; 76937; 80048; 80053; 80061; 82550; 82728; 82805; 82962; 83615; 83735; 83880; 84100; 84145; 84484; 85007; 85018; 85025; 85027; 85379; 85520; 86706; 87340; 93923; 93970; 94002; 94003; 94660; 94760; C1769; C1892; J0330; J0696; J1100; J1160; J1644; J1650; J1815; J1940; J2250; J2270; J2543; J2704; J3010; J3490; J7030; J7040; J7050; J7060; P9046; G0378